=== PATIENT | male | born 1935 | race Caucasian/White ===

== ENCOUNTER 2018-03-16 12:04 | Emergency (ER) | payer MEDICARE, OTHER ==
[~2018-03-16] VITALS: Ht 180.3 cm; Wt 81.2 kg
[~2018-03-16 12:04] MED LIST: GLUCOSAMINE CH1 EAC7 PO; KLOR-CON 1010 MEQ PO; LEVOTHYROXINE100 MCG PO; MAXZIDE 37.5 MG-1 EA PO; NORCO 5-325 TA1 EACH PO; PIROXICAM20 MG PO; SIMVASTATIN20 MG PO; VALPROIC ACID250 MG PO
== END 2018-03-16 13:25 | disposition home or self-care (01) ==
LOC: ED 12:04
DX: S01.21XA Laceration without foreign body of nose, initial encounter (principal)
CPT/HCPCS: 12002; 90471; 90715; 99283-25

== ENCOUNTER 2018-05-02 15:50 | Emergency (ER) | payer MEDICARE, OTHER ==
[~2018-05-02] VITALS: Ht 180.3 cm; Wt 81.2 kg
== END 2018-05-02 19:31 | disposition home or self-care (01) ==
LOC: ED 15:50
DX: K62.5 Hemorrhage of anus and rectum (principal); I10 Essential (primary) hypertension; Z86.73 Personal history of transient ischemic attack (TIA), and cerebral infarction without residual deficits; Z87.891 Personal history of nicotine dependence; Z88.8 Allergy status to other drugs, medicaments and biological substances; Z79.899 Other long term (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
CPT/HCPCS: 74177; 80053; 85025; 85610; 99283-25; Q9967

== ENCOUNTER 2019-01-25 08:15 | Emergency (ER) | payer MEDICARE, OTHER ==
[~2019-01-25] VITALS: Ht 180.3 cm; Wt 81.2 kg
[2019-01-25] MEDS ORDERED: SILDENAFIL20 MG PO (08:36)
[2019-01-25] MEDS ORDERED: DICLOFENAC SOD100 G1 TP (08:36)
[2019-01-25] MEDS ORDERED: LOSARTAN POTAS100 MG PO (08:37)
--- NOTE | 2019-01-25 17:51 | EKG ---
[facility] [address] [facility] [place] [address] Signed Normal sinus rhythm Left axis deviation Minimal voltage criteria for LVH, may be normal variant Abnormal ECG No previous ECGs available Confirmed by ANIA MCCONNELL DO ([id number]) on 01/25/2019 5:51:09 PM Electronically Signed By: ANIA MCCONNELL DO 01/25/19 1751 PATIENT NAME: PAWEL HERRERA Electrocardiogram DATE OF : 33 PHYSICIAN: ANIA MCCONNELL DO REPORT #: [id number] REPORT IS CONFIDENTIAL AND NOT TO BE RELEASED WITHOUT AUTHORIZATION
== END 2019-01-25 15:28 | disposition home or self-care (01) ==
LOC: ED 08:15
DX: M25.532 Pain in left wrist (principal); R47.9 Unspecified speech disturbances; I10 Essential (primary) hypertension; Z86.73 Personal history of transient ischemic attack (TIA), and cerebral infarction without residual deficits; Z87.891 Personal history of nicotine dependence; Z88.8 Allergy status to other drugs, medicaments and biological substances; Z79.899 Other long term (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
CPT/HCPCS: 70450; 70551; 71045; 80053; 84484; 85025; 85610; 85730; 93005; 93010; 99285-25

== ENCOUNTER 2019-03-12 02:18 | Emergency (ER) | payer MEDICARE, OTHER ==
[~2019-03-12] VITALS: Ht 177.8 cm; Wt 82.5 kg
[~2019-03-12 02:18] MED LIST changes: +ADVIL PM CAPLE1 EACH PO; +DICLOFENAC SOD100 G1 TP; +FLOMAX0.4 MG PO; +LOSARTAN POTAS100 MG PO; +NYQUIL; +SILDENAFIL20 MG PO
[2019-03-12] MEDS ORDERED: PERCOCET 5-3251 EACH PO (03:13)
== END 2019-03-12 04:20 | disposition home or self-care (01) ==
LOC: ED 02:18
DX: G40.909 Epilepsy, unspecified, not intractable, without status epilepticus (principal); I10 Essential (primary) hypertension; Z86.73 Personal history of transient ischemic attack (TIA), and cerebral infarction without residual deficits; Z88.8 Allergy status to other drugs, medicaments and biological substances; Z79.899 Other long term (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
CPT/HCPCS: 70450; 80053; 80164; 81001; 85025; 99284-25

== ENCOUNTER 2019-04-13 20:59 | Emergency (ER) | payer MEDICARE, OTHER ==
[~2019-04-13] VITALS: Ht 177.8 cm; Wt 82.5 kg
[~2019-04-13 20:59] MED LIST changes: +PERCOCET 5-3251 EACH PO
--- OUTSIDE RECORDS SUMMARY | 2019-04-13 21:02 | XMS ---
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 Mara VISIT COUNT (12 MO.) 4 WARREN Arias TOTAL 4 NOTE: Visits indicate total known visits. 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 - Allergy status to oth drug/meds/biol subst status - Epilepsy, unsp, not intractable, without status epilepticus - Essential (primary) hypertension 01/25/2019 08:16 [facility] [place] TYPE: Emergency COMPLAINT: - WEAKNESS DIAGNOSES: - Personal history of nicotine dependence - Prsnl hx of TIA (TIA), and cereb infrc w/o resid deficits - Weakness - Unspecified speech disturbances - Allergy status to oth drug/meds/biol subst status - Other detention (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 - Pain in left wrist - Essential (primary) hypertension 05/02/2018 15:50 [facility]EN [facility] [place] TYPE: Emergency COMPLAINT: - RECTAL BLEEDING DIAGNOSES: - Essential (primary) hypertension - Personal history of nicotine dependence - Other detention (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 - Lower abdominal pain, unspecified - Hemorrhage of anus and rectum - Allergy status to oth drug/meds/biol subst status - Prsnl hx of TIA (TIA), and cereb infrc w/o resid deficits INPATIENT VISIT TRACKING (12 MO.) 04/06/2019 10:33 Vin AUGUSTE TYPE: Surgery DIAGNOSES: - Hydronephrosis w ureteral stricture, NEC [email or web address]
[2019-04-13] MEDS ORDERED: DIPHENHYDRAMINE50 M1 PO (21:25)
[2019-04-13] MEDS ORDERED: BACTRIM DS TAB1 EACH PO (21:26)
[2019-04-13] MEDS ORDERED: KEFLEX500 MG PO (22:10)
== END 2019-04-13 22:37 | disposition home or self-care (01) ==
LOC: ED 20:59
DX: N48.22 Cellulitis of corpus cavernosum and penis (principal); I10 Essential (primary) hypertension; Z86.73 Personal history of transient ischemic attack (TIA), and cerebral infarction without residual deficits; Z87.891 Personal history of nicotine dependence; Z88.8 Allergy status to other drugs, medicaments and biological substances; Z79.899 Other long term (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
CPT/HCPCS: 81001; 99283

== ENCOUNTER 2019-10-23 12:52 | Emergency (ER) | payer MEDICARE, OTHER ==
[~2019-10-23] VITALS: Ht 177.8 cm; Wt 82.5 kg
[~2019-10-23 12:52] MED LIST changes: +BACTRIM DS TAB1 EACH PO; +DIPHENHYDRAMINE50 M1 PO; +KEFLEX500 MG PO
[2019-10-23] MEDS ORDERED: TAMSULOSIN HCL0.4 MG PO (13:07)
== END 2019-10-23 14:10 | disposition home or self-care (01) ==
LOC: ED 12:52
DX: R31.9 Hematuria, unspecified (principal)

== ENCOUNTER 2019-10-28 10:28 | Emergency (ER) | payer MEDICARE, OTHER ==
[~2019-10-28] VITALS: Ht 177.8 cm; Wt 82.5 kg
[~2019-10-28 10:28] MED LIST changes: +TAMSULOSIN HCL0.4 MG PO
--- OUTSIDE RECORDS SUMMARY | 2019-10-28 10:30 | XMS ---
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 - 2 Visits in 30 Days CARE PROVIDERS BYRON RIVAS Nurse Practitioner: Family 04/14/2019-Current PHONE: [phone] Stalin has no Care Guidelines for this patient. Care History Medical/Surgical 04/14/2019 [facility] - PATIENT HAS AN APT WITH PCP ON 04/17/19 FOR FOLLOW UP TO ED VISIT. - Patient is currently established with [facility]. If patient is seen in the ED during business hours. Please contact CHWs at [facility]. Care Recommendation: If this patient has had 5 or more Emergency Department visits in the last 12 months.\T\nbsp; Patient will require education on the scope and purpose of the ED as an acute care provider not a Primary Care Provider and should not be utilized for chronic conditions.\T\nbsp; These are guidelines and the provider should exercise clinical judgment when providing care. E.D. VISIT COUNT (12 MO.) [address] Jayme Miranda [address] [facility] TOTAL 7 NOTE: Visits indicate total known visits. ED/UCC VISIT TRACKING (12 MO.) 10/28/2019 10:29 [facility] [place] TYPE: Emergency COMPLAINT: - HIGH BP, DIZZYNESS 10/28/2019 00:00 [facility] [place] TYPE: Emergency COMPLAINT: - HIGH BP, RECENT POST OP 10/24/2019 16:15 Jayme AlfaroRani [place] TYPE: Emergency COMPLAINT: - POSSIBLE KIDNEY BLEEDING - DIZZINESS AND GIDDINESS - HEMATURIA UNSPECIFIED DIAGNOSES: 0. Hematuria, unspecified 1. Hematuria, unspecified 4. 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 - Allergy status to other drugs, medicaments and biological sub 03/12/2019 02:19 [facility] [place] TYPE: Emergency COMPLAINT: - SEIZURE SYMPTOMS DIAGNOSES: - Personal history of transient ischemic attack (TIA), and cere - Other half-way (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 - Allergy status to other drugs, medicaments and biological sub - Epilepsy, unspecified, not intractable, without status epilep - Essential (primary) hypertension 01/25/2019 08:16 [facility] [place] TYPE: Emergency COMPLAINT: - WEAKNESS DIAGNOSES: - Personal history of nicotine dependence - Personal history of transient ischemic attack (TIA), and cere - Weakness - Unspecified speech disturbances - Allergy status to other drugs, medicaments and biological sub - Other half-way (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 - Pain in left wrist - Essential (primary) hypertension INPATIENT VISIT TRACKING (12 MO.) 04/06/2019 10:33 Vin [facility] [place] TYPE: Surgery DIAGNOSES: - Hydronephrosis with ureteral stricture, not elsewhere classif [email or web address]
== END 2019-10-28 13:24 | disposition home or self-care (01) ==
LOC: ED 10:28
DX: I10 Essential (primary) hypertension (principal); Z79.899 Other long term (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; Z88.8 Allergy status to other drugs, medicaments and biological substances
CPT/HCPCS: 36415; 80053; 85025; 99283

== ENCOUNTER 2019-10-28 16:37 | Emergency (ER) | payer MEDICARE, OTHER ==
[~2019-10-28] VITALS: Ht 177.8 cm; Wt 82.5 kg
--- OUTSIDE RECORDS SUMMARY | 2019-10-28 16:40 | XMS ---
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 Care History Medical/Surgical 04/14/2019 [facility] - PATIENT HAS AN APT WITH PCP ON 04/17/19 FOR FOLLOW UP TO ED VISIT. - Patient is currently established with [facility]. If patient is seen in the ED during business hours. Please contact CHWs at [facility]. Care Recommendation: If this patient has had [...] VISIT COUNT (12 MO.) 1 [facility] NOTE: Visits indicate total known visits. ED/UCC VISIT TRACKING (12 MO.) 10/28/2019 16:38 [facility]EN [facility] [place] TYPE: Emergency COMPLAINT: - VOMITING, DIARRHEA 10/28/2019 10:29 [facility]ARREN [facility] [place] TYPE: Emergency COMPLAINT: - HIGH BP, DIZZYNESS 10/28/2019 00:00 WARREN [place] [place] TYPE: Emergency COMPLAINT: - HIGH BP, RECENT POST OP 10/24/2019 16:15 Riyaollie Willemotoniel AlfaroRani [place] TYPE: Emergency COMPLAINT: - POSSIBLE KIDNEY BLEEDING - DIZZINESS AND GIDDINESS - HEMATURIA UNSPECIFIED DIAGNOSES: 0. Hematuria, unspecified 1. Hematuria, unspecified 4. 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 - Allergy status to other drugs, medicaments and biological sub 03/12/2019 02:19 WARR[facility] TYPE: Emergency COMPLAINT: - SEIZURE SYMPTOMS DIAGNOSES: - Personal history of transient ischemic attack (TIA), and cere - 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
== END 2019-10-28 21:38 ==
LOC: ED 16:37
DX: I10 Essential (primary) hypertension (principal); Z88.8 Allergy status to other drugs, medicaments and biological substances; Z79.899 Other long term (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
CPT/HCPCS: 85025; 99284; J7030

== ENCOUNTER 2019-12-07 22:17 | Observation (INO) | payer MEDICARE, OTHER ==
[~2019-12-07] VITALS: Ht 177.8 cm; Wt 80.7 kg
--- OUTSIDE RECORDS SUMMARY | 2019-12-07 22:20 | XMS ---
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 Care History Medical/Surgical 10/30/2019 [facility] Patient scheduled to see Dr. Baker on 11/07/2019 04/14/2019 [facility] - PATIENT HAS AN APT WITH PCP ON 04/17/19 FOR FOLLOW UP TO ED VISIT. - Patient is currently established with [facility]. If patient is seen in the ED during business hours. Please contact CHWs at [facility]. Care Recommendation: If this patient has had [...] E.D. VISIT COUNT (12 MO.) 1 Jayme Arita HRani 8 WARREN Arias TOTAL 9 NOTE: Visits indicate total known visits. 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 Hematuria, unspecified 1. Hematuria, unspecified 4. Malignant neoplasm of unspecified ureter 10/23/2019 12:52 [facility] [place] TYPE: Emergency COMPLAINT: - BLOOD IN URINE DIAGNOSES: - Hematuria, unspecified 04/13/2019 21:00 WARREN [facility] [place] TYPE: Emergency COMPLAINT: - CATHETER PROBLEM DIAGNOSES: - Personal history of nicotine dependence - Personal history of transient ischemic attack (TIA), and cere - Essential (primary) hypertension - Cellulitis of corpus cavernosum and penis - Other nursing home (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 - Allergy status to other drugs, medicaments and biological sub 03/12/2019 02:19 WARREN Puri [facility] [place] TYPE: Emergency COMPLAINT: - SEIZURE SYMPTOMS DIAGNOSES: - Personal history of transient ischemic attack (TIA), and cere - Other nursing home (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 - Allergy status to [...] drugs, medicaments and biological sub - Other nursing home (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 - Pain in left wrist - Essential (primary) hypertension INPATIENT VISIT TRACKING (12 MO.) 11/29/2019 05:05 [facility] [place] TYPE: Oncology DIAGNOSES: - Neoplasm of unspecified behavior of bladder - Malignant neoplasm of right renal pelvis - Malignant (primary) neoplasm, unspecified - Unsteadiness on feet 04/06/2019 10:33 [facility] [place] TYPE: Surgery DIAGNOSES: - Hydronephrosis with ureteral stricture, not elsewhere classif [email or web address]
[2019-12-07] MEDS ORDERED: POLYETHYLENE GL17 GM PO (22:38)
[2019-12-07] MEDS ORDERED: OXYCODONE HCL5 MG PO (22:38)
[2019-12-07] MEDS ORDERED: ACETAMINOPHEN-1 EAC1 PO (22:39)
--- NOTE | 2019-12-08 06:32 | NUR ---
PT WAS SWABBED FOR COVID 19 FULL PPE DAWNED AND SAMPLE SENT TO [facility]
--- NOTE | 2019-12-08 06:55 | NUR ---
PT ARRIVED TO FLOOR AT 0635 AND WAS SLID OVER TO BED 2PA WITH DRAWSHEET. RR IS EVEN AND NONLABORED. PT IS CONFUSED, OBTAINED HX FROM CHART PT'S WENT HOME BEFORE ARRIVAL TO FLOOR. TELE IS IN PLACE AND IV IS INFUSING NS @125. MICHAEL ON ABDOMEN ARE INTACT. BED ALARM IS ON AND PT IS NOW SLEEPING. CALL LIGHT IS CLOSE.
--- NOTE | 2019-12-08 08:00 | NUR ---
PT AND IN ROOM, PT VERY CONFUSED ABOUT HIS CARE AND HIS IV SITE IS INCREASING HIS AGATION. LEFT TO GO HOME. 929 PT MOVED FROM 125 TO ROOM 119 DUE TO INCREASED CONFUSION. NEW IV STARTED DUE TO ONE IS INN HIS AC.
--- NOTE | 2019-12-08 08:49 | NUR ---
ASSSITED PATIENT TO SIDE OF BED TO USE URINAL. IN ROOM/ LEFT. 1PA PATIENT TO CHAIR FOR BREAKFAST, PATIENT VERY CONFUSED BUT PLEASANT. CHAIR ALARM ON! CALL LIGHT IN REACH.
[2019-12-08] MEDS ORDERED: TYLENOL EXTRA500 MG PO (08:56)
[2019-12-08] MEDS ORDERED: BENADRYL25 MG PO (08:59)
[2019-12-08] MEDS ORDERED: NYSTATIN15 GM TOP (09:03)
[2019-12-08] MEDS ORDERED: GABAPENTIN100 MG PO (09:04)
[2019-12-08] MEDS ORDERED: LOSARTAN POTASS50 MG PO (09:05)
[2019-12-08] MEDS ORDERED: POTASSIUM CHLO10 MEQ PO (09:07)
[2019-12-08] MEDS ORDERED: MULTI VITAMIN1 EACH PO (09:12)
--- NOTE | 2019-12-08 09:13 | NUR ---
MED REC COMPLETE
--- NOTE | 2019-12-08 10:00 | NUR ---
Spoke with Torito. He has difficulty with his memory, he lives in [place], but is unable to remember his home. Thinks it is 1 story. He is unable to remember his 's name. Thinks that he may use a walker. Attempted to call his and I am unable to contact. Later she arrives at the hospital and is able to answer questions. Discussed plan for discharge and what pt will need. Initially she denies need for him to go to SNF, but then agrees she can't take care of him. I will send his chart to [facility], discussed they do not have to accept placement, but it is best to have his name on the list. states she wants to do TC here as he was accepted to our program before he left [facility] and they decline. (Pt. was not accepted to our program). Discussed with TC is not an option available today as were are near capacity. H&P, progress notes, med list,OT notes and eval faxed to [facility] in case placement is needed next week.
--- NOTE | 2019-12-08 11:01 | NUR ---
WHEN PT WAS MOVED CHAIR ALARM PLACED UNDER HIS BACK DUE TO ROOM CALL LIGHT SYSTEM DOES NOT WORK. BUT WITH THE CHAIR ALARM UNDER HIS UPPER BACK AND BUTT WE CAN HERE HIM ALARM WITH ANY MOVEMENT. BED IN THE LOWER POSITION.
--- NOTE | 2019-12-08 11:14 | NUR ---
TALKED WITH ROD AND TUBE STRAIGHTENER REGARDING PT CONFUSION AND FAMILY ISSUES.
--- NOTE | 2019-12-08 11:55 | NUR ---
PT FEEDING SELF LUNCH AND WAS LOOKING AT THE CLOCK ON THE WALL AND STATES "THAT LOOKS LIKE A SPIDER" EXPLAINED THAT IT WAS A CLOCK.
--- NOTE | 2019-12-08 11:59 | NUR ---
PT HAS RETURNED AT THIS TIME. PT WAS NOT ABLE TO CALL HER BY NAME.
--- NOTE | 2019-12-08 13:20 | NUR ---
PT BED ALARM GOING OFF FOUND PT STANDING AT THE SIDE OF THE BED ASLEEP ON THE COUCH. PT AMBULATED TO BATHROOM VOIDED AND BACK TO BED. PT PULL-UP DRY. IN BED BED ALARM AND CHAIR ALARM PLACED ON AT THIS TIME. PT WILL BE MOVED TO ROOM 110 SOON.
--- NOTE | 2019-12-08 13:34 | NUR ---
PT MOVED FROM 119 TO 110 AT THIS TIME.
--- NOTE | 2019-12-08 13:42 | NUR ---
PATIENT MOVED TO NEW ROOM. IN ROOM. VITALS AND I&OS CHARTED. BED ALARM ON. CALL LIGHT IN REACH, NO OTHER NEEDS AT THIS TIME
--- NOTE | 2019-12-08 14:12 | NUR ---
PT UP WORKING WITH PT AT THIS TIME. REMAINS IN THE ROOM AND APPEARS ASLEEP.
--- NOTE | 2019-12-08 16:00 | NUR ---
PATIENTS CALLED FOR ASSTANCE. SIDE OF BED TO USE URINAL AND THEN TO CHIAR. CHAIR [place] IS ON, CALL LIGHT IN PATIENTS LAP.
--- NOTE | 2019-12-08 16:57 | NUR ---
PT UP IN THE CHAIR, CONTIOUES TO BE INPULSIVE AND NEEDEING CLOSE MONITORING. CHAIR ALARM ON , IN THE ROOM. DINNER HAS BEEN ORDERED FOR BOTH.
--- NOTE | 2019-12-08 18:14 | NUR ---
PT SPO2 DECRESED WHEN TRYING TO SLEEP O2 2L'S NC AND SPO2 INCREASED TO 93%. PT MEDICATED WITH TYLENOL FOR PAIN, BUT PT IS UNABLE TO SAY HE HAS PAIN. REDIRECTING PT TO WHERE HE IS AND HOW LONG HE HAS BEEN HERE. IS LEAVING AT THIS TIME. BED ALARM ON AND ACROSS FROM NURSING STATION. PT HAS DENTURES SOAKING IN THE BATHROOM
--- NOTE | 2019-12-08 18:34 | NUR ---
PT APPEARS TO BE SLEEPING.
--- NOTE | 2019-12-08 20:05 | NUR ---
IV PUMP WAS BEEPING, NEW BAG OF LR IS NOW INFUSING. PT IS RESTING WITH EYES CLOSED, RR IS EVEN AND NONLABORED. CALL LIGHT IS CLOSE AND BED ALARM IS ON.
--- NOTE | 2019-12-08 20:45 | NUR ---
PT LYING IN BED DOZING IN AND OUT OF SLEEP. UP OFTEN TO VOID. 1 PA. DENIES PAIN. NO SIGNS OF DISTRESS, FLACC SCORE 0. MIDLINE DRESSING REMOVED MICHAEL ARE INTACT, WELL APPROXIMATED, NO DRAINAGE NOTED. OLD DRAIN SITE TO RLQ WITH MODERATE AMOUNT OF SEROSANGUINOUS DRAINAGE. REMOVED OLD DRESSING, CLEANSED SKIN WITH BATH WIPES, APPLIED BARRIER CREAM TO SKIN SURROUNDING SITE AND APPLIED NEW GAUZE AND ABD, SECURED WITH MEDIPORE TAPE. O2 TURNED OFF PT SATTING 98% ON RA. LUNGS CLEAR, DIMINISHED IN THE BASES. NOTED CREPITUS TO SKIN EXTENDING FROM RIGHT LOWER CHEST TO RLQ, MD HENSON MADE AWARE, NO NEW ORDERS AT THIS TIME. VSS. ORIENTED TO SELF ONLY. BED ALARM ON.
--- NOTE | 2019-12-08 21:30 | NUR ---
BED ALARM SOUNDED. PT WANTED TO USE THE RESTROOM. 1PAFWW TO RESTROOM, HE WAS UNSTEADY. HE IS NOW BACK IN BED. WARM BLANKET PROVIDED. PT SOUNDED A LITTLE SOB WHILE AMBULATING, TURNED O2 TO 2LNC. ONCE BACK IN BED HE WAS 90% RA. PT TRIED CALLING HIS WITH NO ANSWER. HE DENIES NEEDS AT THIS TIME. CALL LIGHT IS CLOSE AND BED ALARM IS ON.
--- NOTE | 2019-12-08 22:26 | NUR ---
CAUGHT PT GETTING OUT OF BED, NEEDED TO USE URINAL, PT IS BK IN MED NOW, PT WAS LOOKING FOR HIS PHONE TO CALL , PT SHOWN WHERE HIS PHONE IS, INFORMED PT WE CAN HELP FAM THE NUMBER WHEN NEEDED, CALL LIGHT IN REACH, BED ALARM IS ON, NO FURTHER REQUEST AT THIS TIME
--- NOTE | 2019-12-08 23:22 | PATH ---
[facility] [address] [place], [place] [address] Signed ORDERING PHYSICIAN: Vidal Espitia MD PATIENT NAME: PAWEL HERRERA GENDER: M : 1935 Prior History: DATE CASE NUM ADEQUACY DIAGNOSIS HPV RESULTS PHYSICIAN The 5 most recent reports are included. This history does not include results of pap smears performed at another laboratory. SPECIMEN(S): No Source Given MOLECULAR PATHOLOGY RESULTS: SARS-CoV-2 Not Detected ADDITIONAL NOTES.: The [place] Fusion SARS-CoV-2 Assay is a multiplex real-time PCR (RT-PCR) in vitro diagnostic test intended for the qualitative detection of RNA from SARS-CoV-2 from individuals who meet COVID-19 clinical and/or epidemiological criteria. In general, SARS-CoV-2 RNA can be detected during the acute phase of infection. Positive results indicate the presence of SARS-CoV-2 RNA. Clinical correlation with patient history and other diagnostic information is necessary to determine patient infection status. Positive results do not rule out bacterial infection or co-infection with other viruses. Negative results do not preclude SARS-CoV-2 infection and should not be used as the sole basis for patient management decisions. Negative results must be combined with other clinical observations, patient history, and epidemiological information. The [place] Fusion SARS-CoV-2 Assay is not yet approved or cleared by the [place] FDA. When there are no FDA-approved or cleared tests available, and other criteria are met, FDA can make tests available under an emergency access mechanism called an Emergency Use Authorization (EUA). The EUA for this test is supported by the [place] of Health and Human Service's (HHS's) declaration that circumstances exist to justify the emergency use of in vitro diagnostics for the detection and/or diagnosis of the virus that causes COVID-19. This EUA will remain in effect for the duration of the COVID-19 declaration justifying emergency of IVDs, unless it is terminated or PATIENT NAME: PAWEL HERRERA PATHOLOGY DATE OF : 33 REPORT #: [id number] PHYSICIAN: HOLLIS ARELLANO PCP: BYRON RIVAS REPORT IS CONFIDENTIAL AND NOT TO BE RELEASED WITHOUT AUTHORIZATION [facility] [address] [address] [place], [place] [address] Signed revoked by FDA, after which the test may no longer be used. The [place] Fusion SARS-CoV-2 Assay is for use only under EUA in US laboratories certified under the Clinical Laboratory Improvement Amendments of 1988 (CLIA) to perform high complexity tests. [facility] is certified under CLIA to perform high complexity clinical laboratory testing. PERFORMING LABORATORY.: Molecular testing was performed by [facility] [id number] [place] [address] (Generating Plant Superintendent: Manjit Lerma D.O.; CLIA#: [id number]) Diagnostician: System Interface Pathologist Electronically Signed 12/08/2019 Copies: ~ PATIENT NAME: PAWEL HERRERA PATHOLOGY DATE OF : 33 REPORT #: [id number] PHYSICIAN: HOLLIS ARELLANO PCP: BYRON RIVAS REPORT IS CONFIDENTIAL AND NOT TO BE RELEASED WITHOUT AUTHORIZATION
--- NOTE | 2019-12-08 23:25 | NUR ---
CAUGHT PT EXITING BED, GOT PT TO THE BATHROOM, PT NEEDED A CHANGE OF ATTENDS AND GOWN, AFTER SPILLING URINAL OF THE FLOOR, BK PT BK TO THE BED, AND PT RIPPED LRQ BANDAGE TRYING TO GET ATTENDS UP, CALL RN INTO RM TO CHANGE, GOT PT TUCKED INTO BED, ENCOURAGED PT THE SCOOT SELF UP IN BED, PT WANTS TO TELL ME THINGS BUT CANNOT GET THE RIGHT WORDS OUT, PT TELLS ME [facility]BT WANTING A SHAVE AND NEEDING TO CALL AND HOW HIS HELPS HIM, INFORMED PT THAT IT IS ONLY 1130 PM, AND THAT WE CAN HELP HIM SHAVE IN THE AM AND CALL THEN, PT SEEMS TO AGREE AT THIS TIME, NO FURTHER NEEDS,
--- NOTE | 2019-12-08 23:41 | NUR ---
PT ASSISTED TO RESTROOM BY SHAUNA RAYMOND. AMB BACKTO BED. PT RESTLESS IN BED. BED ALARM ON.
--- NOTE | 2019-12-09 00:13 | NUR ---
PT STARTED TO SIT UP IN BED, HE NEEDED TO USE THE URINAL. ASSISTED PT TO STAND AT BEDSIDE AND USE URINAL. HE IS NOW BACK IN BED WITH BED ALARM ON AND CALL LIGHT IS CLOSE.
--- NOTE | 2019-12-09 01:05 | NUR ---
VERBAL REPORT RECEIVED FROM CHRIS BLACK. QUESTIONS ANSWERED. PT RESTING IN BED WITH EYES CLOSED, RR EVEN AND UNLABORED. NO DISTRESS NOTED. CALL LIGHT IN REACH AND BED ALARM ON.
--- NOTE | 2019-12-09 03:20 | NUR ---
PT UP AND ATTMEPTING TO GET OUT OF BED, ASSISTED 1PA WITH FWW TO BATHROOM TO VOID. PT INCONTINENT AND VOIDING INTO ATTENDS AND UNTO FLOOR. WALTER CARE DONE, FRESH SOCKS GIVEN. PT THEN UP 1PA WITH FWW BACK TO BED. ASSESSMENT ALSO DONE AT THIS TIME. NEW GAUZE AND ABD PAD TO PREVIOUS DRAIN SITE TO RLQ, CREPITUS NOTED APPROX 1/3 TO 1/2 UP RIGHT LATERAL. PT DENIES PAIN AND SOB. O2 SAT IN THE LOW 90'S ON RA, HR 61. NO DISTRESS, BED ALARM ON FOR SAFETY. CALL LIGHT IN REACH.
--- NOTE | 2019-12-09 04:24 | NUR ---
PATIENT'S CALLED AND ASKED FOR UPDATE. QUESTIONS ANSWERED. NO FURTHER NEEDS/CONCERNS/QUESTIONS AT THIS TIME.
--- NOTE | 2019-12-09 05:16 | NUR ---
VS AND I&O'S COMPLETE. SCHEDULED THYROID MED GIVEN, NO ISSUES WITH SWALLOWING. PT UP TO VOID VIA URINAL AND BACK IN BED. BATCH MIXER SEGUNDO IN ROOM ASSISTING WITH FINAL NEEDS AND POSITIONING IN BED.
--- NOTE | 2019-12-09 07:20 | NUR ---
PT RESTING SUPINE IN BED EYES CLOSED AND RESPIRATIONS EVEN AND UNLABORED. CALL LIGHT AND H2O IN REACH. REPORT RECEIVED FROM KIRA KHALIL RN.
--- NOTE | 2019-12-09 07:35 | NUR ---
PATIENT SLEEPING. WHITE BOARD UPDATED. CALL LIGHT WITHIN REACH. NO OTHER NEEDS AT THIS TIME
--- NOTE | 2019-12-09 08:06 | NUR ---
PT SITTING UP IN BED BED ALARM IS GOING OFF PT STATES "I GOTTA PEE!" PT ASSISTED TO STANDING POSITION AND WAS ASSISTED WITH URINAL. PT VOIDS CLEAR YELLOW URINE AND WAS ASSISTED UP TO CHAIR AND CALL LIGHT AND H2O IN REACH. CHAIR ALARM ON. PT DENIES FURTHER NEEDS OR CONCERNS.
--- NOTE | 2019-12-09 08:24 | NUR ---
PATIENT ASSITED TO USE THE URINAL AND TRANSFER TO CHAIR. PATIENT'S HANDS AND FACE WASHED. LINENS CHANGED. PATIENT BREAKFAST ORDERED. WARM BLANKET PROVIDED. CHAIR ALARM ON. CALL LIGHT WITHIN REACH. NO OTHER NEEDS AT THIS TIME
--- NOTE | 2019-12-09 08:58 | NUR ---
Pt sitting up in chair eating omlet adn watching tv. Assessment completed and am meds administered. Call light and h2o in reach.
--- NOTE | 2019-12-09 09:48 | NUR ---
Pt up walked several laps in halls with physical therapy.Pt now back to bed resting in semifowlers position with call light in [facility] and bed alarm on.
--- NOTE | 2019-12-09 09:58 | NUR ---
PATIENT RESTING IN BED. RN IN ROOM. VITAL SIGNS AND I&O DONE. HIGH SYSTOLIC BLOOD PRESSURE. RN NOTIFIED. CALL LIGHT WITHIN REACH. BED ALARM ON. NO OTHER NEEDS AT THIS TIME
--- NOTE | 2019-12-09 11:56 | NUR ---
PATIENT RESTING IN BED. PATIENT'S LUNCH ORDERED. CALL LIGHT WITHIN REACH. BED ALARM ON. NO OTHER NEEDS AT THIS TIME
--- NOTE | 2019-12-09 13:14 | NUR ---
PATIENT ASSISTED TO USE THE URINAL. ONE PERSON ASSISTING. PATIENT BACKS TO BED. VITAL SIGNS AND I&O DONE. CALL LIGHT WITHIN REACH. NO OTHER NEEDS AT THIS TIME
--- NOTE | 2019-12-09 13:35 | NUR ---
PT RESTING IN SEMIFOWLERS POSITION IN BED ALERT AND ORIENTED. CALL LIGHT AND H2O IN REACH. PT ASSESSMENT COMPLETED. NO NEEDS OR CONCERNS VOICED.
--- NOTE | 2019-12-09 14:30 | NUR ---
RIGHT LOWER INCISION CONTINUES TO WEAP CLEAR SEROUS FLUID DR HENSON AWARE AND THIS WAS COVERED WITH OPSITE PER MD REQUEST. GOWN CHANGED. CALL LIGHT AND H2O IN REACH.
--- NOTE | 2019-12-09 16:53 | NUR ---
Pt reports aching 4/10 pain to lower back. Pt requested and received prn po tylenol. Call light and h2o in reach. No further needs or concerns voiced
--- NOTE | 2019-12-09 17:15 | NUR ---
Pt sitting up in bed eating steak, mashed potatoes and veggies. Pt denies needs or concerns. at bedside with pt. bed alarm on.
--- NOTE | 2019-12-09 17:48 | NUR ---
PATIENT SITTING UP IN BED. IN ROOM. VITAL SIGNS AND I&O DONE. CALL LIGHT WITHIN REACH. BED ALARM ON. NO OTHER NEEDS AT THIS TIME
--- NOTE | 2019-12-09 18:47 | NUR ---
BED ALARMING PT STATES "IV GOT TO GET TO THE BATHROOM" ASSISTED UP TO RESTROOM PT HAD UNMEASURED VOID IN TOILET. PT BACK TO BED BED ALARM ON IV FLUIDS INFUSING. NO FURTHER NEEDS OR CONCERS VOICED. PT REMAINS IN VIEW OF NURSING STATION.
--- NOTE | 2019-12-09 19:02 | NUR ---
SHIFT REPORT [facility] AT BEDSIDE. PT RESTING QUIETLY IN BED WITH EYES CLOSED. RR EVEN AND UNLABORED, NO DISTRESS NOTED. IV FLUIDS INFUSING, BED AARM ON. CALL LIGHT IN REACH.
--- NOTE | 2019-12-09 21:59 | NUR ---
PT CALLED FOR ASSISTANCE TO RESTROOM, THEN STARTED HANGING LEGS OVER SIDE OF BED. 1PA TO RESTROOM AND BACK TO BED. HE DENIES FURTHER NEEDS AT THIS TIME. CALL LIGHT IS CLOSE AND BED ALARM IS ON.
--- NOTE | 2019-12-09 22:14 | NUR ---
IV PUMP WAS BEEPING, NEW BAG OF LR IS NOW INFUSING. PT DENIES NEEDS. CALL LIGHT IS CLOSE AND BED ALARM IS ON.
--- NOTE | 2019-12-09 22:30 | NUR ---
ASSESSMENT COMPLETE, SCHEDULED MEDS GIVEN (SEE EMAR). PT DENIES PAIN AND NAUSEA. A/O ONLY TO SELF, BED ALARM ON. OPSITE TO RLQ INTACT, ABD COVER REMAINS IN PLACE. WILL MONITOR, DRAINAGE. NO ADDITIONAL NEEDS, CALL LIGHT IN REACH.
--- NOTE | 2019-12-09 22:30 | NUR ---
TOOK PT VITALS, I&Os IN, FRESH ICE WATER PROVIDED, RN TO BE IN RM SHORTLY, NO FURTHER REQUEST AT THIS TIME
--- NOTE | 2019-12-09 23:00 | NUR ---
PT ATTEMPTING TO GET OUT OF BED, 1PA TO VOID VIA URINAL. PT BACK TO BED, DENIES FURTHER NEEDS, CALL LIGHT IN REACH.
--- NOTE | 2019-12-09 23:39 | NUR ---
PT CALLED, NEEDED HELP TURNING TV OFF, ASST'D PT, NO FURTHER REQUEST AT THIS TIME
--- NOTE | 2019-12-10 00:25 | NUR ---
PT RESTING IN BED WITH EYES CLOSED. RR EVEN AND UNLABORED, NO DISTRESS NOTED. IV FLUIDS INFUSING PER MD ORDERS. CALL LIGHT IN REACH.
--- NOTE | 2019-12-10 01:35 | NUR ---
PT ATTEMPTING TO CRAWL OUT OF BED, PT ASSISTED VIA 1P WITH URINAL AND BACK TO BED. ALARM ON, NO FURTHER NEEDS, CALL LIGHT IN REACH.
--- NOTE | 2019-12-10 03:32 | NUR ---
PT RECENTLY UP TO VOID, ASSESSMENT COMPLETE. NO NEW CHANGES. PT DENIES PAIN OR NAUSEA. OPSITE DRESSING AND ABD PAD REPLACED. CREPITUS REMAINS TO RIGHT LATERAL. NO SOB OR DISTRESS NOTED. PT REMAINS A/O ONLY TO SELF. IV SITE X2 WNL, IV FLUIDS INFUSING. CALL LIGHT IN REACH AND BED ALARM ON.
--- NOTE | 2019-12-10 04:54 | NUR ---
PT CALLED TO GET UP AND VOID, PROVIDED PT WITH URINAL, PT IS NOW BK TO BED AT THIS TIME, NO FURTHER REQUESTS, CALL LIGHT IS IN PLACE, BED ALARM IS SET
--- NOTE | 2019-12-10 05:01 | NUR ---
VSS AND I&O'S COMPLETE. SCHEDULED THYROID MED GIVEN (SEE EMAR). PT DENIES ADDITIONAL NEEDS, CALL LIGHT IN REACH. BED ALARM ON FOR SAFETY.
--- NOTE | 2019-12-10 07:28 | NUR ---
PT RESTING SUPINE IN BED EYES CLOSED AND RESPIRATIONS EVEN AND UNLABORED. BED ALARM ON AND PT WITHIN VIEW OF NURSING STATION. REPORT RECEIVED FROM NOC SHIFT RN.
--- NOTE | 2019-12-10 07:40 | NUR ---
PATIENT SLEEPING. WHITE BOARD UPDATED. CALL LIGHT WITHIN REACH. NO OTHER NEEDS AT THIS TIME
--- NOTE | 2019-12-10 08:42 | NUR ---
PT RESTING SUPINE IN BED ALERT TO VOICE, AM MEDS ADMINISTERED. ASSESSMENT COMPLETED. CALL LIGHT AND H2O IN REACH. BED ALARM ON
--- NOTE | 2019-12-10 09:51 | NUR ---
PATIENT RESTING IN BED. VITAL SIGNS AND I&O DONE. CALL LIGHT WITHIN REACH. NO OTHER NEEDS AT THIS TIME
--- NOTE | 2019-12-10 10:55 | NUR ---
PER DR HENSON'S REQUEST ABDOMINAL STAPLE (X15) WERE REMOVED AT THIS TIME. MICHAEL CAME OUT WITHOUT DIFFICULTY, SKIN TO SITES WHERE MICHAEL WERE REMOVED REMAINS APPROXIMATED WITH NO S/SX'S OF INFECTION AND PT TOLERATED WELL. CALL LIGHT AND H2O IN REACH AND BED ALARM ON.
--- NOTE | 2019-12-10 11:01 | NUR ---
PATIENT RESTING IN BED. PATIENT USES THE BATHROOM. PATIENT TAKES A SHOWER. ORAL CARE DONE. SHAVE DONE. PATIENT BACKS TO CHAIR. ONE PERSON ASSISTING WITH WALKER. LINENS CHANGED. CALL LIGHT WITHIN REACH. CHAIR ALARM ON. NO OTHER NEEDS AT THIS TIME
--- NOTE | 2019-12-10 13:05 | NUR ---
PT RESTING IN SEMIFOWELRS POSITION IN BED ALERT AND ORIENTED TO SELF WATCHING TV. PT ASSESSMENT COMPLETED. CALL LIGHT AND H2O IN REACH. PT REMAINS IMPULSIVE. BED ALARM ON AND PT REMAINS IN VIEW OF NURSING STATION. WILL CTM.
--- NOTE | 2019-12-10 13:36 | NUR ---
PATIENT SITTING UP IN BED. VITAL SIGNS AND I&O DONE. CALL LIGHT WITHIN REACH. NO OTHER NEEDS AT THIS TIME
--- NOTE | 2019-12-10 15:35 | NUR ---
PT SITTING UP IN BED ALERT AND ORIENTED TO SELF, FRESH H2O IN REACH, DINNER ORDERED. CALL LIGHT IN REACH. BED ALARM ON. NO NEEDS OR CONCERNS VOICED.
--- NOTE | 2019-12-10 17:13 | NUR ---
PATIENT SITTING UP IN BED. VITAL SIGNS AND I&O DONE. SETS UP TABLE FOR DINNER. ICE WATER GIVEN. CALL LIGHT WITHIN REACH. NO OTHER NEEDS AT THIS TIME
--- NOTE | 2019-12-10 18:20 | NUR ---
CALL LIGHT ANSWERED. PATIENT COMPLAINS ABOUT HEADACHE. RN NOTIFIED. CALL LIGHT WITHIN REACH. NO OTHER NEEDS AT THIS TIME
--- NOTE | 2019-12-10 18:31 | NUR ---
PT ALERT AND ORIENTED TO PERSON. PT REPORTS MILD HEADACHE AND BACK PAIN. PRN TYLENOL ADMINISTERED PER PT REQUEST. CALL LIGHT AND H2O IN REACH.
--- NOTE | 2019-12-10 19:00 | NUR ---
SHIFT REPORT RECEIVED FROM DAYSNDFT CHRIS RIOS AT BEDSIDE. PT AWAKE AND RESTING IN BED. RR EVEN AND UNLABORED. NO DISTRESS NOTED. IV FLUIDS INFUSING, BED ALARM ON. CALL LIGHT IN REACH.
--- NOTE | 2019-12-10 19:55 | NUR ---
TOOK PT VITALS AND I&Os IN, RN WILL BE IN WITH PM MEDS AND ASSESSMENT SHORTY, CALL LIGHT IN HAND, BED ALARM REMAINS ON, NO FURTHER REQUEST AT THIS TIME
--- NOTE | 2019-12-10 20:26 | NUR ---
ASSESSMENT COMPLETE, SCHEDULED MEDS GIVEN (SEE EMAR). PT RECENTLY MEDICATED WITH PRN TYLENOL. RATES PAIN 10/15, SCHEDULED GABAPENTIN GIVEN. PT A/O TO PERSON, PLACE, AND DATE. BED ALRM REMAINS ON FOR SAFETY. IV FLUIDS INFUSING PER MD ORDERS, SITES X2 WNL. PT DENIES NAUSEA. INCISION WNL, OPEN TO AIR, MICHAEL REMOVED EARLIER ON DAYSHIFT PER REPORT. OLD DRAIN SITE TO RLQ REMAINS SEEPING, ABD PAD IN PLACE, SEROUS IN COLOR. GENERALIZED CREPITUS CONTINUES TO RIGHT LATERAL. NO FURTHER NEED, CALL LIGHT IN REACH.
--- NOTE | 2019-12-10 20:58 | NUR ---
pt used call light to ask for assistance into the restroom. pt had lg BM, nothing further needed at this time, bed alarm set, call light and BST in place.
--- NOTE | 2019-12-10 21:15 | NUR ---
pt used call light to ask for his dentures to be placed in denture cup. nothing further needed at this time.
--- NOTE | 2019-12-10 23:46 | NUR ---
PT CALLED TO HELP WITH VOID VIA URINAL. PT BACK TO BED, ABD PAD TO RLQ REPLACED. NO FURTHER NEEDS. IV FLUIDS INFUSING, SITE WNL. BED ALARM ON. CALL LIGHT IN REACH.
--- NOTE | 2019-12-11 01:52 | NUR ---
CALL LIGHT ANSWERED. SBA AT SIDE OF BED FOR VOID IN URINAL. pt BACK IN BED, ALARM IN PLACE. C/O PAIN IN RIGHT LOWER ABD, RIGHT SIDE, 5-10. PRN TYLENOL ADMINISTERED, ICE PACK IN PLACE. PRIMARY RN REMI NOTIFIED AND IN ROOM ASSESSING pt. CALL LIGHT IN REACH.
--- NOTE | 2019-12-11 01:53 | NUR ---
provided an ice pack per pt request
--- NOTE | 2019-12-11 02:01 | NUR ---
ROUNDED ON PT, RECENTLY MEDICATED WITH PRN TYLENOL FOR 5-6/10 IN RLQ. ABD PAD REMAINS IN PLACE. CALLS APPROPERIATELY AT THIS TIME. IV FLUIDS INFUSING, SITE WNL. ICE PACK TO ABD FOR COMFORT. NO FURTHER NEEDS, CALL LIGHT IN REACH.
--- NOTE | 2019-12-11 04:33 | NUR ---
VS AND I&O'S COMPLETE. NEW BAG IV FLUIDS HUNG AND INFUSING PER MD ORDERS. IV SITES X2 WNL. BED ALRM ON, ROOM TIDED. NO FURTHER NEEDS, CALL LIGHT IN REACH AND BED ALARM ON.
--- NOTE | 2019-12-11 05:43 | NUR ---
SCHEDULED THYROID MED GIVEN (SEE EMAR). NO ISSUES NOTED. CALL LIGHT IN REACH AND BED ALRM ON FOR SAFETY.
--- NOTE | 2019-12-11 06:46 | NUR ---
PT REFUSING TO GET OOB TO VOID, RECENTLY REPORTED NEED TO VOID. PT ALSO REFUSING VS, EDUCATION PROVIDED ON BOTH. PT CONTINUES TO REFUSE. FLOAT TENDER MADE AWARE.
--- NOTE | 2019-12-11 07:15 | NUR ---
BEDSIDE HANDOFF REPORT RECEIVED FROM REGISTERED NURSE CARDIOVASCULAR ICU RN. PT RESTING IN BED. IV FLUIDS INFUSING AT 100ML/HR. PT DENIES NEEDS AT THIS TIME.
--- NOTE | 2019-12-11 07:58 | NUR ---
PATIENT SLEEPING. WHITE BOARD UPDATED. CALL LIGHT WITHIN REACH. NO OTHER NEEDS AT THIS TIME
--- NOTE | 2019-12-11 08:40 | NUR ---
PT ASSISTED TO USE URINAL AND THEN SBA TO CHAIR FOR BREAKFAST. PT ON ROOM AIR, LUNG SOUNDS CLEAR. BOWEL TONES ACTIVE, DENIES NAUSEA, TOLERATING LOW SODIUM DIET. CMS INTACT, WITHOUT EDEMA. IV INFUSING LR AT 100 ML/HR. PT DENIES OTHER NEEDS AT THIS TIME.
--- NOTE | 2019-12-11 09:12 | NUR ---
THIS AM STAFF MEETING WITH MD FLAQUITA SAID SHE WANTS PT TO BE S/L THIS AM. IVF S/L AT THIS TIME.
--- NOTE | 2019-12-11 09:20 | NUR ---
Spoke with Torito. He is upset with as she states he cannot come home. States his children are upset by this. He does agree to go to a SNF for rehab. I sent the chart last Wednesday to [facility]. I have called and am awaiting return call.
--- NOTE | 2019-12-11 09:30 | NUR ---
Received call from Gilma, pt's daughter in law. She states her immediate family have been exposed to Covid and are on isolation as well as pt's other son. She states pt's , Barbara is stating she has covid, but has not been exposed to any of the family. Updated Barbara last week had suggest Torito go to a SNF for rehab so I have sent the chart to [facility]. I called Barbara and she states she and her brother who transport Torito home from his surgery are both not feeling well. She has not been tested for covid and states she does not have the money. Discussed she needs to have a test. is not wanting to get tested.
--- NOTE | 2019-12-11 09:30 | NUR ---
MORNING MEDICATIONS ADMINISTERED PER EMAR. CASE MANAGEMENT AT BEDSIDE, DISCUSSED DISCHARGE TO SNF FOR P.T. PT ASSISTED TO MAKE PHONE CALL. PT DENIES OTHER NEEDS AT THIS TIME.
--- NOTE | 2019-12-11 09:45 | NUR ---
PATIENT SITTING UP IN CHAIR. VITAL SIGNS AND I&O DONE. CALL LIGHT WITHIN REACH. CHAIR ALARM ON. NO OTHER NEEDS AT THIS TIME
--- NOTE | 2019-12-11 10:25 | NUR ---
PT REQUEST PAIN MEDICATION, FOR 5/10 GENERALIZED PAIN. TYLENOL 500MG PO PRN.
--- NOTE | 2019-12-11 10:26 | NUR ---
PT ON THE PHONE TALKING TP FAMILY ABOUT SWINGBED PROGRAM. HE SAID HE DISCUSSED IT WITH ANDRZEJ PEREZ.
--- NOTE | 2019-12-11 11:23 | NUR ---
FREE WATER FLUSH OF 50ML WATER PER ORDER, G TUBE WITH 5ML RESIDUAL. PT RATING PAIN 6/10, GIVEN 30MG TORADOL IV. PT REQUESTING BROTH, ICE CREAM AND TEA WITH HONEY, ORDER PLACED WITH DIETARY. PT REQUESTING SHOWER, WILL COMPLETE AFTER CEFEPIME INFUSION COMPLETED. PT DENIES OTHER NEEDS AT THIS TIME.
--- NOTE | 2019-12-11 12:00 | NUR ---
Called and left a message with WBT as I have not received a return phone call.
--- NOTE | 2019-12-11 13:55 | NUR ---
PATIENT SITTING UP IN CHAIR. VITAL SIGNS AND I&O DONE. CALL LIGHT WITHIN REACH. NO OTHER NEEDS AT THIS TIME
--- NOTE | 2019-12-11 13:58 | NUR ---
Received updated from ETHAN Villanueva, new intake person. She states she has spoken with [facility] e mail system administrator and Annelise RN and due to census and staffing, they are unable to take pts. for the next few days. Called and spoke to both Barbara and Gilma. UPdated I will work on finding a [facility]. Matthew states pt cannot go to [place]. Chart faxed to [facility] and rehab. Per Gilma, pt's daughter lives in [place] and Gilma also works there.
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
--- NOTE | 2019-12-11 14:30 | NUR ---
PT ASSISTED FROM BATHROOM TO BED, BED ALARM IN PLACE. PT DENIES OTHER NEEDS AT THIS TIME.
--- NOTE | 2019-12-11 17:03 | NUR ---
PATIENT SITTING UP IN CHAIR. SISTER IN LAW IN ROOM. VITAL SIGNS AND I&O DONE. CHAIR ALARM ON. CALL LIGHT WITHIN REACH. NO OTHER NEEDS AT THIS TIME
--- NOTE | 2019-12-11 17:45 | NUR ---
PT HAD UNEVENTFUL DAY. AWAITING DISCHARGE TO SNF, PENDING ACCEPTANCE OR BED AVAILABILITY. PT UP WITH SBA WITH FWW. PT ALERT AND ORIENTED, IMPULSIVE. PT ON ROOM AIR, LUNG SOUNDS CLEAR. VOIDING QS. TOLERATING DIET.
--- NOTE | 2019-12-11 19:31 | NUR ---
REPORT RECEIVED FROM CHRIS SPARROW. PATIENT RESTING IN BED, LIGHTS OFF. BED ALARM ON. A+O. CALL LIGHT IN REACH. PT STATES NO NEEDS AT THIS TIME.
--- NOTE | 2019-12-11 20:17 | NUR ---
SCHEDULED MEDICATIONS ADMINISTERED. ASSESSMENT COMPLETE, VS AND I/O'S COMPLETE. PRN PAIN MEDICATION GIVEN. PATIENT AMBULATED TO TO VOID, SBA. ORAL CARE COMPLETE. WATER REFRESHED, REPOSITIONED IN BED, LIGHTS OFF. CALL LIGHT WITHIN REACH. IV WNL. PT REPORTS NO OTHER NEEDS AT THIS TIME.
--- NOTE | 2019-12-11 23:21 | NUR ---
ANSWERED CALL LIGHT, PT USED URINAL TO VOID THEN AMBULATED TO BR, 1X STOOL. PATIENT STATES NO PAIN. STEADY GAIT. BACK TO BED, CALL LIGHT IN REACH. NO FURTHER NEEDS AT THIS TIME.
--- NOTE | 2019-12-12 00:51 | NUR ---
ROUNDED ON PATIENT, LAYING IN BED, EYES CLOSED WITH LIGHTS OFF. BREATHING EVEN AND UNLABORED. CALL LIGHT WITHIN REACH. NO APPARENT NEEDS AT THIS TIME.
--- NOTE | 2019-12-12 05:30 | NUR ---
[facility] DOWNTIME. PT USES CALL LIGHT APPROPRIATELY, HAS AMBULATED TO AND ALSO USED URINAL TO VOID. ASSESSMENT COMPLETE, VS AND I/O'S COMPLETE. PT REPORTS NO PAIN OR NAUSEA AT THIS TIME. BED IN LOW POSITION, BED ALARM ON. CALL LIGHT WITHIN REACH.
--- NOTE | 2019-12-12 05:39 | NUR ---
[facility] DOWNTIME THIS SHIFT. PATIENT HAS USED CALL LIGHT APPROPRIATELY, USING URINAL OR AMBULATING TO BR TO VOID. PRN TYLENOL ADMINISTERED x1 WITH RELIEF FOUND. ON ROOM AIR, TOLERATING WELL. CRACKLES IN LUNG BASES. HEART SOUNDS REGULAR. BOWEL TONES ACTIVE, A+O, VSS. INCISIONS WNL, NO DRAINAGE NOTED. WILL CONTINUE TO MONITOR.
--- NOTE | 2019-12-12 06:03 | NUR ---
ANSWERED CALL LIGHT, PT USED URINAL TO VOID. SCHEDULED MEDICATIONS ADMINISTERED. PT STATES NO OTHER NEEDS AT THIS TIME. CALL LIGHT IN REACH.
--- NOTE | 2019-12-12 07:25 | NUR ---
THIS RN RECIEVED REPORT FROM ANDREAS PEREZ. PT APPEARS TO BE RESTING IN BED AT THIS TIME WITH RESPIRATIONS NOTED AND CALL LIGHT WITHIN REACH.
--- NOTE | 2019-12-12 09:00 | NUR ---
Per IDT meeting with Dr. Rey, Torito has met his goals. PT states he has met their goals and he no longer qualifies for a SNF placement. Updated I will call his , but she has been resistant as she feels she has covid. Will notify he needs to discharged.
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
--- NOTE | 2019-12-12 09:30 | NUR ---
Called John and Gilma. UPdated pt was able to meet goals with PT last night and again this am. He will be able to dc to home. Barbara states she is feeling much better and thinks she had a reaction to her flu shot. She will pick Torito up when discharged. She asks if Dr. Rey will order PT and informed I will ask.
--- NOTE | 2019-12-12 09:40 | NUR ---
Spoke with Dr eRy and she states she cannot order PT as pt met his goals. She suggests she contact pts' PCP. Barbara knapp.
--- NOTE | 2019-12-12 10:10 | NUR ---
PATIENT RESTING IN BED. VITAL SIGNS AND I&O DONE. PATIENT ASKS FOR HEADACHE MEDICINE. RN NOTIFIED. CALL LIGHT WITHIN REACH. NO OTHER NEEDS AT THIS TIME
[2019-12-12] MEDS ORDERED: SULFAMETHOXAZO1 EAC1 PO (10:28)
--- NOTE | 2019-12-12 12:39 | NUR ---
PATIENT SITTING UP IN BED. THE FINAL VITAL SIGNS WERE OBTAINED PRIOR TO DISCHARGE FROM THE UNIT
== END 2019-12-12 13:30 | disposition home or self-care (01) ==
LOC: ED 22:17 → MS 22:18
PROVIDERS: ADMIT Student in an Organized Health Care Education/Training Program; ATTEND Student in an Organized Health Care Education/Training Program
DX: N17.9 Acute kidney failure, unspecified (principal); N39.0 Urinary tract infection, site not specified; E87.1 Hypo-osmolality and hyponatremia; F03.90 Unspecified dementia, unspecified severity, without behavioral disturbance, psychotic disturbance, mood disturbance, and anxiety; G89.4 Chronic pain syndrome; I10 Essential (primary) hypertension; E03.9 Hypothyroidism, unspecified; N40.0 Benign prostatic hyperplasia without lower urinary tract symptoms; G40.909 Epilepsy, unspecified, not intractable, without status epilepticus; Z20.828 Contact with and (suspected) exposure to other viral communicable diseases; Z85.528 Personal history of other malignant neoplasm of kidney; Z90.5 Acquired absence of kidney; Z88.8 Allergy status to other drugs, medicaments and biological substances; Z79.899 Other long term (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
CPT/HCPCS: 36415; 71045; 80048; 80053; 81001; 83735; 83880; 84100; 85025; 87077; 87088; 87186; 96361; 96365; 96366; 96372; 96376; 97110; 97112; 97116; 97162; 97165; 97530; 97535; 99285-25; C9803; G0378; J0696; J1650; J7030; J7121; U0003

== ENCOUNTER 2020-01-24 19:42 | Emergency (ER) | payer MEDICARE, OTHER ==
[~2020-01-24] VITALS: Ht 177.8 cm; Wt 79.0 kg
[~2020-01-24 19:42] MED LIST changes: +ACETAMINOPHEN-1 EAC1 PO; +BENADRYL25 MG PO; +GABAPENTIN100 MG PO; +LOSARTAN POTASS50 MG PO; +MULTI VITAMIN1 EACH PO; +NYSTATIN15 GM TOP; +OXYCODONE HCL5 MG PO; +POLYETHYLENE GL17 GM PO; +POTASSIUM CHLO10 MEQ PO; +SULFAMETHOXAZO1 EAC1 PO; +TYLENOL EXTRA500 MG PO
--- OUTSIDE RECORDS SUMMARY | 2020-01-24 19:46 | XMS ---
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 Care History Medical/Surgical 12/11/2019 [facility] Patient seen in ED for post op concerns and was diagnosed with acute kidney injury to which he was admitted to [facility].\T\nbsp; Patient has 2:40 appointment with PCP Manuel Rivas.\T\nbsp; Informed Manuel that patient still in hospital. 10/30/2019 [facility] Patient scheduled to see Dr. Baker on 11/07/2019 04/14/2019 [facility] - PATIENT HAS AN APT WITH PCP ON 04/17/19 FOR FOLLOW UP TO ED VISIT. - Patient is currently established with [facility]. If patient is seen in the ED during business hours. Please contact CHWs at [facility]. Care Recommendation: If this patient has had [...] E.D. VISIT COUNT (12 MO.) 1 Jayme Arias TOTAL 10 NOTE: Visits indicate total known visits. 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 [facility] [place] TYPE: Emergency COMPLAINT: - HIGH BP, DIZZYNESS DIAGNOSES: - Allergy status to other drugs, medicaments and biological substances - Other 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 - Essential (primary) hypertension 10/28/2019 00:[address] [facility] [place] TYPE: Emergency COMPLAINT: - HIGH BP, RECENT POST OP 10/24/2019 16:15 [facility] TYPE: Emergency COMPLAINT: - POSSIBLE KIDNEY BLEEDING - DIZZINESS AND GIDDINESS - HEMATURIA UNSPECIFIED DIAGNOSES: 0. Hematuria, unspecified 1. Hematuria, unspecified 4. 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 - Allergy status to other drugs, medicaments and biological substances 03/12/2019 02:19 [facility] [place] TYPE: Emergency COMPLAINT: - SEIZURE SYMPTOMS DIAGNOSES: - Personal history of transient ischemic attack (TIA), and cerebral infarction without residual deficits - 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 (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 - Allergy status to other drugs, medicaments and biological substances - Epilepsy, unspecified, not intractable, without status epilepticus - Essential (primary) hypertension 01/25/2019 08:16 [facility] [place] TYPE: Emergency COMPLAINT: - WEAKNESS DIAGNOSES: - Personal history of nicotine dependence - Personal history of transient ischemic attack (TIA), and cerebral infarction without residual deficits - Weakness - Unspecified speech disturbances - Allergy status to other drugs, medicaments and biological substances - Other [place] [facility] (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 - Pain in left wrist - Essential (primary) hypertension INPATIENT VISIT TRACKING (12 MO.) 12/07/2019 22:18 [facility] [place] TYPE: Observation COMPLAINT: - DEHYDRATION5 DIAGNOSES: - Unspecified dementia without behavioral disturbance - Personal history of other malignant neoplasm of kidney - Acute kidney failure, unspecified - Acquired absence of kidney - Hypothyroidism, unspecified - Essential (primary) hypertension - Contact with and (suspected) exposure to other viral communicable diseases - Benign prostatic hyperplasia without lower urinary tract symptoms - Hypo-osmolality and hyponatremia - Epilepsy, unspecified, not intractable, without status epilepticus - Urinary tract infection, site not specified - Cough - Chronic pain syndrome - 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
[2020-01-24] MEDS ORDERED: NIFEDIPINE ER30 MG PO (20:10)
--- NOTE | 2020-01-24 22:39 | EKG ---
[facility] [address] [facility] [place] [address] Signed Normal sinus rhythm Septal infarct , age undetermined Abnormal ECG When compared with ECG of 06-MAR-2019 10:43, Septal infarct is now present Confirmed by CHARLY HENSON MD ([id number]) on 01/24/2020 10:39:30 PM Electronically Signed By: CHARLY HENSON MD 01/24/20 2239 PATIENT NAME: PAWEL HERRERA Electrocardiogram DATE OF : 33 PHYSICIAN: CHARLY HENSON MD REPORT #: [id number] REPORT IS CONFIDENTIAL AND NOT TO BE RELEASED WITHOUT AUTHORIZATION
== END 2020-01-24 21:18 | disposition home or self-care (01) ==
LOC: ED 19:42
DX: I10 Essential (primary) hypertension (principal); Z86.73 Personal history of transient ischemic attack (TIA), and cerebral infarction without residual deficits; Z85.46 Personal history of malignant neoplasm of prostate; Z85.528 Personal history of other malignant neoplasm of kidney; Z88.1 Allergy status to other antibiotic agents; Z88.8 Allergy status to other drugs, medicaments and biological substances; Z79.899 Other long term (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
CPT/HCPCS: 93005; 93010; 99283-25

== ENCOUNTER 2020-01-29 19:58 | Emergency (ER) | payer MEDICARE, OTHER ==
[~2020-01-29] VITALS: Ht 177.8 cm; Wt 78.9 kg
[~2020-01-29 19:58] MED LIST changes: +NIFEDIPINE ER30 MG PO
--- OUTSIDE RECORDS SUMMARY | 2020-01-29 20:02 | XMS ---
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 Care History Medical/Surgical 12/11/2019 [facility] Patient seen in ED for post op concerns and was diagnosed with acute kidney injury to which he was admitted to [facility].\T\nbsp; Patient has 2:40 appointment with PCP Manuel Rivas.\T\nbsp; Informed Manuel that patient still in hospital. 10/30/2019 [facility] Patient scheduled to see Dr. Baker on 11/07/2019 04/14/2019 [facility] - PATIENT HAS AN APT WITH PCP ON 04/17/19 FOR FOLLOW UP TO ED VISIT. - Patient is currently established with [facility]. If patient is seen in the ED during business hours. Please contact CHWs at [facility]. Care Recommendation: If this patient has [...] VISIT COUNT (12 MO.) 1 [facility] NOTE: Visits indicate total known visits. ED/C VISIT TRACKING (12 MO.) 01/29/2020 19:59 [facility] [place] [facility] [place] TYPE: Emergency COMPLAINT: - BLOOD PRESSURE PROBLEMS 01/24/2020 19:[address] 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 - Allergy status to other drugs, medicaments and biological substances - Essential (primary) hypertension - Allergy status to other antibiotic agents - Personal history of transient ischemic attack (TIA), and cerebral infarction without residual deficits - Personal history of other malignant neoplasm of kidney - Personal history of malignant neoplasm of prostate 12/07/2019 22:17 [facility] [place] TYPE: Emergency COMPLAINT: - POST OP PROBLEM 10/28/2019 16:38 W[facility]EN [facility] [place] TYPE: Emergency COMPLAINT: - VOMITING, DIARRHEA DIAGNOSES: - Other tank terminal gauger (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 - Essential (primary) hypertension - Allergy status to other drugs, medicaments and biological substances - Essential (primary) hypertension 10/28/2019 10:29 [place] [place] TYPE: Emergency COMPLAINT: - HIGH BP, DIZZYNESS DIAGNOSES: - Allergy status to other drugs, medicaments and biological substances - Other care home (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 - Essential (primary) hypertension 10/28/2019 00:00 [facility] [place] TYPE: Emergency [...] of corpus cavernosum and penis - Other tank terminal gauger (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 - Allergy status to other drugs, medicaments and biological substances 03/12/2019 02:19 [facility] [place] TYPE: Emergency COMPLAINT: - SEIZURE SYMPTOMS DIAGNOSES: - Personal history of transient ischemic attack (TIA), and cerebral infarction without residual deficits - Other care home (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 - Allergy status to other drugs, medicaments and biological substances - Epilepsy, unspecified, not intractable, without status epilepticus - Essential (primary) hypertension INPATIENT VISIT TRACKING (12 MO.) 12/07/2019 22:[address] [facility] [place] TYPE: Observation COMPLAINT: - DEHYDRATION5 DIAGNOSES: [...] Cough - Chronic pain syndrome - Other care home (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 - Allergy status to other drugs, medicaments and biological substances 11/29/2019 05:05 [facility] [place] TYPE: Oncology DIAGNOSES: - Neoplasm of unspecified behavior of bladder - Malignant neoplasm of right renal pelvis - Malignant (primary) neoplasm, unspecified - Unsteadiness on feet 04/06/2019 10:33 [facility] TYPE: Surgery DIAGNOSES: - Hydronephrosis with ureteral stricture, not elsewhere classified [email or web address]
== END 2020-01-29 21:08 | disposition home or self-care (01) ==
LOC: ED 19:58
DX: I10 Essential (primary) hypertension (principal); Z86.73 Personal history of transient ischemic attack (TIA), and cerebral infarction without residual deficits; Z87.891 Personal history of nicotine dependence; Z85.46 Personal history of malignant neoplasm of prostate; Z85.528 Personal history of other malignant neoplasm of kidney; Z88.8 Allergy status to other drugs, medicaments and biological substances; Z88.1 Allergy status to other antibiotic agents; Z79.899 Other long term (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
CPT/HCPCS: 99283

== ENCOUNTER 2020-07-20 18:14 | Emergency (ER) | payer MEDICARE, OTHER ==
[~2020-07-20] VITALS: Ht 177.8 cm; Wt 78.9 kg
--- OUTSIDE RECORDS SUMMARY | 2020-07-20 18:16 | XMS ---
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 Care History Medical/Surgical 12/11/2019 [facility] Patient seen in ED for post op concerns and was diagnosed with acute kidney injury to which he was admitted to [facility].\T\nbsp; Patient has 2:40 appointment with PCP Manuel Rivas.\T\nbsp; Informed Manuel that patient still in hospital. 10/30/2019 [facility] Patient scheduled to see Dr. Baker on 11/07/2019 04/14/2019 [facility] - PATIENT HAS AN APT WITH PCP ON 04/17/19 FOR FOLLOW UP TO ED VISIT. - Patient is currently established with [facility]. If patient is seen in the ED during business hours. Please contact CHWs at [facility]. Care Recommendation: If this patient has [...] COUNT (12 MO.) 1 Jayme Arias TOTAL 9 NOTE: Visits indicate total known visits. ED/UCC VISIT TRACKING (12 MO.) 07/20/2020 18:14 [facility] [place] TYPE: Emergency COMPLAINT: - FALL LACERATION ON HEAD 01/29/2020 19:59 [facility] [place] TYPE: Emergency COMPLAINT: - BLOOD PRESSURE PROBLEMS DIAGNOSES: - Allergy status to other drugs, medicaments and biological substances - Personal history of other malignant neoplasm of kidney - Allergy status to other antibiotic agents - Allergy status to other antibiotic agents - Essential (primary) hypertension - Personal history of malignant neoplasm of prostate - Personal history of transient ischemic attack (TIA), and cerebral infarction without residual deficits - Personal history of nicotine dependence - Other snf (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 - Allergy status to other drugs, medicaments and biological substances 01/24/2020 19:43 [facility] [place] TYPE: Emergency COMPLAINT: - HIGH BLOOD PRESSURE DIAGNOSES: - 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 - Allergy status to other drugs, medicaments and biological substances - Allergy status to other antibiotic agents - Essential (primary) hypertension - Allergy status to other antibiotic agents - Personal history of transient ischemic attack (TIA), and cerebral infarction without residual deficits - Personal history of other malignant neoplasm of kidney - Personal history of malignant neoplasm of prostate - Allergy status to other drugs, medicaments and biological substances 12/07/2019 22:17 [place] [place] TYPE: Emergency COMPLAINT: - POST OP PROBLEM 10/28/2019 16:38 [facility] [place] TYPE: Emergency COMPLAINT: - VOMITING, DIARRHEA DIAGNOSES: - Other snf (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 - Essential (primary) hypertension - Allergy status to other drugs, medicaments and biological substances - Essential (primary) hypertension 10/28/2019 10:29 [place] TYPE: Emergency COMPLAINT: - HIGH BP, DIZZYNESS DIAGNOSES: - Allergy status to other drugs, medicaments and biological substances - Other snf (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 - Essential (primary) hypertension 10/28/2019 00:00 [place] [place] TYPE: Emergency COMPLAINT: - HIGH BP, RECENT POST OP 10/24/2019 16:15 Jayme [facility] TYPE: Emergency COMPLAINT: - POSSIBLE KIDNEY BLEEDING - DIZZINESS AND GIDDINESS - HEMATURIA UNSPECIFIED DIAGNOSES: 0. Hematuria, unspecified 1. Hematuria, unspecified 4. Malignant neoplasm of unspecified ureter 10/23/2019 12:52 WARREN [place] TYPE: Emergency COMPLAINT: - BLOOD IN URINE DIAGNOSES: - Hematuria, unspecified INPATIENT VISIT TRACKING (12 MO.) 12/07/2019 22:18 WARREN [place] TYPE: Observation COMPLAINT: - DEHYDRATION5 DIAGNOSES: - Unspecified dementia without behavioral disturbance - Personal history of other malignant neoplasm of kidney - Acute kidney failure, unspecified - Acquired absence of kidney - Hypothyroidism, unspecified - Essential (primary) hypertension - Allergy status to other drugs, medicaments and biological substances - Contact with and (suspected) exposure to other viral communicable diseases - Benign prostatic hyperplasia without lower urinary tract symptoms - Hypo-osmolality and hyponatremia - Epilepsy, unspecified, not intractable, without status epilepticus - Urinary tract infection, site not specified - Cough - Chronic pain syndrome - Other snf (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 - Allergy status to other drugs, medicaments and biological substances 11/29/2019 05:05 Vin Mu[facility]oz [place] TYPE: Oncology DIAGNOSES: - Neoplasm of unspecified behavior of bladder - Malignant neoplasm of right renal pelvis - Malignant (primary) neoplasm, unspecified - Unsteadiness on feet [email or web address]
[2020-07-20] MEDS ORDERED: INDAPAMIDE1.25 MG PO (18:47)
[2020-07-20] MEDS ORDERED: SPIRONOLACTONE25 MG PO (18:47)
[2020-07-20] MEDS ORDERED: SPIRONOLACTONE50 MG PO (18:47)
[2020-07-20] MEDS ORDERED: HYDRALAZINE HCL50 MG PO (18:47)
[2020-07-20] MEDS ORDERED: DOCUSATE SODIU100 MG PO (18:47)
[2020-10-22] MEDS ORDERED: CEFDINIR300 MG PO (13:14)
[2020-10-22] MEDS ORDERED: OXYCODONE HCL5 MG PO (13:15)
== END 2020-07-20 20:51 | disposition home or self-care (01) ==
LOC: ED 18:14
PROC: 0HQ1XZZ Repair Face Skin, External Approach (ICD-10-PCS; principal; 2020-07-20)
DX: S01.81XA Laceration without foreign body of other part of head, initial encounter (principal); W01.10XA Fall on same level from slipping, tripping and stumbling with subsequent striking against unspecified object, initial encounter; I10 Essential (primary) hypertension; Z85.46 Personal history of malignant neoplasm of prostate; Z85.528 Personal history of other malignant neoplasm of kidney; Z87.891 Personal history of nicotine dependence; Z88.8 Allergy status to other drugs, medicaments and biological substances; Z88.1 Allergy status to other antibiotic agents; Z79.899 Other long term (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; Z79.891 Long term (current) use of opiate analgesic; Z23 Encounter for immunization
CPT/HCPCS: 12011; 70450; 99283-25

== ENCOUNTER 2020-10-07 06:00 | Day surgery (SDC) | payer MEDICARE, OTHER ==
[~2020-10-07] VITALS: Ht 177.8 cm; Wt 71.0 kg
[~2020-10-07 06:00] MED LIST changes: +DOCUSATE SODIU100 MG PO; +HYDRALAZINE HCL50 MG PO; +INDAPAMIDE1.25 MG PO; +SPIRONOLACTONE25 MG PO; +SPIRONOLACTONE50 MG PO
--- NOTE | 2020-10-07 09:13 | NUR ---
10/07/20 0913 Era Fallon 2488 PT ARRIVED TO PACU ON 10L VIA MASK, PT RESP EVEN AND UNLABORED. VSS. PT REACTIVE TO TACTILE STIMULI. 0859 O2 REMOVED. 0900 PT MORE AWAKE AND RN HELPS PT ROLL TO LEFT SIDE PER MD. EDUCATION GIVEN ON MITOMYCIN IN BLADDER. PT TALKING TO RN.
--- NOTE | 2020-10-07 09:53 | NUR ---
RECEIVED REPORT FROM SANDOVAL PEREZ. PATIENT WAS ALERT. PATIENT DENIES PAIN AND NAUSEA. PATIENT WAS LAYING ON HIS LEFT SIDE AND WAS TURNED TO HIS STOMACH AT 0940. CALL LIGHT WITHIN REACH.
--- NOTE | 2020-10-07 10:19 | NUR ---
[id number] DRAINED 500 ML FROM YANES. D/C YANES WITH CATH INTACT. DISCARDED YANES, GOWN, AND GLOVES IN YELLOW CHEMO PRECAUTION BIN. PROVIDED PATIENT WITH A DEPENDS. PATIENT STATES HE STILL HAS URGE TO URINATE. PATIENT HAS A SALINE LOCK. PATIENT DENIES PAIN. PATIENT IS SITTING UP IN BED DRINKING WATER AND EATING APPLESAUSE.
--- NOTE | 2020-10-07 10:51 | NUR ---
PATIENT SITTING UP IN BED. PATIENT IS TEARY EYED AND STUTTERING A LITTLE BIT WHEN TALKING. PATIENT IS ALERT. PATINET IS DRINKING WATER. PATINET DENIES PAIN AND NAUSEA. PATIENT HAS NO CONCENRS AT THIS TIME. CALL LIGHT WITHIN REACH.
--- NOTE | 2020-10-07 11:38 | NUR ---
PT ABLE TO VOID 100 MLS PINK URINE IN URINAL. PT STATES DEPENDS ARE WET "DOESN'T FEEL RIGHT TO PEE LAYING DOWN." THIS RN REMOVES SOILED DEPENDS AND PLACES NEW ONES. SECOND RN IN ROOM TO ASSIST REPOSITIONING PT HIGHER IN BED, PT GIVEN WARM BLANKETS WITH VERÓNICA HUGGER IN PLACE. CALL LIGHT WITHIN REACH.
--- NOTE | 2020-10-07 12:15 | NUR ---
PATIENT UP TO BATHROOM, STEADY ON FEET IN THE HALLS. PATIENT VOIDING WELL. NO COMPLAINTS OF PAIN. CALLED TO LET HER KNOW PATIENT READY TO GO HOME. LEFT MESSAGE ON VOICE MAIL. ASSISTED PATIENT WITH GETTING DRESSED. PATIENT APPEARS TO BE AT BASELINE, AAOX3. NO DRAINAGE NOTED FROM URETHRA.
--- NOTE | 2020-10-07 12:19 | NUR ---
PROVIDED PATIENT WITH DISCHARGE INSTRUCTIONS. PATIENT VERBALIZED UNDERSTANDING AND HAD NO FUTHER QUESTIONS. YOANA IS WAIING IN HIS ROOM FOR TO COME PICK HIM UP.
--- NOTE | 2020-10-10 16:19 | OR ---
[facility] [address] [place], [place] [address] Signed DATE OF OPERATION: 10/07/2020 SURGEON: Karla Reynoso MD PREOPERATIVE DIAGNOSES: 1. History of urothelial carcinoma of the right ureter, status post right nephro-ureterectomy. 2. Bladder cancer. 3. Prostate cancer. 4. Urine cytology positive for malignant cells. POSTOPERATIVE DIAGNOSES: 1. History of urothelial carcinoma of the right ureter, status post right nephro-ureterectomy. 2. Bladder cancer. 3. Prostate cancer. 4. Urine cytology positive for malignant cells. 5. No evidence of urothelial cell carcinoma within the left kidney or ureter. 6. A 1 cm bladder lesion, present near dome of the bladder. NAMES OF PROCEDURES: 1. Diagnostic cystoscopy with left ureteral washings and left retrograde pyelogram. 2. Transurethral resection of bladder tumor - small. 3. Intravesical instillation of mitomycin chemotherapy. ANESTHESIA: General. ESTIMATED BLOOD LOSS: Minimal. COMPLICATIONS: None. SPECIMENS: Three small pieces of tissue corresponding to the bladder lesion near the dome of the bladder. The bladder lesion was resected completely and sent to pathology in three separate specimens. DRAINS: Electronically Signed By: KARLA REYNOSO MD 10/10/20 1619 PATIENT NAME: PAWEL CANALES OPERATIVE REPORT DATE OF : 33 REPORT #: [id number] PHYSICIAN: KARLA REYNOSO MD PCP: CASIE,DI NAIL TECHNICIAN REPORT IS CONFIDENTIAL AND NOT TO BE RELEASED WITHOUT AUTHORIZATION [facility] [address] [place], [place] [address] Signed A 20-Egyptian two-way Whitaker catheter inserted into the patient's bladder. This is capped to keep the intravesical mitomycin within the bladder for a total of 80 minutes. INDICATIONS FOR PROCEDURE: Mr. Canales is a very pleasant 85-year-old gentleman who is well known to me. 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 He also has bladder tumors for which he has undergone transurethral resection in the past. Of note, he also has prostate cancer that is currently being managed by Dr. Peacock. He recently underwent a negative PET scan. He recently underwent diagnostic cystoscopy as part of his surveillance for his bladder cancer. Although, the cystoscopy was grossly negative, his cytology that was obtained on the day of the cystoscopy did reveal malignant cells. Based on this finding, I recommended to the patient's that he undergo cystoscopy under anesthesia with left retrograde pyelogram and left ureteral washing along with transurethral resection of any potential bladder tumors. He presents today to undergo the aforementioned procedure. OPERATIVE FINDINGS: On cystoscopy, there is no obvious evidence of overt bladder tumor. However on closer inspection, there was an area of erythema with a "carpet like" appearance consistent with what appeared to be tumor recurrence, likely carcinoma in situ. This area was resected in toto and place a specimen cup. The remaining area of resection as well as all other areas of erythema were transurethrally cauterized. There was only one obvious area of tumor recurrence overall. Left retrograde pyelogram revealed no evidence of any filling defects or calyceal dilation within the left renal pelvis or ureter. Left ureteral washings were also performed prior to the retrograde pyelogram. Once the solitary bladder lesion was successfully resected and cauterized, the bladder was irrigated. A 20-Egyptian two-way Whitaker catheter was inserted into the patient's bladder and this was filled with 40 mg in 20 mL of mitomycin chemotherapy. The bladder was filled with the mitomycin and then the catheter was then capped and secured to his abdomen. DESCRIPTION OF PROCEDURE: After informed consent was obtained, the patient was taken back to the operating room. He was transferred from the [facility] to the operating room table, where general anesthesia was induced. He was placed in the dorsal lithotomy position and his genitalia were prepped and draped in a standard sterile fashion. The patient's fossa navicularis was dilated from 20-Egyptian to 30-Egyptian without difficulty. I then inserted standard rigid Electronically Signed By: KARLA REYNOSO MD 10/10/20 1619 PATIENT NAME: PAWEL CANALES OPERATIVE REPORT DATE OF : 33 REPORT #: [id number] PHYSICIAN: KARLA REYNOSO MD PCP: DI JASON REPORT IS CONFIDENTIAL AND NOT TO BE RELEASED WITHOUT AUTHORIZATION [address] [address] Signed cystoscope through the patient's urethra and into his bladder under direct visualization. Panendoscopic views of bladder then obtained. Please see the above findings. Attention was turned to the left ureteral orifice. A whistle-tip catheter was advanced into the distal left ureter and ureteral washings were obtained. The whistle-tip catheter was then removed and replaced with a cone-tipped catheter. A left retrograde pyelogram was then performed. Please see above findings. The patient's bladder was then completely drained and then 60 mL of lube was injected into the patient's urethra. This was followed by the visual obturator with a 26-Egyptian sheath and then with the resectoscope. The 1.5 cm area of concern was located near the dome of the bladder. This area was resected using a 24-Egyptian loop with a bipolar resectoscope without difficulty. The area was then thoroughly cauterized. I then looked throughout the rest of the bladder and cauterized any areas that appeared to be associated with previous resection. I did not see any obvious evidence of recurrence other than the one area near the dome of the bladder and this was completely resected as stated above. The patient's bladder was then thoroughly irrigated and the resectoscope was removed. A 20-Egyptian two-way Whitaker catheter was inserted into the patient's bladder and the bladder was allowed to completely drain. I then instilled 40 mg in 20 mL of mitomycin into the patient's bladder. The catheter was capped and then secured to his abdomen. The mitomycin will remain in the patient's bladder for a total of 80 minutes and he will be flipped every 20 minutes for proper treatment. The procedure was then terminated. The patient tolerated the procedure well without any complication. He will now be transferred to the postanesthesia care unit in stable condition. Disposition: I discussed the details of today's procedure with the patient's and answered all of her questions. I notified her that overall things look very good today except there was one 1.5 cm area of tumor recurrence that was completely resected and cauterized. He will now continue with his intravesical mitomycin treatment in the PACU. He was sent home today with oxycodone 5 mg one tab p.o. q.6h 8 hours p.r.n. pain dispense #15 along with cefdinir 300 mg one tablet p.o. b.i.d. for a total of 7 days. He will be scheduled to return to clinic in around 2-3 months at which time he will undergo UA check and we will discuss his pathology results. MD ALBA Keene/RIYA /[id number] Electronically Signed By: KARLA REYNOSO MD 10/10/20 1619 PATIENT NAME: PAWEL CANALES OPERATIVE REPORT DATE OF : 33 REPORT #: [id number] PHYSICIAN: KARLA REYNOSO MD PCP: DI JASON REPORT IS CONFIDENTIAL AND NOT TO BE RELEASED WITHOUT AUTHORIZATION [facility] [address] [place] [address] [place] [address] Signed Copies: ~ Electronically Signed By: KARLA REYNOSO MD 10/10/20 1619 PATIENT NAME: PAWEL CANALES OPERATIVE REPORT DATE OF : 33 REPORT #: [id number] PHYSICIAN: KARLA REYNOSO MD PCP: DI JASON REPORT IS CONFIDENTIAL AND NOT TO BE RELEASED WITHOUT AUTHORIZATION
--- NOTE | 2020-10-11 15:20 | PATH ---
[facility] [address] [place], [place] [address] Signed SPECIMEN(S): A BLADDER LESION, DOME SPECIMEN SOURCE: A. BLADDER LESION, DOME CLINICAL HISTORY: Malignant neoplasm of right ureter. Malignant neoplasm of overlapping sites of bladder. FINAL PATHOLOGIC DIAGNOSIS: Bladder lesion, dome, biopsy: - Non-invasive low-grade papillary urothelial carcinoma. - Muscularis propria (detrusor muscle) is -----present and is not involved by the carcinoma. - Lymphovascular invasion: Not identified. COMMENT: As part of [facility]' Quality Improvement Program, this case was reviewed by another member of our pathology staff. A diagnostic alert was initiated by Dr. Maynard on 10/11/20 (Dr. Negrete to be called by [facility]'s Client Services Department). NAL:cml:C1NR MICROSCOPIC EXAMINATION: Histologic sections of all submitted blocks are examined by light microscopy. Sections demonstrate thickened urothelium with early papillary formation, lined by cells with low-grade cytologic atypia. Immunohistochemical stains (with appropriately staining controls) were performed. CK20 highlights the umbrella cells of the urothelium only and p53 is not overexpressed, staining patterns arguing against high-grade carcinoma. These findings, together with the gross examination, support the pathologic diagnosis. GROSS DESCRIPTION: The specimen, labeled "JN, bladder lesion, dome," is received in formalin and consists of three pink-mcfarland, soft tissue fragments that range in size from 0.4-0.6 cm in greatest dimension. Specimen is entirely submitted in cassette (A1). JS (under the direct supervision of a pathologist) The Gross Description was prepared using a voice recognition system. The report was reviewed for accuracy; however, sound-alike word errors, addition and/or PATIENT NAME: PAWEL HERRERA PATHOLOGY DATE OF : 33 REPORT #: [id number] PHYSICIAN: HOLLIS PATHOLOGY PCP: DI JASON REPORT IS CONFIDENTIAL AND NOT TO BE RELEASED WITHOUT AUTHORIZATION [facility] [address] [place], [place] [address] Signed deletions may occur. If there is any question about this report, please contact Client Services. ADDITIONAL NOTES: Immunohistochemical and/or in situ hybridization studies were performed on this case with the appropriate positive controls that react as expected. This test was developed and its performance characteristics determined by [facility]. It has not been cleared or approved by the U.S. Food and Drug Administration. The FDA has determined that such clearance or approval is not necessary. This test is used for clinical purposes. It should not be regarded as investigational or for research. [facility] is certified under the Clinical Laboratory Improvement Amendments of 1988 (CLIA) as qualified to perform high complexity clinical laboratory testing. This assay has not been validated for specimens that have been decalcified. PERFORMING LABORATORY: The technical component was performed by [facility], [address] [place] [address] (Founder And Chief Executive Officer: Janis Restrepo MD; CLIA# [id number]). [facility], [address] [address] (CLIA# [id number]). Diagnostician: Debbie Maynard MD Pathologist Electronically Signed 10/11/2020 Copies: ~ PATIENT NAME: PAWEL HERRERA DONNY PATHOLOGY DATE OF : 33 REPORT #: [id number] PHYSICIAN: HOLLIS PATHOLOGY PCP: DI JASON REPORT IS CONFIDENTIAL AND NOT TO BE RELEASED WITHOUT AUTHORIZATION
[2020-10-22] MEDS ORDERED: CEFDINIR300 MG PO (13:14)
[2020-10-22] MEDS ORDERED: OXYCODONE HCL5 MG PO (13:15)
== END 2020-10-07 13:35 | disposition home or self-care (01) ==
LOC: DS 06:00
PROVIDERS: ATTEND Urology
PROC: 0TBB8ZX Excision of Bladder, Via Natural or Artificial Opening Endoscopic, Diagnostic (ICD-10-PCS; principal; 2020-10-07 06:45)
PROC: 3E0M705 Introduction of Other Antineoplastic into Peritoneal Cavity, Via Natural or Artificial Opening (ICD-10-PCS; 2020-10-07 06:45)
DX: C67.8 Malignant neoplasm of overlapping sites of bladder (principal); C61 Malignant neoplasm of prostate; C66.1 Malignant neoplasm of right ureter; E03.9 Hypothyroidism, unspecified; E78.5 Hyperlipidemia, unspecified; I12.9 Hypertensive chronic kidney disease with stage 1 through stage 4 chronic kidney disease, or unspecified chronic kidney disease; N18.4 Chronic kidney disease, stage 4 (severe); Z87.891 Personal history of nicotine dependence
CPT/HCPCS: 00912; 74420; 88305; 88341; 88342; C1769; J0690; J1100; J1885; J2405; J2704; J2765; J3010; J7121; J9280; Q9967

== ENCOUNTER 2020-10-10 18:34 | Emergency (ER) | payer MEDICARE, OTHER ==
[~2020-10-10] VITALS: Ht 177.8 cm; Wt 70.8 kg
--- OUTSIDE RECORDS SUMMARY | 2020-10-10 18:36 | XMS ---
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 Care History Medical/Surgical 12/11/2019 [facility] Patient seen in ED for post op concerns and was diagnosed with acute kidney injury to which he was admitted to [facility].\T\nbsp; Patient has 2:40 appointment with PCP Manuel Rivas.\T\nbsp; Informed Manuel that patient still in hospital. 10/30/2019 [facility] Patient scheduled to see Dr. Baker on 11/07/2019 04/14/2019 [facility] - PATIENT HAS AN APT WITH PCP ON 04/17/19 FOR FOLLOW UP TO ED VISIT. - Patient is currently established with [facility]. If patient is seen in the ED during business hours. Please contact CHWs at [facility]. Care Recommendation: If this patient has [...] COUNT (12 MO.) 1 Jayme Miranda 9 WARREN Arias TOTAL 10 NOTE: Visits indicate total known visits. 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 - Laceration without foreign body of other part of head, initial encounter - Fall on same level from slipping, tripping and stumbling with subsequent striking against unspecified object, initial encounter - Essential (primary) hypertension 01/29/2020 19:59 [place] [place] TYPE: Emergency [...] Personal history of nicotine dependence - 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 (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 - Allergy status to other drugs, medicaments and biological substances 01/24/2020 19:43 [facility] [place] TYPE: Emergency COMPLAINT: - HIGH BLOOD PRESSURE DIAGNOSES: - 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 (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 - Allergy status to [...] COMPLAINT: - VOMITING, DIARRHEA DIAGNOSES: - Other m[facility]p (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 - Essential (primary) hypertension - Allergy status to other drugs, medicaments and biological substances - Essential (primary) hypertension 10/28/2019 10:29 [facility] [place] TYPE: Emergency COMPLAINT: - HIGH BP, DIZZYNESS DIAGNOSES: - Allergy status to other drugs, medicaments and biological substances - 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
[2020-10-22] MEDS ORDERED: CEFDINIR300 MG PO (13:14)
[2020-10-22] MEDS ORDERED: OXYCODONE HCL5 MG PO (13:15)
== END 2020-10-11 00:27 | disposition home or self-care (01) ==
LOC: ED 18:34
DX: K62.5 Hemorrhage of anus and rectum (principal); I10 Essential (primary) hypertension; Z87.891 Personal history of nicotine dependence; Z88.1 Allergy status to other antibiotic agents; Z88.8 Allergy status to other drugs, medicaments and biological substances; Z79.899 Other long term (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
CPT/HCPCS: 80053; 85025; 85027; 85610; 85730; 86850; 86900; 86901; 99283

== ENCOUNTER 2020-10-23 06:25 | Day surgery (SDC) | payer MEDICARE, OTHER ==
[~2020-10-23] VITALS: Ht 177.8 cm; Wt 76.8 kg
[~2020-10-23 06:25] MED LIST changes: +CEFDINIR300 MG PO
--- NOTE | 2020-10-23 08:34 | NUR ---
10/23/20 0834 Era Fallon 0881 PT ARRIVED TO PACU ON 2L VIA NC, PT ASLEEP AND RESP EVEN AND UNLABORED.
--- NOTE | 2020-10-24 05:41 | OR ---
[facility] [address] [place], [place] [address] Signed DATE OF OPERATION: 10/23/2020 SURGEON: Leo Stevens MD PREOPERATIVE DIAGNOSES: 1. Constipation, on oxycodone. 2. Increased uptake in mid-right colon on recent PET scan. 3. Colonoscopies in 2005, 2007, 2009, 2014 with hyperplastic polyps, internal hemorrhoids, and tubular adenomas. POSTOPERATIVE DIAGNOSES: 1. Cecal polyps x2 (mass). 2. Proximal right colon polyps x3. 3. Nearly circumferential mass mid right colon. 4. Proximal transverse colon with biopsy and tattoo. 5. Polyp at 80 cm. 6. Polyp at 22 cm. 7. Polyp at 15 cm. 8. Moderate internal hemorrhoids. PROCEDURE: Colonoscopy with hot biopsy intact to the proximal transverse colon polyp. ESTIMATED BLOOD LOSS: None. 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 She has a tremendous amount of clinical experience. Pawel had been through quite a few surgeries this last few years. He had the right kidney and his right ureter removed for cancer. He underwent TURP of his prostate. He has been on oxycodone intermittently and therefore having constipation. He has been using docusate, MiraLAX with good results. He also uses prunes. He had a followup PET scan with his medical oncologist. There was uptake in the ascending colon. No obvious mass on the CT scan portion. We know in 2005, he had hyperplastic polyps and internal hemorrhoids. In 2007, he had a tubular adenoma removed along with hyperplastic polyps and internal hemorrhoids. In 2009, he had hyperplastic polyps and internal hemorrhoids again. Colonoscopy in 2014, then showed hyperplastic polyps and some internal hemorrhoids. At that time, we felt he would probably not need any more colonoscopies. He generally will do well with Versed and fentanyl, but he is now of advanced age. He has a Electronically Signed By: LEO STEVENS MD 10/24/20 0541 PATIENT NAME: PAWEL HERRERA OPERATIVE REPORT DATE OF : 33 REPORT #: [id number] PHYSICIAN: LEO STEVENS MD PCP: DI JASON REPORT IS CONFIDENTIAL AND NOT TO BE RELEASED WITHOUT AUTHORIZATION [facility] [address] [place] [address] Signed [id number] functional status. He is also showing signs of dementia. I had a long discussion with Pawel and his in the office. They wanted to proceed with colonoscopy. They felt that if there was a tumor, they would consider a right colectomy. I gave them a pamphlet on colonoscopy. They are aware of that test. There is risk including, but not limited to gas bloating, crampy abdominal pain, bleeding, perforation requiring surgery, and missed diagnosis. Also because of his advanced age and poor functional status, it was decided we would need monitored anesthesia care with infusion of propofol. They had expressed understanding and wished to proceed. PROCEDURE NOTE: Pawel was taken into our endoscopy suite and placed in the left lateral decubitus position. He was maintained on propofol per our nurse finance business partner. He did need airway control during the procedure. A digital rectal exam was performed and this was unremarkable. The adult colonoscope was introduced and advanced under direct visualization of the camera. It took some extra propofol and abdominal compression to move the scope down the right colon into the cecum itself. His prep was good. We could easily see the appendiceal orifice and the ileocecal valve. The above-mentioned polyps were biopsied and photo documented. He clearly has a nearly circumferential mass in the mid right colon. Obviously, it is quite concerning for cancer. He also has a large polyp and/or mass in the cecum, which may be a cancer as well. As we came through the proximal transverse colon, we found a sessile polyp that would be included in a right colectomy. We went ahead and placed a tattoo, so it could be located at a later date. We also took a biopsy. We took out some additional polyps at 80 cm, 22 cm, and 15 cm. Once again, he has moderate internal hemorrhoids. After this, the sedation was discontinued and Pawel was taken into the recovery room in stable condition. Leo Stevens MD ALB/MODL /[id number] cc: MD Di Wolfe FNP Robert C Quackenbush, MD Electronically Signed By: LEO STEVENS MD 10/24/20 0541 PATIENT NAME: PAWEL HERRERA OPERATIVE REPORT DATE OF : 33 REPORT #: [id number] PHYSICIAN: LEO STEVENS MD PCP: DI JASON REPORT IS CONFIDENTIAL AND NOT TO BE RELEASED WITHOUT AUTHORIZATION [place] [address] Signed Chart Filed Incomplete Copies: LEO STEVENS MD, LACEY FNP QUACKENBUSH, ROBERT C MD CHART FILED INCOMPLETE ~ Electronically Signed By: LEO STEVENS MD 10/24/20 0541 PATIENT NAME: PAWEL HERRERA OPERATIVE REPORT DATE OF : 33 REPORT #: [id number] PHYSICIAN: LEO STEVENS MD PCP: DI JASON REPORT IS CONFIDENTIAL AND NOT TO BE RELEASED WITHOUT AUTHORIZATION
--- NOTE | 2020-10-31 15:07 | PATH ---
[facility] [address] [place], [place] [address] Signed THIS IS AN ADDENDUM REPORT SPECIMEN(S): A CECUM POLYP SPECIMEN(S): B CECAL MASS SPECIMEN(S): C PROXIMAL RIGHT COLON BIOPSY SPECIMEN(S): D MID RIGHT COLON BIOPSY SPECIMEN(S): E PROXIMAL TRANSVERSE BIOPSY SPECIMEN(S): F POLYP AT 80 CM SPECIMEN(S): G POLYP AT 22 CM SPECIMEN(S): H POLYP AT 15 CM SPECIMEN SOURCE: A. CECUM POLYP B. CECAL MASS C. PROXIMAL RIGHT COLON BIOPSY D. MID RIGHT COLON BIOPSY E. PROXIMAL TRANSVERSE BIOPSY F. POLYP AT 80 CM G. POLYP AT 22 CM H. POLYP AT 15 CM CLINICAL HISTORY: Rectal bleeding; history of colon polyps. Postop Diagnosis: Multiple colon polyps, internal hemorrhoids. MICROSCOPIC DESCRIPTION: Histologic sections of all submitted blocks are examined by light microscopy. These findings, together with the gross examination, support the pathologic diagnosis. FINAL PATHOLOGIC DIAGNOSIS: A. Colon, cecum, polyp, polypectomy: - Fragments of tubular adenoma. - Negative for high-grade dysplasia or malignancy. B. Colon, cecum, mass, biopsy: - Fragments of sessile serrated lesion(s). - Negative for dysplasia or malignancy. - See comment. C. Colon, proximal right, biopsy: - Sessile serrated lesion. - Negative for dysplasia or malignancy. D. Colon, mid right, biopsy: PATIENT NAME: PAWEL HERRERA DONNY PATHOLOGY DATE OF : 33 REPORT #: [id number] PHYSICIAN: HOLLIS PATHOLOGY PCP: DI JASON REPORT IS CONFIDENTIAL AND NOT TO BE RELEASED WITHOUT AUTHORIZATION [facility] [address] [place], [place] [address] Signed - Moderately differentiated adenocarcinoma. - Hyperplastic polyp. - See comment. E. Colon, proximal transverse, biopsy: - Sessile serrated lesion. - Negative for dysplasia or malignancy. F. Colon, polyp at 80 cm, polypectomy: - Hyperplastic polyp. - Negative for dysplasia or malignancy. G. Colon, polyp at 22 cm, polypectomy: - Colonic mucosa with mucosal edema. - Negative for dysplasia or malignancy. H. Colon, polyp at 15 cm, polypectomy: - Hyperplastic polyp. - Negative for dysplasia or malignancy. COMMENT: As part of [facility]' Quality Improvement Program, parts B and D of this case were reviewed by another member of our pathology staff. Regarding specimen B: The colonoscopic impression of a large polyp and/or mass in the cecum is noted. Multiple additional levels were examined and no carcinoma or dysplasia is identified in the biopsied tissue. Regarding specimen D: The colonocsopic impression of a nearly circumferential mass in the mid right colon is noted. Sections show a moderately differentiated carcinoma with a small fused acinar growth pattern. Immunohistochemical stains (with appropriately staining controls) demonstrates the tumor is positive for CDX2, but negative for CK7, CK20, and PSA. Overall, the features are most consistent with colonic adenocarcinoma. Mismatch repair (MMR) testing by IHC has been ordered and will be reported in an addendum. A diagnostic alert was initiated by Dr. Maynard on 10/25/20 (Dr. Chen to be called by [facility]'s Client Services department). NAL:cml:C1NR GROSS DESCRIPTION: Eight specimens are received in eight containers, labeled "JN." A. The specimen, labeled "JN, cecum polyp," is received in formalin and consists of four mcfarland soft tissue fragment(s) that measure 0.1-0.2 cm in greatest dimension. The specimen is entirely submitted PATIENT NAME: PAWEL HERRERA PATHOLOGY DATE OF : 33 REPORT #: [id number] PHYSICIAN: HOLLIS ARELLANO PCP: DI JASON REPORT IS CONFIDENTIAL AND NOT TO BE RELEASED WITHOUT AUTHORIZATION [facility] [address] [place], [place] [address] Signed in cassette (A1). B. The specimen, labeled "JN, cecum mass biopsy," is received in formalin and consists of two mcfarland soft tissue fragment(s) that measure 0.1-0.2 cm in greatest dimension. The specimen is entirely submitted in cassette (B1). C. The specimen, labeled "JM, proximal right colon biopsy," is received in formalin and consists of one mcfarland soft tissue fragment that measures 0.2 cm in greatest dimension. The specimen is entirely submitted in cassette (C1). D. The specimen, labeled "JM, mid right colon biopsy," is received in formalin and consists of two mcfarland soft tissue fragment(s) that measure 0.1-0.2 cm in greatest dimension. The specimen is entirely submitted in cassette (D1). E. The specimen, labeled "JM, proximal transverse colon biopsy," is received in formalin and consists of one mcfarland soft tissue fragment that measures 0.2 cm in greatest dimension. The specimen is entirely submitted in cassette (E1). F. The specimen, labeled "JM, colon polyp at 80 cm," is received in formalin and consists of one mcfarland soft tissue fragment that measures 0.2 cm in greatest dimension. The specimen is entirely submitted in cassette (F1). G. The specimen, labeled "JM, colon polyp at 22 cm," is received in formalin and consists of one mcfarland soft tissue fragment that measures 0.2 cm in greatest dimension. The specimen is entirely submitted in cassette (G1). H. The specimen, labeled "JM, colon polyp at 15 cm," is received in formalin and consists of one mcfarland soft tissue fragment that measures 0.2 cm in greatest dimension. The specimen is entirely submitted in cassette (H1). JS (under the direct supervision of a pathologist) The Gross Description was prepared using a voice recognition system. The report was reviewed for accuracy; however, sound-alike word errors, addition and/or deletions may occur. If there is any question about this report, please contact Client Services. PERFORMING LABORATORY: The technical component was performed by [facility], [address] [place] [address] (Nursing Consultant: Janis Restrepo MD; CLIA# [id number]). Professional interpretation was performed by [facility], [facility], [address] [place] [address], PATIENT NAME: PAWEL HERRERA PATHOLOGY DATE OF : 33 REPORT #: [id number] PHYSICIAN: HOLLIS ARELLANO PCP: DI JASON REPORT IS CONFIDENTIAL AND NOT TO BE RELEASED WITHOUT AUTHORIZATION [facility] [address] [place], [place] [address] [facility] [address] (CLIA# [id number]). COMMENT: Tumor cells show loss of nuclear expression for both MLH1 and PMS2, suggestive of a mutation or promoter methylation of the MLH1 gene. Testing for methylation of the MLH1 promoter and/or mutation of BRAF is indicated. The presence of a BRAF V600E mutation and/or MLH1 methylation would suggest sporadic colorectal carcinoma. Absence of both MLH1 methylation and BRAF V600E mutation would suggest Razo syndrome (hereditary non-polyposis colorectal carcinoma syndrome). Clinical correlation with appropriate genetic counseling is recommended to assess the need for further testing in this patient. NAL:cml ADDITIONAL NOTES: Immunohistochemical and/or in situ hybridization studies were performed on this case with the appropriate positive controls that react as expected. This test was developed and its performance characteristics determined by [facility]. It has not been cleared or approved by the U.S. Food and Drug Administration. The FDA has determined that such clearance or approval is not necessary. This test is used for clinical purposes. It should not be regarded as investigational or for research. [facility] is certified under the Clinical Laboratory Improvement Amendments of 1988 (CLIA) as qualified to perform high complexity clinical laboratory testing. REASON FOR ADDENDUM: To add results of additional testing. ADDENDUM PATHOLOGIC DIAGNOSIS: D. Colon mid right, moderately differentiated adenocarcinoma, microsatellite instability testing by IHC: - MLH1: Loss of nuclear expression. - MSH2: Intact nuclear expression. - MSH6: Intact nuclear expression. - PMS2: Loss of nuclear expression. INTERPRETATION: Suggestive of MLH1 mutation. ADDENDUM MICROSCOPIC EXAMINATION: A panel of four antibodies is selected which will detect 95% of microsatellite unstable carcinomas. Testing is performed at the request of Debbie Maynard M.D. PATIENT NAME: PAWEL HERRERA PATHOLOGY DATE OF : 33 REPORT #: [id number] PHYSICIAN: HOLLIS ARELLANO PCP: DI JASON REPORT IS CONFIDENTIAL AND NOT TO BE RELEASED WITHOUT AUTHORIZATION [facility] [address] [place] [address] Signed Block: D1. Recut HE slide is prepared from the block. The presence of neoplastic glands and non-neoplastic internal control glands or stroma is confirmed. Internal control cells for MLH1, MSH2, PMS2 and MSH6 are positive. Neoplastic gland cells show the following: - MLH1: Negative. - MSH2: Positive. - MSH6: Positive. - PMS2: Negative. NAL:cml Professional interpretation was performed by [facility], [address] [place] [address] (CLIA# [id number]). [facility] [place] [facility] [place] Diagnostician: Debbie Maynard MD Pathologist Electronically Signed 10/31/2020 Copies: ~ PATIENT NAME: PAWEL HERRERA PATHOLOGY DATE OF : 33 REPORT #: [id number] PHYSICIAN: HOLLIS ARELLANO PCP: DI JASON REPORT IS CONFIDENTIAL AND NOT TO BE RELEASED WITHOUT AUTHORIZATION
== END 2020-10-23 09:29 | disposition home or self-care (01) ==
LOC: DS 06:25 → OPS 06:25 → DS 11-08 06:45 → OPS 11-08 06:45
PROVIDERS: ATTEND Colon & Rectal Surgery
PROC: 0DBL8ZX Excision of Transverse Colon, Via Natural or Artificial Opening Endoscopic, Diagnostic (ICD-10-PCS; 2020-10-23)
PROC: 3E0H8KZ Introduction of Other Diagnostic Substance into Lower GI, Via Natural or Artificial Opening Endoscopic (ICD-10-PCS; 2020-10-23)
PROC: 0DBF8ZX Excision of Right Large Intestine, Via Natural or Artificial Opening Endoscopic, Diagnostic (ICD-10-PCS; 2020-10-23)
PROC: 0DBH8ZX Excision of Cecum, Via Natural or Artificial Opening Endoscopic, Diagnostic (ICD-10-PCS; principal; 2020-10-23 06:45)
DX: D12.0 Benign neoplasm of cecum (principal); D12.3 Benign neoplasm of transverse colon; K64.0 First degree hemorrhoids; I13.0 Hypertensive heart and chronic kidney disease with heart failure and stage 1 through stage 4 chronic kidney disease, or unspecified chronic kidney disease; N18.4 Chronic kidney disease, stage 4 (severe); I50.9 Heart failure, unspecified; E03.9 Hypothyroidism, unspecified; M19.90 Unspecified osteoarthritis, unspecified site; E78.5 Hyperlipidemia, unspecified; G40.909 Epilepsy, unspecified, not intractable, without status epilepticus; I69.319 Unspecified symptoms and signs involving cognitive functions following cerebral infarction; K21.9 Gastro-esophageal reflux disease without esophagitis; Z85.54 Personal history of malignant neoplasm of ureter; Z85.46 Personal history of malignant neoplasm of prostate; Z87.891 Personal history of nicotine dependence; Z88.1 Allergy status to other antibiotic agents; Z88.8 Allergy status to other drugs, medicaments and biological substances; Z87.19 Personal history of other diseases of the digestive system; Z85.51 Personal history of malignant neoplasm of bladder; Z85.53 Personal history of malignant neoplasm of renal pelvis; Z85.828 Personal history of other malignant neoplasm of skin; Z87.81 Personal history of (healed) traumatic fracture; Z90.5 Acquired absence of kidney; Z90.6 Acquired absence of other parts of urinary tract
CPT/HCPCS: 88305; 88341; J7121

== ENCOUNTER 2021-03-15 13:14 | Inpatient (IN) | payer MEDICARE ==
[~2021-03-15] VITALS: Ht 170.2 cm; Wt 69.8 kg
--- OUTSIDE RECORDS SUMMARY | 2021-03-15 13:16 | XMS ---
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 Care History Medical/Surgical 12/11/2019 [facility] Patient seen in ED for post op concerns and was diagnosed with acute kidney injury to which he was admitted to [facility].\T\nbsp; Patient has 2:40 appointment with PCP Manuel Rivas.\T\nbsp; Informed Manuel that patient still in hospital. 10/30/2019 [facility] Patient scheduled to see Dr. Baker on 11/07/2019 04/14/2019 [facility] - PATIENT HAS AN APT WITH PCP ON 04/17/19 FOR FOLLOW UP TO ED VISIT. - Patient is currently established with [facility]. If patient is seen in the ED during business hours. Please contact [facility] at [facility]. Care Recommendation: If this patient has had [...] providing care. E.D. VISIT COUNT (12 MO.) [address] [facility] TOTAL 3 NOTE: Visits indicate total known visits. ED/C VISIT TRACKING (12 MO.) 03/15/2021 13:15 [facility] TYPE: Emergency COMPLAINT: - POSS STROKE 10/10/2020 18:35 [facility] TYPE: Emergency COMPLAINT: - RECTAL BLEEDING DIAGNOSES: - Other shelter (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 - Allergy status to other antibiotic agents - Essential (primary) hypertension - Personal history of nicotine dependence - Hemorrhage of anus and rectum - Allergy status to other drugs, medicaments and biological substances 07/20/2020 18:14 [facility] TYPE: Emergency COMPLAINT: - FALL LACERATION ON HEAD DIAGNOSES: - Encounter for immunization - Personal history of other malignant neoplasm of kidney - Allergy status to other drugs, medicaments and biological substances - Personal history of malignant neoplasm of prostate - Allergy status to other antibiotic agents - Personal history of nicotine dependence - 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
[2021-03-15] MEDS ORDERED: NIFEDIPINE ER60 M1 PO (13:49)
[2021-03-15] MEDS ORDERED: LATANOPROST2.5 ML OU (13:50)
[2021-03-15] MEDS ORDERED: HEARTBURN PREVE20 MG PO (13:52)
[2021-03-15] MEDS ORDERED: MIRALAX17 GM PO (13:54)
--- NOTE | 2021-03-15 18:19 | NUR ---
PT ADMITTED FROM ER, ARRIVED TO UNIT ON ROOM AIR, PLACED ON TELE #1, AT BEDSIDE, PT ALERT AND ORIENTATED X4, LR @ 100, DENIES ANY PAIN AT THE MOMENT, VSS, PT CONCERENED ABOUT HOME MEDICATION VALPORIC ACID, DR MCCONNELL NOTIFIED OK TO RESTART HOME MEDS. DINNER PROVIDED, NO OTHER NEEDS AT THE MOMENT
--- NOTE | 2021-03-15 21:00 | NUR ---
REPORT RECEIVED FROM DAYSMSFT RN AND PT. CARE RESUMED. PT. IS ALERT AND ORIENTED TO ALL. HE IS SLOW TO RESPOND AT TIMES. NO NEURO DEFICITS NOTED DURING NEURO ASSESSMENT. SCAB PRESENT ON R. OUTER FOOT AND BRUISES SCATTERED ON ARMS. LUNGS DIM. IN BASES AND HE IS ON RA. PT. SWALLOWS WITHOUT COUGHING OR DIFFICULTY. HE DENIES PAIN AT THIS TIME. AT BEDSIDE. TELE PADS REPLACED. DISCUSSED MEDS, SAFETY AND POC. LEFT RESTING WITH ALARM ON AND CALL LIGHT IN REACH.
--- NOTE | 2021-03-15 21:27 | NUR ---
Medications reconciled using pharmacy records and interview with
--- NOTE | 2021-03-15 22:52 | NUR ---
IN ROOM TO ASSIST PT TO STAND AND USE URNIAL. EMPITED 200MLS OF URINE. PT IS NOW BACK IN BED AND DENIES FURTHER NEEDS. CALL LIGHT IS CLOSE AND BED ALARM IS ON.
--- NOTE | 2021-03-16 00:42 | NUR ---
assisted pt up to void with urinal at bedside, pt tolerates standing well, back to bed, alarm in set
--- NOTE | 2021-03-16 00:45 | NUR ---
PT. USED CALL LIGHT APPROPRIATELY FOR ASSISTANCE WITH VOIDING. ASSISTED TO EOB AND PHYSICIAN NEONATOLOGY ASSISTED HIM WITH VOIDING.
--- NOTE | 2021-03-16 02:25 | NUR ---
RECEIVED REPORT FROM CHRIS PATEL. ROUNDED ON pt. RESTING IN BED WITH EYES CLOSED, RESPIRATIONS REGULAR AND UNLABORED, RATE = 12. CALL LIGHT WITHIN REACH.
--- NOTE | 2021-03-16 04:27 | NUR ---
CALL LIGHT ON. SQUASH CENTRE MANAGER TO ROOM TO ASSIST pt WITH URINAL. ASSESSMENT DONE, STERILE PRODUCTS PROCESSOR EQUAL, NO DEFICT NOTED. DENIED PAIN. NO REQUESTS. CALL LIGHT WITHIN REACH.
--- NOTE | 2021-03-16 07:30 | NUR ---
REPORT RECEIVED FROM CHRIS OBREGON. PT RESTING IN BED ON BACK WITH HEAD OF BED ELEVATED TO 30 DEGREES. PT DENIES PAIN AND NAUSEA. TELEMETRY MONITORING SHOWS SINUS BRADYCADIA WIHT HEART RATE OF 56. PT DENIES ADDITIONAL REQUESTS OR COMPLAINTS. CALL LIGHT WITHIN REACH. BED RAILS UP.
--- NOTE | 2021-03-16 07:57 | NUR ---
MORNING ASSESSMENT AND MEDICATION DUE. THIS RN TO ROOM. PT RESTING IN BED, ALERT AND OREINTED. PT DENIES PAIN AND NAUSEA. IV ASSESSED, WNL, NO S/S OF PHLEBITIS NOTED. PT ORIENTED TO ALL. STRENGTH EQUAL BILATERALLY AND PT REPORTS HE FEELS STRENGTH IS "NORMAL" FOR HIM. NIH SCORE OF 0. PT ABLE TO EXPRESS NEEDS, NO SLURRED SPEACH NOTED. PT OCCATIONALLY HAS TROUBLE FINDING WORDS, FOR EXAMPLE PT TALKS ABOUT HAVING HIS KIDNEY TAKEN OUT BUT CANNOT REMEMBER THE WORD FOR KIDNEY. PT OTHERWISE INTERACTING APPROPRITALY. PT ABLE TO GET SELF OUT OF BED. STANDS WITH ONE PERSON ASSIST AND TAKES 2-3 STEPS TO CHAIR. GRABS FURNATURE TO STEADY HIMSELF. PT USES URINAL WHILE STANDING WITH MINIMAL ASSIST. VOIDS 125ML CLEAR YELLOW URINE. UPPER LOBES OF LUNGS CLEAR TO ASCULTATION. CRACKELS NOTED IN LOWER LOBES. PT DENEIS COUGH. SINUS BRADYCARDIA CONTINUES ON TELEMETRY MONTIORING WITH HEART RATES 50-60'S. MEDICATIONS GIVEN. PT ANTICIPATING BREAKFAST. CALL LIGHT WITHIN REACH. ROOM NEAR NURSES STATION. NO ADDITIONAL REQUESTS OR COMPLAINTS.
--- NOTE | 2021-03-16 08:48 | NUR ---
PT AWAKE IN CHAIR, THEN SBA TO BATHROOM. PT DOES NOT FOLLOW VERBAL CUES WELL. CHAIR ALARM PLACED AND ON. CALL LIGHT IN REACH. PT AWAKE AND CHATTING ON THE PHONE. NO FURTHER NEEDS AT THIS TIME
--- NOTE | 2021-03-16 09:32 | NUR ---
THIS RN TO ROOM TO CHECK ON PT. PT UP TO CHAIR, WORKING WITH PHYSICAL THERAPY. PT DENIES PAIN AND NAUSEA. NO ADDITIONAL REQUESTS OR COMPLAINTS. CALL LIGHT WITHIN REACH.
--- NOTE | 2021-03-16 10:12 | NUR ---
PTS DAUGHTER IN LAW, ANDRZEJ, CALLED FOR UPDATE ON PT STATUS. PT REPORTS HE WOULD LIKE ANDRZEJ TO BE UPDATED. ANDRZEJ UPDATED ON PTS STATUS AND REPORTS PT HAS HAD TROUBLE WITH WORD FINDING AND WITH OCCATIONAL WEAKNESS SINCE HIS PREVIOUS STROKE. CALL TRANSFERED TO PTS ROOM SO PT CAN TALK WITH ANDRZEJ. PT ABLE TO ANSWER PHONE WITHOUT ASSISTANCE. NO ADDITIONAL REQUESTS OR CONCERNS. CALL LIGHT WITHIN REACH.
--- NOTE | 2021-03-16 11:12 | NUR ---
THIS RN TO ROOM TO CHECK ON PT. PT DENIES PAIN AND NAUSEA. PT ASSISTED WITH FINDING TV STATES HE WANTS. PT DENIES ADDITIONAL REQUESTS OR COMPLAINTS. CALL LIGHT WITHIN REACH. PT REMAINS UP TO CHAIR.
--- NOTE | 2021-03-16 12:01 | NUR ---
THIS RN TO ROOM TO CHECK ON PT. PT UP TO CHAIR FOR LUNCH. PT DENIES PAIN AND NAUSEA. LUNCH DELIVERED TO PT. PT DENIES ADDITIONAL REQUESTS OR COMPLAINTS. REMAINS ALERT AND ORIENTED WITH OCCATIONAL WORD FINDING AND STUTTERING NOTED. NO ADDITIONAL REQUESTS OR COMPLAINTS CALL LIGHT WITHIN REACH.
--- NOTE | 2021-03-16 12:52 | NUR ---
THIS RN TO ROOM TO CHECK ON PT. PT REPORTS HE IS READY FOR SHOWER. PT DENIES PAIN AND NAUSEA. INDUSTRIAL SAFETY AND HEALTH TECHNICIAN TO BEDSIDE TO ASSIST PT WITH SHOWER. IV SALINE LOCKED, ALCOHOL CAP APPLIED. NO ADDITIONAL REQUESTS OR COMPLAINTS. CALL LIGHT ORACIO RICE.
--- NOTE | 2021-03-16 13:57 | NUR ---
AFTERNOON ASSESSMENT DUE. PT REMAINS UP TO CHAIR. PT FINISHED WITH SHOWER. PT REPORTS HIS SHOWER FELT "REALLY GOOD." PT DENIES PAIN AND NAUSEA. IV NOTED TO BE LEAKING, IV DC'D PER PROTOCOL, GAUZE AND COBAN APPLIED. NEW IV STARETED TO LEFT UPPER ARM, BRISK BLOOD RETURN NOTED. IV FLUIDS RESTARTED. PT ALERT AND ORIENTED TO ALL. STRENGTH EQUAL BILATERALLY. NO ATAXIA NOTED. NIH SCORE OF 0. PT RESPONDS APPROPIRATLY TO QUESTIONS AND CONVERSATION. WORDS CLEAR AND UNDERSTANDABLE, PT CONTINUES TO HAVE TROUBLE WITH WORD FINDING BUT IS ABLE TO COMMUNICATED IDEAS AND NEEDS. LUNG SOUNDS CLEAR TO ASCULATAION THROUGHOUT. SINUS BRADYCARDIA NOTED ON MONITOR WITH HEART RATE 50-60'S. MD TO BEDSIDE TO REVIEW PLAN OF CARE WITH PT. PT AND PTS VERBALIZE UNDERSTANDING. ICE CREAM PROVIDED FOR SNACK. PT REMAINS UP TO CHAIR. WARM BLANKETS PROVIDED. NO ADDITIONAL REQUESTS OR COMPLAINTS. CALL LIGHT WITHIN REACH. AT BEDSIDE.
--- NOTE | 2021-03-16 15:09 | NUR ---
THIS RN TO ROOM TO CHECK ON PT. PT UP TO CHAIR. REQUESTS ADDITIONAL SNACK, CHEESE AND CRACKERS ORDERED. PT WATCHING TV WITH , DENIES ADDITIONAL REQUESTS OR COMPLAINTS. CALL LIGHT WITHIN REACH.
--- NOTE | 2021-03-16 16:16 | NUR ---
THIS RN TO ROOM TO CHECK ON PT. PT WATCHING TV AND ANTICIPATING DINNER. PT REPORTS HE ATE HIS SNACE. PT DENIES PAIN AND NAUSEA. NO ADDITIONAL REQUESTS OR COMPLAINTS. CALL LIGHT WITHIN REACH. PTS AT BEDSIDE.
--- NOTE | 2021-03-16 16:31 | EKG ---
[facility] [address] [place] [address] Signed Normal sinus rhythm Septal infarct , age undetermined Abnormal ECG When compared with ECG of 30-SEP-2020 13:29, Septal infarct is now present Confirmed by ANIA MCCONNELL DO ([id number]) on 03/16/2021 4:31:17 PM Electronically Signed By: ANIA MCCONNELL DO 03/16/21 1631 PATIENT NAME: JAVIERPAWEL DONNY Electrocardiogram DATE OF : 33 PHYSICIAN: ANIA MCCONNELL DO REPORT #: [id number] REPORT IS CONFIDENTIAL AND NOT TO BE RELEASED WITHOUT AUTHORIZATION
--- NOTE | 2021-03-16 16:38 | NUR ---
PT HERE FOR CVA AND RIGHT SIDED WEAKNESS. PT UP WITH 1 PERSON ASSIST TO CHAIR, RESTROOM, SHOWER, AND WITH PHYSICAL THERAPY THIS SHIFT. PT TOELRATING REGULAR DIET WITH EXCELLENT APPITITE, MULTIPLE SNACKS PROVIDED. PT REMAINS ON TELEMETRY MONITORING WITH NORMAL SINUS RHYTHEM NOTED AND HEART RATE OF 70'S. PT ALERT AND OREINTED THIS SHIFT. NIH SCORES OF 0, NO RIGHT SIDED WEAKNESS NOTED. OCCATIONAL TROUBLE WITH WORD FINDING AND A STUTTER NOTED, FAMILY STATES THIS IS PER PTS BASELINE. PT DENIES PAIN AND NAUSEA THIS SHIFT. PT VOIDING QUANTITY SUFFICIENT. PT USES CALL LIGHT AND MAKES NEEDS KNOWN.
--- NOTE | 2021-03-16 17:10 | NUR ---
THIS RN TO ROOM TO CHECK ON PT. DINNER DELIVERED. PT ASSISTED WITH MEAL TRAY PREPARATIONS. ADDITONAL JUICE ORDERED PER PT REQUEST. PT DENIES PAIN AND NAUSEA. NO ADDITIONAL REQUESTS OR COMPLAINTS. CALL LIGHT WITHIN REACH.
--- NOTE | 2021-03-16 18:00 | NUR ---
PTS BLOOD PRESSURE NOTE TO BE ELEVATED BOTH WITH AUTOMATIC AND MANNUAL READINGS. PRN BLOOD PRESSURE MEDICATION GIVEN. 1 PERSON ASSIST BACK TO BED. PT DENIES PAIN AND NAUSEA. PTS REMAINS AT BEDSIDE. NO ADDITIONAL REQUESTS OR COMPLAINTS. CALL LIGHT WITHIN REACH. BED RAILS UP.
--- NOTE | 2021-03-16 18:50 | NUR ---
PUMP ALARMING, IV FLUID BAG EMPTY. NEW BAG HUNG. INPUT RECORDED. PT DENIES REQUESTS OR COMPLAINTS. CALL LIGHT WITHIN REACH. BED RAILS UP.
--- NOTE | 2021-03-16 20:06 | NUR ---
THIS RN RECEIVED REPORT FROM CHRIS JOINER. PATIENT UP TO THE BATHROOM TO VOID AND BACK TO BED 1PA WITH THIS RN. PATIENT TOLERATED AMBULATION WELL. BED ALARM IS BACK ON AND CALL LIGHT IS IN REACH. PATIENT HAS NO OTHER CARE NEEDS AT THIS TIME.
--- NOTE | 2021-03-16 20:28 | NUR ---
VS COMPLETE. PRIMARY RN JANUSZ IN ROOM. ICE WATER REFILLED. AT BEDSIDE, QUESTIONS ANSWERED REGARDING MEDICATIONS, PERMISSIVE HTN.
--- NOTE | 2021-03-16 20:47 | NUR ---
PATIENT UP TO THE BATHROOM AND BACK TO BED 1PA WITH THIS RN. PATIENT TOLERATED VOIDING STANDING UP. BED ALARM IS ON AND PATIENT'S AT BEDSIDE VISITING. MRI FORM FILLED OUT BY THIS RN, PATIENT, AND PATIENT'S . PATIENT AND VISITING WITH EACHOTHER AND PATIENT WILL CALL IF HE NEEDS ANYTHING ELSE. CALL LIGHT IS IN REACH.
--- NOTE | 2021-03-16 21:23 | NUR ---
PATIENT UP TO THE RESTROOM AND BACK TO BED AGAIN. 1PA BY THIS RN. PATIENT DENIED ANY OTHER NEEDS. BED ALARM IS ON AND CALL LIGHT IS IN REACH.
--- NOTE | 2021-03-16 22:05 | NUR ---
PATIENT CALLED TO GO TO THE BATHROOM AND GOT UP BEFORE CHRIS MONSON ARRIVED IN THE ROOM. PATIENT INFORMED HE NEEDS TO WAIT TO STAND UNTIL STAFF ARRIVES AND PATIENT VERBALIZED UNDERSTANDING. PATIENT BACK IN BED NOW AND BED ALARM IS ON. CALL LIGHT IN REACH.
--- NOTE | 2021-03-16 22:47 | NUR ---
PATIENT CALLED AGAIN TO USE THE RESTROOM AND DID NOT STAND UP THIS TIME UNTIL STAFF ARRIVED TO HELP. 1PA TO THE RESTROOM AND BACK TO BED. THIS RN PUT BED ALARM BACK ON AND CALL LIGHT IS IN REACH. PATIENT DENIES ANY FURTHER NEEDS AT THIS TIME.
--- NOTE | 2021-03-17 00:32 | NUR ---
PATIENT UP TO THE BATHROOM 1PA WITH THIS RN AND BACK TO BED. PATIENT SITTING ON THE BEDSIDE FOR NOW READING HIS BIBLE. PATIENT SAYS HE WILL CALL WHEN READY FOR BED. CALL LIGHT IS IN REACH.
--- NOTE | 2021-03-17 01:12 | NUR ---
PATIENT LAYING DOWN IN BED ONCE AGAIN AND LIGHTS TURNED DOWN AT PATIENT'S REQUEST. CALL LIGHT IN REACH AND BED ALARM IS ON.
--- NOTE | 2021-03-17 03:25 | NUR ---
BED ALARM SOUNDING. pt OUT OF BED TO RESTROOM. SBA. GAIT WEAK, SLOW, pt CAUTIOUS WITH AMBULATION. IVF INFUSING WNL. BACK IN BED. BED ALARM ON. CALL LIGHT IN REACH. pt INSTRUCTED TO USE CALL LIGHT BEFORE GETTING OUT OF BED.
--- NOTE | 2021-03-17 03:26 | NUR ---
BED ALARMING. PATIENT GOT UP TO USE THE TOILET. 1 PA. PATIENT IS BACK IN BED. NO FURTHER CARE NEEDS AT THIS TIME. BED ALARM ON FOR SAFETY.
--- NOTE | 2021-03-17 04:30 | NUR ---
PATIENT FINALLY RESTING QUIETLY, EYES CLOSED, RESPIRATIONS ARE REGULAR AND EVEN, AND CALL LIGHT IS IN REACH.
--- NOTE | 2021-03-17 05:33 | NUR ---
PATIENT JUST UP TO THE BATHROOM X2 WITH THIS RN 1PA. PATIENT WENT ONCE WHEN I WENT IN TO PERFORM AM ASSESSMENT AND AGAIN BEFORE I LEFT. PATIENT IS VOIDING ABOUT 200-400MLS AT A TIME, BUT NO ALWAYS MEASURED PATIENT DOES NOT WANT TO SIT TO VOID OR USE THE COMMODE AND HAS A STRONG ENOUGH STREAM URINE SPLATTERS EVERYWHERE WHEN HE VOIDS. PATIENT AM BLOOD PRESSURE I COULD NOT GET BELOW THE 190'S FOR SBP ON MULTIPLE ATTEMPTS SO PRN HYDRALAZINE GIVEN. PATIENT DENIES PAIN AND FEELS HE IS DOING BETTER AND GETTING STRONGER. PATIENT'S CALL LIGHT IS IN REACH AND HIS BE ALARM IS ON. NO OTHER CARE NEEDS NOTED AT THIS TIME.
--- NOTE | 2021-03-17 07:05 | NUR ---
REPORT RECEIVED FROM CHRIS BOUDREAUX. PT RESTING ON RIGHT SIDE WITH EYES CLOSED, HEAD OF BED ELEVATED TO 20 DEGREES. RESPIRATIONS EVEN AND UNLABORED. BED RAILS UP. CALL LIGHT WITHIN REACH. PT ALLOWED TO REST.
--- NOTE | 2021-03-17 07:40 | NUR ---
PT AMBULATED TO BATHROOM AND BACK TO THE CHAIR. CALL LIGHT WITHIN REACH. CHAIR ALARM ON. CHRIS JOINER IN THE ROOM. CALL LIGHT WITHIN REACH. NO FURTHER NEEDS AT THIS TIME.
--- NOTE | 2021-03-17 07:48 | NUR ---
MORNING ASSESSMENT AND MEDICATION DUE. PT CALL LIGHT ON. 1 PERSON ASSSIT UP TO RESTROOM. PT VOIDS WITHOUT ISSUE. STAND BY ASSIST UP TO CHAIR. PT DENIES PAIN AND NAUSEA THIS MORNING AND REPORTS HE IS HUNGRY FOR BREAKFAST. IV ASSESSED, WNL, BRISK BLOOD RETURN NOTED. NO S/S OF PHLEBITIS NOTED. PT ALERT AND ORIETNED TO ALL. EQUAL STRENGTH BILATERALLY. NO ATAXIA NOTED. PT CONTINUES TO HAVE TROUBLE WITH WORD FINDING BUT IS ABLE TO COMMUNICATE IDEAS. FOR EXAMPLE, PT STATES "THAT THING HERE SO MY FOOD DOESN'T GO EVERYWHERE." WHEN ASKING FOR A TOWEL TO BE PLACED ON CHEST PRIOR TO BREAKFAST. SENSATION INTACT. REPORT STATED THAT PT HAS BEEN HAVING CRACKELS IN LOWER LOBES OF LUNGS. NONE NOTED AT THIS TIME. PT DENIES ANY DIFFICULTY BREATHING OR SHORTNESS OF BREATH. NO COUGH NOTED. BRADYCARDIA CONTINUES ON TELEMETRY MONTIROING WITH HEART RATE 50-60'S. PT REPORTS FEELING READY FOR BREAKFAST. PT VERBALIZES UNDERSTANDING OF PLAN OF CARE AND IMAGING TODAY. NO ADDITIONAL REQUESTS OR COMPLAINTS. CALL LIGHT WITHIN REACH.
--- NOTE | 2021-03-17 09:01 | NUR ---
THIS RN TO ROOM TO CHECK ON PT. PT UP TO CHAIR FINISHING BREAKFAST AND WATCHING TV. PT DENEIS PAIN AND NAUSEA. NO ADDITONAL REQUESTS OR COMPLAINTS. CALL LIGHT WITHIN REACH.
--- NOTE | 2021-03-17 09:16 | NUR ---
PT FINISHED WITH BREAKFAST. STAND BY ASSIST BACK TO BED FOR ECHOCARDIOGRAM. PT POSITIONED ON LEFT SIDE, SUPPORTED WITH PILLOWS. PT REPORTS FEELING COMFORTABLE. ECHOTECHNITIAN TO BEDSIDE. NO ADDITONAL REQUESTS OR COMPLAINTS. CALL LIGHT WIHTIN REACH. BED RAILS UP.
--- NOTE | 2021-03-17 09:48 | NUR ---
PATIENT SITTING UP IN BED WORKING WITH OT. VITALS AND I&O'S CHARTED. RN IN ROOM TO GET PATIENT READY TO GO TO CT SCAN. CALL LIGHT IN REACH. NO FURTHER NEEDS AT THIS TIME.
--- NOTE | 2021-03-17 09:51 | NUR ---
PT FINISHED WITH ECHO CARDIOGRAM. MEDICATION DUE. MD CONSULTED REGARDING HYDRALZINE DOSE, CURRENT VITAL SIGNS AND MEDICAITONS GIVEN THIS MORNING. MD STATES TO GIVE NICARDAPINE BUT HOLD HYDRALAZINE. NICARDAPINE GIVEN. PT DENIES PAIN AND NAUSEA. IV SALINE LOCKED, ALOCHOL CAP APPLIED. TELEMETRY MONITORING AND JEWERLY REMOVED FOR PT TO GO TO MRI. PT TRANSFERES SELF TO WHEELCHAIR. PT TO MRI. NO ADDITIONAL REQUESTS OR COMPLAINTS.
--- NOTE | 2021-03-17 11:10 | NUR ---
THIS RN TO ROOM TO CHECK ON PT. PT UP IN ROOM WALKING AROUND. PT STEADY ON FEET. PT UP TO AMBULATE X1 LAP IN MELENDEZ WITH THIS RN. PT EXCITED TO "WALK AROUND" AND REPORTS "IT FEELS GOOD TO MORE AROUND." PT STEADY ON FEET WITH AMBULATION, NO WALKER REQUIRED. PT BACK TO ROOM AND UP TO PSYCHIATRIC. WARM BLANKET PROVIDED. NO ADDITIONAL REQUESTS OR COMPLAINTS. CALL CRISTY RICE.
--- NOTE | 2021-03-17 12:12 | NUR ---
THIS RN TO ROOM TO CHECK ON PT. PT UP TO CHAIR FOR LUNCH. PT REPORTS A GOOD APPITITE. PT ASSISTED WITH MEAL TRAY PREPARATIONS. PT DENIES PAIN AND NAUSEA. NO ADDITIONAL REQUESTS OR COMPLAINTS. CALL LIGHT WITHIN REACH.
--- NOTE | 2021-03-17 13:10 | NUR ---
THIS RN TO ROOM TO CHECK ON PT. PT UP TO CHAIR. PT REPORTS HE WOULD LIKE TO GO HOME SOON. PT UPDATED ON PLAN OF CARE. PT REPORTS DRY SKIN TO HANDS, LOTION PROVIDED. NO ADDITIONAL REQUESTS OR COMPLAINTS. PT REMAINS UP TO CHAIR. CALL LIGHT WITHIN REACH.
[2021-03-17] MEDS ORDERED: LIPITOR40 MG PO (13:33)
[2021-03-17] MEDS ORDERED: ASPIRIN81 MG PO (13:34)
--- NOTE | 2021-03-17 13:48 | NUR ---
PT READY FOR DISCHARGE. PT DRESSED WITH ONE PERSON ASSIST. PT REPORTS CONFIENCE WITH AMBULATION STATING HE FEELS "LIKE I CAN DO IT ALL ON MY OWN AGAIN." PT STEADY ON FEET WITH STAND BY ASSIST. VITAL SIGNS STABLE. IV DC'D PER PROTOCOL. GAUZE AND COBAN APPLIED. DISCHARGE INSTRUCTIONS REVIEWED WITH PT AND PTS . PT AND VERBALIZE UNDERSTANDING OF INSTRUCTIONS, MEDICAITON, AND FOLLOW UP. PHARMACIST TO BEDSIDE TO REVIEW MEDICATIONS WITH PT AND FAMILY. PT AND FAMILY VERBALIZE UNDERSTANDING OF MEDICATIONS AND STATE THEIR QUESTIONS HAVE BEEN ANSWERED. PT TRANSFERS SELF TO WHEELCHAIR AND IS WHEELED FROM MED/SURG TO MEET HIS . NO ADDITIONAL REQUESTS OR CONCERNS.
--- NOTE | 2021-03-17 14:00 | NUR ---
PT HAS QUESTIONS ABOUT STOPPING HIS LATANPROST EYE DROPS. MD SANTIAGO. WILL CALL PT WITH INSTRUCTIONS REGARDING THESE EYEDROPS.
--- NOTE | 2021-03-17 14:34 | NUR ---
PT AND CORAZON CALLED AND UPDATED TAVARES FRENCH INSTRUCTIONS TO CONTINUE LATANAPROST EYE DROPS USED BEFORE. PT AND VERBALIZE UNDERSTANDING AND STATE THEIR QUESTIONS HAVE BEEN ANSWERED.
== END 2021-03-17 14:00 | disposition home or self-care (01) | DRG 57 ==
LOC: ED 13:14 → MS 17:24
PROVIDERS: ADMIT Student in an Organized Health Care Education/Training Program; ATTEND Student in an Organized Health Care Education/Training Program
DX: I69.351 Hemiplegia and hemiparesis following cerebral infarction affecting right dominant side (principal); Z20.822 Contact with and (suspected) exposure to COVID-19; G40.909 Epilepsy, unspecified, not intractable, without status epilepticus; I10 Essential (primary) hypertension; E03.9 Hypothyroidism, unspecified; K21.9 Gastro-esophageal reflux disease without esophagitis; Z85.46 Personal history of malignant neoplasm of prostate; Z85.528 Personal history of other malignant neoplasm of kidney; Z87.891 Personal history of nicotine dependence; Z98.890 Other specified postprocedural states; Z90.79 Acquired absence of other genital organ(s); Z90.5 Acquired absence of kidney; Z79.899 Other long term (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; Z88.1 Allergy status to other antibiotic agents; Z88.8 Allergy status to other drugs, medicaments and biological substances
CPT/HCPCS: 70450; 70496; 70498; 70551; 71045; 80048; 80061; 81001; 83036; 83735; 84484; 85025; 85610; 85730; 93005; 93010; 93306; 97110; 97161; 97165; 99285-25; C9803; J1650; J7030; J7121; U0003

== ENCOUNTER 2021-04-05 15:09 | Emergency (ER) | payer MEDICARE ==
[~2021-04-05] VITALS: Ht 170.2 cm; Wt 66.3 kg
[~2021-04-05 15:09] MED LIST changes: +ASPIRIN81 MG PO; +HEARTBURN PREVE20 MG PO; +LATANOPROST2.5 ML OU; +LIPITOR40 MG PO; +MIRALAX17 GM PO; +NIFEDIPINE ER60 M1 PO
--- OUTSIDE RECORDS SUMMARY | 2021-04-05 15:12 | XMS ---
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 Care History Medical/Surgical 03/17/2021 [facility] - Patient is currently established with [facility]. If patient is seen in the ED during business hours. Please contact CHWs at [facility]. Care Recommendation: If this patient has had 5 or more Emergency Department visits in the last 12 months.\T\nbsp; Patient will require education on the scope and purpose of the ED as an acute care provider not a Primary Care Provider and should not be utilized for chronic conditions.\T\nbsp; These are guidelines and the provider should exercise clinical judgment when providing care. 03/17/2021 [facility] Seen by Luis on 03/07/2021 for colon cancer findings. Follow up visit with Dr. Peacock on 04/02/2021 12/11/2019 [facility] Patient seen in ED for post op concerns and was diagnosed with acute kidney injury to which he was admitted to [facility].\T\nbsp; Patient has 2:40 appointment with PCP Manuel Rivas.\T\nbsp; Informed Manuel that patient still in hospital. [facility]: Visits indicate total known visits. ED/C VISIT TRACKING (12 MO.) 04/05/2021 15:[address] [facility] [place] TYPE: Emergency COMPLAINT: - CHEST PAIN 03/15/2021 13:[address] [facility] [place] TYPE: Emergency COMPLAINT: - POSS STROKE 10/10/2020 18:[address] [facility] [place] TYPE: Emergency COMPLAINT: - RECTAL BLEEDING DIAGNOSES: - Other fdc (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 - Allergy status to other antibiotic agents - Essential (primary) hypertension - Personal history of nicotine dependence - Hemorrhage of anus and rectum - Allergy status to other drugs, medicaments and biological substances 07/20/2020 18:[address] 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 - Other fdc (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 - Laceration without foreign body of other part of head, initial encounter - Fall on same level from slipping, tripping and stumbling with subsequent striking against unspecified object, initial encounter - Essential (primary) hypertension INPATIENT VISIT TRACKING (12 MO.) 03/15/2021 17:24 [facility] TYPE: Medical Surgical COMPLAINT: - CVA DIAGNOSES: - Essential (primary) hypertension - Hypothyroidism, unspecified - Allergy status to other antibiotic agents - Epilepsy, unspecified, not intractable, without status epilepticus - Other fdc (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 - Other specified postprocedural states - Gastro-esophageal reflux disease without esophagitis - Personal history of nicotine dependence - Personal history of malignant neoplasm of prostate - Acquired absence of kidney - Personal history of other malignant neoplasm of kidney - Hemiplegia and hemiparesis following cerebral infarction affecting right dominant side - Acquired absence of other genital organ(s) - Allergy status to other drugs, medicaments and biological substances [facility] DIAGNOSES: - Malignant neoplasm of ascending colon - Acquired absence of other specified parts of digestive tract [email or web address]
--- NOTE | 2021-04-05 20:26 | EKG ---
[facility] [address] [place], [place] [address] Signed Normal sinus rhythm Normal ECG No previous ECGs available Confirmed by CHARLY HENSON MD ([id number]) on 04/05/2021 8:25:52 PM Electronically Signed By: CHARLY HENSON MD 04/05/212025 PATIENT NAME: PAWEL HERRERA Electrocardiogram DATE OF : 33 PHYSICIAN: CHARLY HENSON MD REPORT #: [id number] REPORT IS CONFIDENTIAL AND NOT TO BE RELEASED WITHOUT AUTHORIZATION
== END 2021-04-05 16:55 | disposition home or self-care (01) ==
LOC: ED 15:09
DX: R07.89 Other chest pain (principal); R10.13 Epigastric pain; I10 Essential (primary) hypertension; Z86.73 Personal history of transient ischemic attack (TIA), and cerebral infarction without residual deficits; Z85.46 Personal history of malignant neoplasm of prostate; Z85.528 Personal history of other malignant neoplasm of kidney; Z87.891 Personal history of nicotine dependence; Z88.8 Allergy status to other drugs, medicaments and biological substances; Z79.82 Long term (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; Z79.899 Other long term (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; Z79.890 Hormone replacement therapy
CPT/HCPCS: 71045; 80053; 83690; 84484; 85025; 93005; 93010; 99285-25

== ENCOUNTER 2021-04-07 15:25 | Emergency (ER) | payer MEDICARE ==
[~2021-04-07] VITALS: Ht 170.2 cm; Wt 66.3 kg
--- OUTSIDE RECORDS SUMMARY | 2021-04-07 15:28 | XMS ---
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 Care History Medical/Surgical 04/07/2021 [facility] Patient has appointment with Dr. Palma on 04/08/2021. 03/17/2021 [facility] - Patient is currently established with [facility]. If patient is seen in the ED during business hours. Please contact CHWs at [facility]. Care Recommendation: If this patient has had 5 or more Emergency Department visits in the last 12 months.\T\nbsp; Patient will require education on the scope and purpose of the ED as an acute care provider not a Primary Care Provider and should not be utilized for chronic conditions.\T\nbsp; These are guidelines and the provider should exercise clinical judgment when providing care. 03/17/2021 [facility] Seen by Luis on 03/07/2021 for colon cancer findings. Follow up visit with Dr. Peacock on 04/02/2021 [facility] VISIT COUNT (12 MO.) [address] [facility] TOTAL 5 NOTE: Visits indicate total known visits. ED/UCC VISIT TRACKING (12 MO.) 04/07/2021 15:[address] 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 [place] TYPE: Gastroenterology DIAGNOSES: - Malignant neoplasm of ascending colon - Acquired absence of other specified parts of digestive tract [email or web address]
[2021-04-07] MEDS ORDERED: PROTONIX40 MG PO (15:55)
[2021-04-07] MEDS ORDERED: SPIRONOLACTONE50 MG PO (16:15)
== END 2021-04-07 16:18 | disposition home or self-care (01) ==
LOC: ED 15:25
DX: R09.89 Other specified symptoms and signs involving the circulatory and respiratory systems (principal); T17.228A Food in pharynx causing other injury, initial encounter; I10 Essential (primary) hypertension; Z86.73 Personal history of transient ischemic attack (TIA), and cerebral infarction without residual deficits; Z85.46 Personal history of malignant neoplasm of prostate; Z85.528 Personal history of other malignant neoplasm of kidney; Z87.891 Personal history of nicotine dependence; Z88.8 Allergy status to other drugs, medicaments and biological substances; Z79.82 Long term (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; Z79.890 Hormone replacement therapy; Z79.899 Other long term (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
CPT/HCPCS: 99283

== ENCOUNTER 2021-04-26 19:07 | Emergency (ER) | payer MEDICARE, OTHER ==
[~2021-04-26] VITALS: Ht 170.2 cm; Wt 66.3 kg
[~2021-04-26 19:07] MED LIST changes: +PROTONIX40 MG PO
--- OUTSIDE RECORDS SUMMARY | 2021-04-26 19:10 | XMS ---
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 Care History Medical/Surgical 04/07/2021 [facility] Patient has appointment with Dr. Palma on 04/08/2021. Note has been sent to Dr. Winkler office to get patient scheduled for Endoscopy. 03/17/2021 [facility] - Patient is currently established with [facility]. If patient is seen in the ED during business hours. Please contact CHWs at [facility]. Care Recommendation: If this patient has had 5 or more Emergency Department visits in the last 12 months.\T\nbsp; Patient will require education on the scope and purpose of the ED as an acute care provider not a Primary Care Provider and should not be utilized for chronic conditions.\T\nbsp; These are guidelines and the provider should exercise clinical judgment when providing care. 03/17/2021 [facility] Seen by Luis on 03/07/2021 for colon cancer findings. Follow up visit with Dr. Peacock on 04/02/2021 E.[facility] VISIT COUNT (12 MO.) [address] [facility] TOTAL 6 NOTE: Visits indicate total known visits. ED/UCC VISIT TRACKING (12 MO.) 04/26/2021 19:08 [facility] [place] TYPE: Emergency COMPLAINT: - COUGH, SHORTNESS OF BREATH 04/07/2021 15:25 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 - Personal history of malignant neoplasm of prostate - detention (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 - Food in pharynx causing other injury, initial encounter - Allergy status to other drugs, medicaments and biological substances - Personal history of transient ischemic attack (TIA), and cerebral infarction without residual deficits - Personal history of nicotine dependence - Essential (primary) hypertension - Hormone replacement therapy - Personal history of other malignant neoplasm of kidney 04/05/2021 15:10 [facility] [place] TYPE: Emergency COMPLAINT: - CHEST PAIN DIAGNOSES: - Hormone replacement therapy - Epigastric pain - 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 - Essential (primary) hypertension - Personal history of malignant neoplasm of prostate - Personal history of other malignant neoplasm of kidney - Other chest pain - Allergy status to other drugs, medicaments and biological substances - 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 - Personal history of nicotine dependence - Personal history of transient ischemic attack (TIA), and cerebral infarction without residual deficits 03/15/2021 13:15 [facility] [place] TYPE: Emergency COMPLAINT: - POSS STROKE 10/10/2020 18:35 [facility] [place] TYPE: Emergency COMPLAINT: - RECTAL BLEEDING DIAGNOSES: - 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
--- NOTE | 2021-04-29 13:42 | EKG ---
[facility] [address] [place] [address] Signed Normal sinus rhythm Possible Left atrial enlargement Left axis deviation Minimal voltage criteria for LVH, may be normal variant ( R in aVL ) Abnormal ECG When compared with ECG of 05-APR-2021 15:09, No significant change was found Confirmed by FAUSTINO MARQUIS MD ([id number]) on 04/29/2021 1:42:34 PM Electronically Signed By: FAUSTINO MARQUIS MD 04/29/21 1342 PATIENT NAME: PAWEL HERRERA Electrocardiogram DATE OF : 33 PHYSICIAN: FAUSTINO MARQUIS MD REPORT #: [id number] REPORT IS CONFIDENTIAL AND NOT TO BE RELEASED WITHOUT AUTHORIZATION
== END 2021-04-26 21:00 | disposition home or self-care (01) ==
LOC: ED 19:07
DX: J20.9 Acute bronchitis, unspecified (principal); I10 Essential (primary) hypertension; Z86.73 Personal history of transient ischemic attack (TIA), and cerebral infarction without residual deficits; Z85.46 Personal history of malignant neoplasm of prostate; Z85.528 Personal history of other malignant neoplasm of kidney; Z87.891 Personal history of nicotine dependence; Z88.8 Allergy status to other drugs, medicaments and biological substances; Z79.899 Other long term (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; Z79.82 Long term (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; Z20.822 Contact with and (suspected) exposure to COVID-19
CPT/HCPCS: 71045; 93005; 93010; 94640; 94664; 99285-25; C9803; U0003

== ENCOUNTER 2021-06-09 09:40 | Day surgery (SDC) | payer MEDICARE, OTHER ==
[~2021-06-09] VITALS: Ht 170.2 cm; Wt 69.5 kg
--- NOTE | 2021-06-09 11:59 | NUR ---
06/09/21 1159 Melanie Frances 1153- PT TO PACU IN SUPINE POSITION. EYES CLOSED. PT DOES NOT RESPOND TO VERBAL OR TACTILE STIMULI. BREATHING EASY AND UNLABORED WITH ORAL AIRWAY AND JAW THRUST. SPO2 >95% ON 10 L O2 SIMPLE MASK. 1159- PT CONTINUES TO SLEEP IN SUPINE POSITION WITH ORAL AIRWAY IN PLACE. JAW THRUST REQUIRED TO PROMOTE ADEQUATE VENTILATIONS. SPO2 >95% ON 10 L O2 VIA SIMPLE MASK.
--- NOTE | 2021-06-09 13:52 | NUR ---
LE 1238 PT RETURNED FROM SURGERY SLEEPY WITH NO C/O'S. 1244 REPOSITIONED PT TO PRONE POSITION. 1304 YANES UNCLAMPED AND EMPTIED. DC'D YANES WITH TIP INTACT. REPOSITIONED PT TO BACK AND SITTING AT 45 DEGREES. 1315 SIPPING ON JUICE. ATTEMPTED TO CALL WITH NO ANSWER. 1355 AT BEDSIDE. REFILLED JUICE. NO C/O'S.
--- NOTE | 2021-06-09 14:44 | NUR ---
PT STANDING AT SIDE OF BED ATTEMPING TO VOID. UNABLE TO VOID. BACK IN BED WITH WARM BLANKETS. NO C/O'S.
--- NOTE | 2021-06-09 15:46 | NUR ---
1515 ANSWERED CALL LIGHT PT REPORTS NEEDING TO VOID ASSISTED PT TO STAND AT BEDSIDE TO VOID IN URINAL, HE WAS ABLE TO VOID 100ML OF DARK YELLOW URINE. HELPED PT BACK INTO BED. PT STATES READINESS TO GO HOME, IV DC'D TIP IN TACT, DISCHARGE INSTRUCTIONS GIVEN TO PT AND BOTH VOICED UNDERSTANDING.
--- NOTE | 2021-06-11 18:05 | OR ---
[facility] [address] [place], [place] [address] Signed DATE OF OPERATION: 06/09/2021 SURGEON: Karla Reynoso MD PREOPERATIVE DIAGNOSES: 1. 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 2. History of urothelial carcinoma of the right ureter, status post right nephroureterectomy. 3. Recent urine cytology positive for high-grade urothelial cell carcinoma. POSTOPERATIVE DIAGNOSES: 1. 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 2. History of urothelial carcinoma of the right ureter, status post right nephroureterectomy. 3. Recent urine cytology positive for high-grade urothelial cell carcinoma. 4. Area of active recurrence, measuring approximately 2 cm on the posterior wall of the bladder, just superior to the location of the previous right ureteral orifice. PROCEDURES: 1. Diagnostic cystoscopy with left retrograde pyelogram. 2. Transurethral resection of bladder tumor - small. 3. Intravesical instillation of mitomycin chemotherapy. ANESTHESIA: General. ESTIMATED BLOOD LOSS: Minimal. COMPLICATIONS: None. SPECIMENS: Resected area of suspicion present in the posterior wall of the bladder. Two small specimens were obtained from this area and sent to Pathology for evaluation. DRAINS: An 18-Vincentian two-way Whitaker catheter, capped and secured to the patient's abdomen. INDICATIONS FOR PROCEDURE: Electronically Signed By: KARLA REYNOSO MD 06/11/21 1805 PATIENT NAME: PAWEL CANALES OPERATIVE REPORT DATE OF : 33 REPORT #: [id number] PHYSICIAN: KARLA REYNOSO MD PCP: DI JASON REPORT IS CONFIDENTIAL AND NOT TO BE RELEASED WITHOUT AUTHORIZATION [facility] [address] [place], [place] [address] Signed Mr. Canales is a very pleasant 86-year-old gentleman with history of colon cancer, prostate cancer, bladder cancer, and right ureteral carcinoma, status post right nephroureterectomy, who presents today to undergo TURBT-Small with Mitomycin instillation after he underwent recent cystoscopy, which revealed a couple of distinct areas of erythema on the dome of the bladder. Urine cytology at that time came back positive for malignant cells. The patient otherwise has denied any issues with voiding and has not experienced any recent fevers, chills, or unintended weight loss. OPERATIVE FINDINGS: 1. On cystoscopy, the previously noted patches of erythema on the dome of the bladder had resolved spontaneously. However, there was a 1-2 cm patch of a velvety plaque noted on the posterior wall of the bladder just superior to where the right ureteral orifice would have been. This area was resected using a bipolar loop and the specimen sent to Pathology for evaluation. 2. Left retrograde pyelogram was performed, which revealed no evidence of any filling defect or other abnormality within the entire left ureter or within the left renal pelvis. 3. Total of 40 mg and 20 mL of mitomycin was instilled into the patient's bladder via a new lead placed 18-Vincentian Whitaker catheter. DESCRIPTION OF PROCEDURE: After informed consent was obtained, the patient was taken back to the operating room. He was transferred from the [facility] to the operating room table, where general anesthesia was induced. He was placed in the dorsal lithotomy position and his genitalia were prepped and draped in a standard sterile fashion. Using a 30-degree lens on a 22.5-Vincentian introducer, rigid cystoscope was inserted through the urethra and into his bladder under direct visualization. Panendoscopic views of the bladder were then obtained, please see above findings. Attention was turned to the left ureteral orifice. A cone-tipped catheter was advanced to the level of the left ureteral orifice and a left retrograde pyelogram was then performed, please see above findings. I then removed the cone-tipped catheter along with the diagnostic cystoscope. The patient's urethral meatus was then dilated from 20-Vincentian to 28-Vincentian without difficulty. I then instilled 60 mL of sterile lubrication into the patient's urethra to prevent future stricture. Using a visual obturator, I passed a 26-Vincentian sheath into the patient's bladder. With the sheath in place, I removed the visual obturator and replaced it with resectoscope with a 24-Vincentian loop. I resected the area of suspicion present on the posterior wall of the bladder, measuring around 1-2 cm in size. I then cauterized the remaining area using bipolar cautery. The tissue that was resected was then irrigated from the bladder and sent to pathology for evaluation. I then thoroughly inspected the remainder of the bladder and any suspicious area of erythema was cauterized. There were many areas of erythema other than one small area on the dome of the bladder. The previous two areas of erythema noted on recent cystoscopy were no longer present. I Electronically Signed By: KARLA REYNOSO MD 06/11/21 3213 PATIENT NAME: PAWEL CANALES OPERATIVE REPORT DATE OF : 33 REPORT #: [id number] PHYSICIAN: KARLA REYNOSO MD PCP: DI JASON REPORT IS CONFIDENTIAL AND NOT TO BE RELEASED WITHOUT AUTHORIZATION [address] [address] Signed closely inspected the left ureteral orifice, which appeared to be free of any involvement of any superficial disease. Once I was satisfied that the biopsy site had been cauterized appropriately, I removed the resectoscope and then irrigated the patient's bladder with sterile saline. The 26-Vincentian sheath was then removed and an 18-Vincentian Whitaker catheter was inserted into the patient's bladder and 20 mL was instilled into the Whitaker balloon. The patient's bladder was then mainly irrigated using the existing Whitaker catheter. The catheter was then allowed to drain completely and then I instilled 40 mg in 20 mL of intravesical mitomycin into the patient's bladder. The catheter was then capped and then secured to the patient's abdomen. A belladonna and opioid suppository were then administered per rectum. The procedure was then terminated. The patient tolerated the procedure well without any complication. He will now be transferred to the Postanesthesia Care Unit in stable condition. DISPOSITION: I discussed the details of today's procedure with the patient's and answered all of her questions. He will be flipped every 20 minutes for the next hour and 20 minutes to be sure the mitomycin is completely evenly spread throughout his bladder. Mitomycin will then be drained from his bladder using a catheter. The catheter will be then discontinued. He will be allowed to go home once he is able to void on his own. He was sent home today with Keflex 500 mg p.o. t.i.d. for a total of 5 days along with oxycodone 5 mg one tablet q.8 hours p.r.n. pain, dispense #10. He has been placed back on the schedule in early December to undergo another routine surveillance cystoscopy. MD ALBA Keene/RIYA /[id number] Copies: ~ Electronically Signed By: KARLA REYNOSO MD 06/11/21 1805 PATIENT NAME: PAWEL CANALES OPERATIVE REPORT DATE OF : 33 REPORT #: [id number] PHYSICIAN: KARLA REYNOSO MD PCP: DI JASON REPORT IS CONFIDENTIAL AND NOT TO BE RELEASED WITHOUT AUTHORIZATION
[2021-10-02] MEDS ORDERED: KEPPRA500 MG PO (10:39)
[2021-10-02] MEDS ORDERED: ONDANSETRON HCL4 MG PO (10:40)
[2021-10-02] MEDS ORDERED: SILDENAFIL20 MG PO (10:41)
[2021-10-02] MEDS ORDERED: ALDACTONE50 MG PO (10:41)
[2021-10-24] MEDS ORDERED: SPIRONOLACTONE50 MG PO (07:10)
[2021-10-24] MEDS ORDERED: PROTONIX40 MG PO (07:11)
== END 2021-06-09 15:35 | disposition home or self-care (01) ==
LOC: DS 09:40
PROVIDERS: ATTEND Urology
PROC: 0TBB8ZZ Excision of Bladder, Via Natural or Artificial Opening Endoscopic (ICD-10-PCS; principal; 2021-06-09 10:20)
DX: C67.4 Malignant neoplasm of posterior wall of bladder (principal); N18.4 Chronic kidney disease, stage 4 (severe)
CPT/HCPCS: 00912; 74420; 88305; C1769; J0690; J1100; J1885; J2405; J2704; J2765; J3010; J7121; J9280; Q9967

== ENCOUNTER 2021-06-14 22:31 | Observation (INO) | payer MEDICARE, OTHER ==
[~2021-06-14] VITALS: Ht 170.2 cm; Wt 67.8 kg
--- OUTSIDE RECORDS SUMMARY | 2021-06-14 22:34 | XMS ---
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 Care History Medical/Surgical 04/07/2021 [facility] Patient has appointment with Dr. Palma on 04/08/2021. Note has been sent to Dr. Winkler office to get patient scheduled for Endoscopy. 03/17/2021 [facility] - Patient is currently established with [facility]. If patient is seen in the ED during business hours. Please contact CHWs at [facility]. Care Recommendation: If this patient has had 5 or more Emergency Department visits in the last 12 months.\T\nbsp; Patient will require education on the scope and purpose of the ED as an acute care provider not a Primary Care Provider and should not be utilized for chronic conditions.\T\nbsp; These are guidelines and the provider should exercise clinical judgment when providing care. 03/17/2021 [facility] Seen by Luis on 03/07/2021 for colon cancer findings. Follow up visit with Dr. Peacock on 04/02/2021 E.DRani VISIT COUNT (12 MO.) 7 [facility] TOTAL 7 NOTE: Visits indicate total known visits. ED/UCC VISIT TRACKING (12 MO.) 06/14/2021 22:32 [facility] [place] TYPE: Emergency COMPLAINT: - BODY TRIMMERS 04/26/2021 19:08 [facility] [place] TYPE: Emergency COMPLAINT: - COUGH, SHORTNESS OF BREATH DIAGNOSES: - Personal history of nicotine dependence - Allergy status to other drugs, medicaments and biological substances - Contact with and (suspected) exposure to COVID-19 - Cough, unspecified - Personal history of malignant neoplasm of prostate - Essential (primary) hypertension - COUGH, UNSPECIFIED - prison (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 - Acute bronchitis, unspecified - Personal history of transient ischemic attack (TIA), and cerebral infarction without residual deficits - Personal history of other malignant neoplasm of kidney - Other senior living (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 04/07/2021 15:25 [facility] [place] TYPE: Emergency COMPLAINT: - SWALLOWING PROBLEM DIAGNOSES: - Other specified symptoms and signs involving the circulatory and respiratory systems - Gastric contents in pharynx causing asphyxiation, initial encounter - Other terminal manager (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 - Personal history of malignant neoplasm of prostate - prison (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 - Food in [...] replacement therapy - Epigastric pain - Other terminal manager (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 - Essential (primary) hypertension - Personal history of malignant neoplasm of prostate - Personal history of other malignant neoplasm of kidney - Other chest pain - Allergy status to other drugs, medicaments and biological substances - manager terminal (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 - Personal history of nicotine dependence - Personal history of transient ischemic attack (TIA), and cerebral infarction without residual deficits 03/15/2021 13:15 [facility] [place] TYPE: Emergency COMPLAINT: - POSS STROKE 10/10/2020 18:35 [facility] [place] TYPE: Emergency COMPLAINT: - RECTAL BLEEDING DIAGNOSES: - Other senior living (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 - Allergy status to [...] - Personal history of nicotine dependence - manager terminal (current) use of opiate analgesic - Other terminal manager (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 - Laceration without foreign [...] not intractable, without status epilepticus - Other senior living (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 - Other specified postprocedural [...] drugs, medicaments and biological substances 11/25/2020 07:11 [facility] [place] TYPE: Gastroenterology DIAGNOSES: - Malignant neoplasm of ascending colon - Acquired absence of other specified parts of digestive tract [email or web address]
[2021-06-14] MEDS ORDERED: LATANOPROST2.5 ML OU ×2 (23:07)
[2021-06-14] MEDS ORDERED: INDAPAMIDE1.25 MG PO ×2 (23:08)
--- NOTE | 2021-06-15 08:00 | NUR ---
ASSESSMENT DONE, SITTING UP IIN BED EATING BREAKFAST. IN ROOM, SHE IS TELLING ME ABOUT HER HEALTH HISTORY. PATIENT DENIES PAIN. STATES HE FEELS MUCH BETTER TODAY. TALKED WITH PATIENT AND PATIENT ABOUT POC FOR DAY, INDICATES UNDERSTANDING.
[2021-06-15] MEDS ORDERED: ASPIRIN81 MG PO ×2 (08:19)
--- NOTE | 2021-06-15 09:00 | NUR ---
TOOK BREAKFAST WELL. IVF INFUSING AT 100 ML/HR. NO CHANGES.
--- NOTE | 2021-06-15 10:30 | NUR ---
MEDICATIONS GIVEN. STOOD WITH ASSIST AT BEDSIDE TO VOID. REMAINS IN ROOM.
--- NOTE | 2021-06-15 11:00 | NUR ---
REPORT TO MED-SURG. MONITOR ROOSEVELT'Cheri.
--- NOTE | 2021-06-15 11:20 | NUR ---
Received patient from CCU, accompanied. Patient is here with potentail aspiration, had chills/fever on admit to CCU, afebrile at this time. IV antibitoics given prior to arrival to the floor. Patient reports no pain, and can be a little confused/forgetful.
--- NOTE | 2021-06-15 11:25 | NUR ---
TO MED SURG VIA CHAIR. IVF INFUSING AT 50 ML/HR. REMAINS WITH PATIENT.
--- NOTE | 2021-06-15 12:16 | NUR ---
Physical therapy ambulated the patient in the hallway with his . He advised for today to continue to use the walker and SBA, then move to just SBA tawana. He normally uses no devices at home.
--- NOTE | 2021-06-15 14:22 | NUR ---
VS stable, I/Os completed, afternoon assessment completed. No pain, no distress noted. continues to be at the bedside
--- NOTE | 2021-06-15 14:23 | EKG ---
[facility] [address] [facility] [place] [address] Signed Normal sinus rhythm Left axis deviation Abnormal ECG When compared with ECG of 26-APR-2021 19:16, No significant change was found Confirmed by FAUSTINO MARQUIS MD ([id number]) on 06/15/2021 2:23:42 PM Electronically Signed By: FAUSTINO MARQUIS MD 06/15/21 1423 PATIENT NAME: PAWEL HERRERA Electrocardiogram DATE OF : 33 PHYSICIAN: FAUSTINO MARQUIS MD REPORT #: [id number] REPORT IS CONFIDENTIAL AND NOT TO BE RELEASED WITHOUT AUTHORIZATION
[2021-06-15] MEDS ORDERED: TYLENOL325 MG PO ×2 (14:31)
--- NOTE | 2021-06-15 16:35 | NUR ---
Patient and spouse napping. Had to wake the patient to take his evening medications.
--- NOTE | 2021-06-15 18:36 | NUR ---
Patient having dinner, sitting up in the bed. No pain no distress noted
--- NOTE | 2021-06-15 19:15 | NUR ---
BEDSIDE REPORT RECEIVED FROM OFFGOING RNCHAGO. PT RESTING IN BED WITH AT BEDSIDE. DINNER TRAY TAKEN FROM PT'S PER HER REQUEST. NEEDS DENIED AT THIS TIME. CALL LIGHT IN REACH.
--- NOTE | 2021-06-15 20:35 | NUR ---
MADE BED FOR THE STAYING OVER NIGHT.
--- NOTE | 2021-06-15 21:56 | NUR ---
PT ASSESSMENT COMPELTE. PT DENIES PAIN, NAUSEA, OR SOB. PT WITH CRACKLES AUSCLTATED TO RLL, ALL OTHER LOBES CLEAR. CRACKLES DO NOT CLEAR WITH DRY COUGH. PT ALERT, ORIENTED TO PERSON, PLACE, AND TIME. PT WITH ATTENDS IN PLACE, DRY AT THIS TIME. PT DENIES NEED TO VOID. IV FLUSHED X2 WITH 10 ML NS. PATENT, WNL. SCHEDULED MEDICATIONS INITIATED ORDERED. BED ALARM ACTIVE PT DENIES FRUTHER NEEDS AT THIS TIME. CALL LIGHT IN REACH. PT STATES THAT HIS WILL BE COMING BACK TO STAY THE NIGHT. COUCH IS MADE INTO BED FOR HER ARRIVAL PER HER REQUEST EARLIER.
--- NOTE | 2021-06-15 23:30 | NUR ---
PT RESTING IN BED WITH EYES CLOSED. PT DOES NOT WAKE WHEN DOOR OPENED. APPEARS TO BE SLEEPING. SLEEPING ON COUCH IN ROOM. CALL LIGHT IN REACH. BED ALARM ACTIVE.
--- NOTE | 2021-06-16 01:23 | NUR ---
PT RESTING IN BED ON R SIDE. DOES NOT WAKE WHEN FLAG CAR DRIVER ENTERS THE ROOM. CALL LIGHT IN REACH. BED ALARM ACTIVE. PT'S SLEEPING AT BEDSIDE ON COUCH.
--- NOTE | 2021-06-16 02:52 | NUR ---
PATIENT CALLED. 1 PA. PATIENT STOOD UP BY THE BEDSIDE TO USE THE URINAL. PATIENT IS BACK IN BED. CHRIS HUGHES WAS WITH PATIENT.
--- NOTE | 2021-06-16 02:57 | NUR ---
PT UTILIZES CALL LIGHT, REQUESTS TO USE THE BATHROOM. PT ASSISTED TO STAND AT BEDSIDE WITH 1PA AND FWW. USES URINAL APPROPRIATELY. PT ASSESSMENT COMPLETE. PT DENIES PAIN, NAUSEA, OR SOB. LUNG SOUNDS WITH CRACKLES TO BILATERAL LOWER LOBES. CRACKLES DO NO CLEAR WITH COUGH. IV X [address] PT DENIES FURTHER NEEDS. CALL LIGHT IN REACH. PT'S SLEEPING ON COUCH.
--- NOTE | 2021-06-16 04:15 | NUR ---
PT UTLIZES CALL LIGHT, REQUESTS TO USE THE URINAL, ASSISTED. PT UNABLE TO VOID AT THIS TIME AND RETURNED TO BED. PT DENIES FURTHER NEEDS. CALL LIGHT IN REACH. ASLEEP ON COUCH.
--- NOTE | 2021-06-16 07:10 | NUR ---
BEDSIDE HANDOFF REPORT RECEIVED FROM PUBLIC ADDRESS SERVICER RN. PT RESTING IN BED, AT BEDSIDE. PT DENIES NEEDS AT THIS TIME.
--- NOTE | 2021-06-16 08:00 | NUR ---
PT RESTING IN BED. PT UNABLE TO STATE DATE BUT KNOWS DAY OF THE WEEK, OTHERWISE ORIENTED. PT DENIES PAIN. VSS. PT ASSISTED TO BATHROOM, VOIDED AND HAD BM, ASSISTED TO CHAIR, 1PA WITH FWW. PT ON ROOM AIR, LUNG SOUNDS CLEAR IN UPPER, CRACKLES IN LOWER LOBES. BOWEL TONES ACTIVE, DENIES NAUSEA, AWAITING BREAKFAST. CMS INTACT, WITHOUT EDEMA. MORNING MEDICATIONS GIVEN PER EMAR. AT BEDSIDE. PT DENIES OTHER NEEDS AT THIS TIME.
--- NOTE | 2021-06-16 11:20 | NUR ---
I have been able to visit with Torito and his Barbara this morning. Karen answers questions for Torito regarding his care needs. Barbara and Torito both state that they have been happy with his care here in the hospital. They state care has been good in the ER and in CCU. Barbara is concerned about Torito's history of bladder cancer and the treatment. Barbara is concerned that Torito may have aspirated when doing the oral treatment plan required for the sores in his mouth secondary to his medicine given for his cancer. I did suggest that Barbara have this discussion with Dr. Peacock at Torito's follow-up appt. later this month. Both deny questions or concerns regarding hospital care at this time.
[2021-06-16] MEDS ORDERED: AMOX TR-K CLV1 EACH PO ×2 (12:05)
[2021-10-02] MEDS ORDERED: KEPPRA500 MG PO (10:39)
[2021-10-02] MEDS ORDERED: ONDANSETRON HCL4 MG PO (10:40)
[2021-10-02] MEDS ORDERED: ALDACTONE50 MG PO (10:41)
[2021-10-02] MEDS ORDERED: SILDENAFIL20 MG PO (10:41)
[2021-10-24] MEDS ORDERED: SPIRONOLACTONE50 MG PO (07:10)
[2021-10-24] MEDS ORDERED: PROTONIX40 MG PO (07:11)
== END 2021-06-16 12:58 | disposition home or self-care (01) ==
LOC: ED 22:31 → CCU 22:33 → MS 06-15 11:15
PROVIDERS: ADMIT Internal Medicine; ATTEND Internal Medicine
DX: J69.0 Pneumonitis due to inhalation of food and vomit (principal); J84.9 Interstitial pulmonary disease, unspecified; I12.9 Hypertensive chronic kidney disease with stage 1 through stage 4 chronic kidney disease, or unspecified chronic kidney disease; N18.32 Chronic kidney disease, stage 3b; C67.9 Malignant neoplasm of bladder, unspecified; E78.5 Hyperlipidemia, unspecified; K21.9 Gastro-esophageal reflux disease without esophagitis; E03.9 Hypothyroidism, unspecified; I65.23 Occlusion and stenosis of bilateral carotid arteries; G40.909 Epilepsy, unspecified, not intractable, without status epilepticus; H40.9 Unspecified glaucoma; Z87.891 Personal history of nicotine dependence; Z86.73 Personal history of transient ischemic attack (TIA), and cerebral infarction without residual deficits; Z90.5 Acquired absence of kidney; Z79.82 Long term (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; Z20.822 Contact with and (suspected) exposure to COVID-19
CPT/HCPCS: 36415; 71045; 80048; 80053; 81001; 83605; 85025; 87040; 92610; 93005; 93010; 94640; 94668; 94760; 96372; 96374; 96375; 96376; 97110; 97162; 99285-25; A9270; C9803; G0378; J0295; J1650; J2543; J7040; J7121; U0003

== ENCOUNTER 2021-06-30 18:12 | Emergency (ER) | payer MEDICARE, OTHER ==
[~2021-06-30] VITALS: Ht 170.2 cm; Wt 70.8 kg
[~2021-06-30 18:12] MED LIST changes: +AMOX TR-K CLV1 EACH PO; +TYLENOL325 MG PO
--- OUTSIDE RECORDS SUMMARY | 2021-06-30 18:14 | XMS ---
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 Care History Medical/Surgical 04/07/2021 [facility] Patient has appointment with Dr. Palma on 04/08/2021. Note has been sent to Dr. Winkler office to get patient scheduled for Endoscopy. 03/17/2021 [facility] - Patient is currently established with [facility]. If patient is seen in the ED during business hours. Please contact CHWs at [facility]. Care Recommendation: If this patient [...] exercise clinical judgment when providing care. 03/17/2021 [facility] Seen by Luis on 03/07/2021 for colon cancer findings. Follow up visit with Dr. Peacock on 04/02/2021 E.DRani VISIT COUNT (12 MO.) [address] [facility] TOTAL 8 NOTE: Visits indicate total known visits. ED/UCC VISIT TRACKING (12 MO.) 06/30/2021 18:13 [facility] [place] TYPE: Emergency COMPLAINT: - CHEST PAIN 06/14/2021 22:32 [facility] [place] TYPE: Emergency COMPLAINT: - BODY TRIMMERS 04/26/2021 19:08 [facility] [place] TYPE: Emergency COMPLAINT: - COUGH, SHORTNESS OF BREATH DIAGNOSES: - Personal history of nicotine dependence - Allergy status to other drugs, medicaments and biological substances - Contact with and (suspected) exposure to COVID- - Cough, unspecified - Personal history of malignant neoplasm of prostate - Essential (primary) hypertension - COUGH, UNSPECIFIED - utilization coordinator (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 - Acute bronchitis, unspecified - Personal history of transient ischemic attack (TIA), and cerebral infarction without residual deficits - Personal history of other malignant neoplasm of kidney - Other human resource statistician (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 04/07/2021 15:25 [facility] [place] TYPE: Emergency COMPLAINT: - SWALLOWING PROBLEM DIAGNOSES: - Other specified symptoms and signs involving the circulatory and respiratory systems - Gastric contents in pharynx causing asphyxiation, initial encounter - Other penitentiary (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 - Personal history of malignant neoplasm of prostate - FPC (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 - Food in [...] replacement therapy - Epigastric pain - Other human resource statistician (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 - Essential (primary) hypertension - Personal history of malignant neoplasm of prostate - Personal history of other malignant neoplasm of kidney - Other chest pain - Allergy status to other drugs, medicaments and biological substances - FPC (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 - Personal history of nicotine dependence - Personal history of transient ischemic attack (TIA), and cerebral infarction without residual deficits 03/15/2021 13:[address] [facility] [place] TYPE: Emergency COMPLAINT: - POSS STROKE 10/10/2020 18:35 [facility] [place] TYPE: Emergency COMPLAINT: - RECTAL BLEEDING DIAGNOSES: - Other penitentiary (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 - Allergy status to [...] - Personal history of nicotine dependence - utilization coordinator (current) use of opiate analgesic - Other human resource statistician (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 - Laceration without foreign body of other part of head, initial encounter - Fall on same level from slipping, tripping and stumbling with subsequent striking against unspecified object, initial encounter - Essential (primary) hypertension INPATIENT VISIT TRACKING (12 MO.) 06/14/2021 22:33 [facility] [place] TYPE: Observation COMPLAINT: - SEPSIS, PNEUMONIA DIAGNOSES: - Occlusion and stenosis of bilateral carotid arteries - Chronic kidney disease, stage 3b - Interstitial pulmonary disease, unspecified - Acquired absence of kidney - Unspecified glaucoma - Hypothyroidism, unspecified - Personal history of transient ischemic attack (TIA), and cerebral infarction without residual deficits - Epilepsy, unspecified, not intractable, without status epilepticus - Malignant neoplasm of bladder, unspecified - utilization coordinator (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 - Hyperlipidemia, unspecified - Personal history of nicotine dependence - Gastro-esophageal reflux disease without esophagitis - Pneumonitis due to inhalation of food and vomit - Hypertensive chronic kidney disease with stage 1 through stage 4 chronic kidney disease, or unspecified chronic kidney disease - Contact with and (suspected) exposure to COVID-19 03/15/2021 17:24 [facility] TYPE: Medical Surgical COMPLAINT: - CVA DIAGNOSES: - Essential (primary) hypertension - Hypothyroidism, unspecified - Allergy status to other antibiotic agents - Epilepsy, unspecified, not intractable, without status epilepticus - Other penitentiary (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 - Other specified postprocedural states - Gastro-esophageal reflux disease without esophagitis - Personal history of nicotine dependence - Personal history of malignant neoplasm of prostate - Acquired absence of kidney - Personal history of other malignant neoplasm of kidney - Contact with and (suspected) exposure to COVID-19 - Hemiplegia and hemiparesis following cerebral infarction affecting right dominant side - Acquired absence of other genital organ(s) - Allergy status to other drugs, medicaments and biological substances 11/25/2020 07:11 [facility] TYPE: Gastroenterology DIAGNOSES: - Malignant neoplasm of ascending colon - Acquired absence of other specified parts of digestive tract [email or web address]
--- NOTE | 2021-07-02 19:07 | EKG ---
[facility] [address] [place] [address] Signed Normal sinus rhythm Left axis deviation Minimal voltage criteria for LVH, may be normal variant ( R in aVL ) Septal infarct , age undetermined Abnormal ECG When compared with ECG of 14-JUN-2021 22:58, No significant change was found Confirmed by FAUSTNIO MARQUIS MD ([id number]) on 07/02/2021 7:07:47 PM Electronically Signed By: FAUSTINO MARQUIS MD 07/02/21 1907 PATIENT NAME: PAWEL HERRERA Electrocardiogram DATE OF : 33 PHYSICIAN: FAUSTINO MARQUIS MD REPORT #: [id number] REPORT IS CONFIDENTIAL AND NOT TO BE RELEASED WITHOUT AUTHORIZATION
== END 2021-06-30 21:00 | disposition home or self-care (01) ==
LOC: ED 18:12
DX: R07.89 Other chest pain (principal); Z86.73 Personal history of transient ischemic attack (TIA), and cerebral infarction without residual deficits; I10 Essential (primary) hypertension; Z85.46 Personal history of malignant neoplasm of prostate; Z85.528 Personal history of other malignant neoplasm of kidney; Z85.038 Personal history of other malignant neoplasm of large intestine; Z87.891 Personal history of nicotine dependence; Z88.8 Allergy status to other drugs, medicaments and biological substances; Z79.899 Other long term (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; Z79.82 Long term (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
CPT/HCPCS: 36415; 71045; 80053; 83735; 84484; 85025; 85610; 85730; 93005; 93010; 99285-25

== ENCOUNTER 2021-08-19 04:27 | Emergency (ER) | payer MEDICARE, OTHER ==
[~2021-08-19] VITALS: Ht 170.2 cm; Wt 68.0 kg
--- OUTSIDE RECORDS SUMMARY | 2021-08-19 04:30 | XMS ---
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 Care History Medical/Surgical 04/07/2021 [facility] Patient has appointment with Dr. Palma on 04/08/2021. Note has been sent to Dr. Winkler office to get patient scheduled for Endoscopy. 03/17/2021 [facility] - Patient is currently established with [facility]. If patient is seen in the ED during business hours. Please contact CHWs at [facility]. Care Recommendation: If this patient has had 5 or more Emergency Department visits in the last 12 months.\T\nbsp; Patient will require education on the scope and purpose of the ED as an acute care provider not a Primary Care Provider and should not be utilized for chronic conditions.\T\nbsp; These are guidelines and the provider should exercise clinical judgment when providing care. 03/17/2021 [facility] Seen by Luis on 03/07/2021 for colon cancer findings. Follow up visit with Dr. Peacock on 04/02/2021 E.Herbert VISIT COUNT (12 MO.) 8 [facility] TOTAL 8 NOTE: Visits indicate total known visits. ED/UCC VISIT TRACKING (12 MO.) 08/19/2021 04:28 [facility] TYPE: Emergency COMPLAINT: - BACK PAIN 06/30/2021 18:13 [facility] TYPE: Emergency COMPLAINT: - CHEST PAIN DIAGNOSES: - M[facility] (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 - Personal history of transient ischemic attack (TIA), and cerebral infarction without residual deficits - Allergy status to other drugs, medicaments and biological substances - Personal history of nicotine dependence - Personal history of other malignant neoplasm of large intestine - Personal history of other malignant neoplasm of kidney - Personal history of malignant neoplasm of prostate - Other chest pain - Essential (primary) hypertension - Other adjunct faculty for medical terminology (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 06/14/2021 22:32 [facility] TYPE: Emergency [...] Essential (primary) hypertension - COUGH, UNSPECIFIED - MCC (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 - Acute bronchitis, unspecified - Personal history of transient ischemic attack (TIA), and cerebral infarction without residual deficits - Personal history of other malignant neoplasm of kidney - Other prison (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 04/07/2021 15:25 [facility] TYPE: Emergency COMPLAINT: - SWALLOWING PROBLEM DIAGNOSES: - Other specified symptoms and signs involving the circulatory and respiratory systems - Gastric contents in pharynx causing asphyxiation, initial encounter - Other adjunct faculty for medical terminology (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 - Personal history of malignant neoplasm of prostate - marine oil terminal superintendent (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 - Food in [...] replacement therapy - Epigastric pain - Other prison (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 - Essential (primary) hypertension - Personal history of malignant neoplasm of prostate - Personal history of other malignant neoplasm of kidney - Other chest pain - Allergy status to other drugs, medicaments and biological substances - marine oil terminal superintendent (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 - Personal history of nicotine dependence - Personal history of transient ischemic attack (TIA), and cerebral infarction without residual deficits 03/15/2021 13:15 [facility] TYPE: Emergency COMPLAINT: - POSS STROKE 10/10/2020 18:35 [facility] TYPE: Emergency COMPLAINT: - RECTAL BLEEDING DIAGNOSES: - Other adjunct faculty for medical terminology (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 - Allergy status to other antibiotic agents - Essential (primary) hypertension - Personal history of nicotine dependence - Hemorrhage of anus and rectum - Allergy status to other drugs, medicaments and biological substances INPATIENT VISIT TRACKING (12 MO.) 06/14/2021 22:33 [facility] TYPE: Observation COMPLAINT: - SEPSIS, PNEUMONIA [...] - Malignant neoplasm of bladder, unspecified - MCC (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 - Hyperlipidemia, unspecified [...] not intractable, without status epilepticus - Other prison (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 - Other specified postprocedural [...] drugs, medicaments and biological substances 11/25/2020 07:11 [facility] TYPE: Gastroenterology DIAGNOSES: - Malignant neoplasm of ascending colon - Acquired absence of other specified parts of digestive tract [id number]
[2021-08-19] MEDS ORDERED: LIDODERM1 EACH TOP (05:52)
== END 2021-08-19 06:03 | disposition home or self-care (01) ==
LOC: ED 04:27
DX: M54.6 Pain in thoracic spine (principal); M54.50 Low back pain, unspecified; I10 Essential (primary) hypertension; Z87.891 Personal history of nicotine dependence; Z88.8 Allergy status to other drugs, medicaments and biological substances; Z88.1 Allergy status to other antibiotic agents; Z79.899 Other long term (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; Z79.82 Long term (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
CPT/HCPCS: 72070; 72100; 99283-25; A9270

== ENCOUNTER 2021-08-25 10:11 | Inpatient (IN) | payer MEDICARE, OTHER ==
[~2021-08-25] VITALS: Ht 170.2 cm; Wt 69.0 kg
[~2021-08-25 10:11] MED LIST changes: +LIDODERM1 EACH TOP
--- OUTSIDE RECORDS SUMMARY | 2021-08-25 10:14 | XMS ---
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 Care History Medical/Surgical 04/07/2021 [facility] Patient has appointment with Dr. Palma on 04/08/2021. Note has been sent to Dr. Winkler office to get patient scheduled for Endoscopy. 03/17/2021 [facility] - Patient is currently established with [facility]. If patient is seen in the ED during business hours. Please contact CHWs at [facility]. Care Recommendation: If this patient has had 5 or more Emergency Department visits in the last 12 months.\T\nbsp; Patient will require education on the scope and purpose of the ED as an acute care provider not a Primary Care Provider and should not be utilized for chronic conditions.\T\nbsp; These are guidelines and the provider should exercise clinical judgment when providing care. 03/17/2021 [facility] Seen by Luis on 03/07/2021 for colon cancer findings. Follow up visit with Dr. Peacock on 04/02/2021 E.DRani VISIT COUNT (12 MO.) [address] [facility] TOTAL 9 NOTE: Visits indicate total known visits. 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 owner operator truck driver (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 - Low back pain, unspecified - Allergy status to other antibiotic agents - Essential (primary) hypertension 06/30/2021 18:13 [facility] TYPE: Emergency COMPLAINT: - CHEST PAIN DIAGNOSES: - prison (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 - Personal history [...] pain - Essential (primary) hypertension - Other intermediate (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 06/14/2021 22:32 [facility] [...] Essential (primary) hypertension - COUGH, UNSPECIFIED - intermodal owner operator truck driver (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 - Acute bronchitis, unspecified - Personal history of transient ischemic attack (TIA), and cerebral infarction without residual deficits - Personal history of other malignant neoplasm of kidney - Other intermediate (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 04/07/2021 15:25 [facility] TYPE: Emergency COMPLAINT: - SWALLOWING PROBLEM DIAGNOSES: - Other specified symptoms and signs involving the circulatory and respiratory systems - Gastric contents in pharynx causing asphyxiation, initial encounter - Other intermediate designer (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 - Personal history of [...] replacement therapy - Epigastric pain - Other intermediate (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 - Essential (primary) hypertension - Personal history of malignant neoplasm of prostate - Personal history of other malignant neoplasm of kidney - Other chest pain - Allergy status to other drugs, medicaments and biological substances - intermodal owner operator truck driver (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 - Personal history of nicotine dependence - Personal history of transient ischemic attack (TIA), and cerebral infarction without residual deficits 03/15/2021 13:15 [facility] TYPE: Emergency COMPLAINT: - POSS STROKE 10/10/2020 18:35 [facility] TYPE: Emergency COMPLAINT: - RECTAL BLEEDING DIAGNOSES: - Other intermediate designer (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 - Allergy status to [...] - Malignant neoplasm of bladder, unspecified - intermodal owner operator truck driver (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 - Hyperlipidemia, unspecified [...] not intractable, without status epilepticus - Other intermediate designer (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 - Other specified postprocedural [...] drugs, medicaments and biological substances 11/25/2020 07:11 [facility] TYPE: Gastroenterology DIAGNOSES: - Malignant neoplasm of ascending colon - Acquired absence of other specified parts of digestive tract [email or web address]
[2021-08-25] MEDS ORDERED: NITROGLYCERIN0.4 MG SL (17:03)
[2021-08-25] MEDS ORDERED: FAMOTIDINE20 MG PO (17:09)
[2021-08-25] MEDS ORDERED: SILDENAFIL20 MG PO (17:10)
[2021-08-26] MEDS ORDERED: ASPERCREME76.5 GM TOP (09:05)
--- NOTE | 2021-08-27 18:15 | EKG ---
[facility] [address] [place] [address] Signed Normal sinus rhythm Left axis deviation Abnormal ECG When compared with ECG of 30-JUN-2021 18:16, No significant change was found Confirmed by FAUSTINO MARQUIS MD ([id number]) on 08/27/2021 6:15:53 PM Electronically Signed By: FAUSTINO MARQUIS MD 08/27/211814 PATIENT NAME: PAWEL HERRERA Electrocardiogram DATE OF : 33 PHYSICIAN: FAUSTINO MARQUIS MD REPORT #: [id number] REPORT IS CONFIDENTIAL AND NOT TO BE RELEASED WITHOUT AUTHORIZATION
[2021-08-28] MEDS ORDERED: CEPHALEXIN500 MG PO (13:17)
== END 2021-08-28 14:30 | disposition home or self-care (01) | DRG 683 ==
LOC: ED 10:11 → MS 12:32
PROVIDERS: ADMIT Internal Medicine; ATTEND Internal Medicine
DX: N17.9 Acute kidney failure, unspecified (principal); N30.00 Acute cystitis without hematuria; Z16.24 Resistance to multiple antibiotics; N18.32 Chronic kidney disease, stage 3b; K21.9 Gastro-esophageal reflux disease without esophagitis; E78.5 Hyperlipidemia, unspecified; E03.9 Hypothyroidism, unspecified; G40.909 Epilepsy, unspecified, not intractable, without status epilepticus; B96.20 Unspecified Escherichia coli [E. coli] as the cause of diseases classified elsewhere; K76.89 Other specified diseases of liver; Z20.822 Contact with and (suspected) exposure to COVID-19; Z88.1 Allergy status to other antibiotic agents; Z88.8 Allergy status to other drugs, medicaments and biological substances; I12.9 Hypertensive chronic kidney disease with stage 1 through stage 4 chronic kidney disease, or unspecified chronic kidney disease; Z86.73 Personal history of transient ischemic attack (TIA), and cerebral infarction without residual deficits; R13.12 Dysphagia, oropharyngeal phase; Z85.51 Personal history of malignant neoplasm of bladder; Z85.038 Personal history of other malignant neoplasm of large intestine; Z85.528 Personal history of other malignant neoplasm of kidney; Z85.46 Personal history of malignant neoplasm of prostate; Z79.82 Long term (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; Z79.899 Other long term (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; K86.89 Other specified diseases of pancreas; K66.8 Other specified disorders of peritoneum
CPT/HCPCS: 36415; 71045; 74176; 80048; 80053; 81001; 85025; 85060; 87088; 87502; 93005; 93010; 97110; 97116; 97161; A9270; J0696; J1650; J2405; J7030; J7121; U0003

== ENCOUNTER 2021-08-31 18:00 | Inpatient (IN) | payer MEDICARE, OTHER ==
[~2021-08-31] VITALS: Ht 170.2 cm; Wt 67.0 kg
[~2021-08-31 18:00] MED LIST changes: +ASPERCREME76.5 GM TOP; +CEPHALEXIN500 MG PO; +FAMOTIDINE20 MG PO; +NITROGLYCERIN0.4 MG SL
--- OUTSIDE RECORDS SUMMARY | 2021-08-31 18:02 | XMS ---
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 Care History Medical/Surgical 04/07/2021 [facility] Patient has appointment with Dr. Palma on 04/08/2021. Note has been sent to Dr. Winkler office to get patient scheduled for Endoscopy. 03/17/2021 [facility] - Patient is currently established with [facility]. If patient is seen in the ED during business hours. Please contact CHWs at [facility]. Care Recommendation: If this patient [...] exercise clinical judgment when providing care. 03/17/2021 [facility] Seen by Luis on 03/07/2021 for colon cancer findings. Follow up visit with Dr. Peacock on 04/02/2021 E.DRani VISIT COUNT (12 MO.) [address] [facility] TOTAL 10 NOTE: Visits indicate total known visits. ED/UCC VISIT TRACKING (12 MO.) 08/31/2021 18:01 [facility] TYPE: Emergency COMPLAINT: - VOMITING 08/25/2021 10:12 [facility] TYPE: Emergency COMPLAINT: - WEAKNESS, POSS UTI 08/19/2021 04:28 [facility] TYPE: Emergency COMPLAINT: - BACK PAIN DIAGNOSES: - Pain in thoracic spine - Personal history of nicotine dependence - Other shelter (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 - Allergy status to other drugs, medicaments and biological substances - long term care administrator (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 - Low back pain, unspecified - Allergy status to other antibiotic agents - Essential (primary) hypertension 06/30/2021 18:13 [facility] TYPE: Emergency COMPLAINT: - CHEST PAIN DIAGNOSES: - retirement (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 - Personal history [...] pain - Essential (primary) hypertension - Other shelter (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 06/14/2021 22:32 [facility] [...] Essential (primary) hypertension - COUGH, UNSPECIFIED - long term care administrator (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 - Acute bronchitis, unspecified - Personal history of transient ischemic attack (TIA), and cerebral infarction without residual deficits - Personal history of other malignant neoplasm of kidney - Other shelter (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 04/07/2021 15:25 [facility] TYPE: Emergency COMPLAINT: - SWALLOWING PROBLEM DIAGNOSES: - Other specified symptoms and signs involving the circulatory and respiratory systems - Gastric contents in pharynx causing asphyxiation, initial encounter - Other shelter (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 - Personal history of malignant neoplasm of prostate - retirement (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 - Food in pharynx causing other injury, initial encounter - Allergy status to other drugs, medicaments and biological substances - Personal history of transient ischemic attack (TIA), and cerebral infarction without residual deficits - Personal history of nicotine dependence - Essential (primary) hypertension - Hormone replacement therapy - Personal history of other malignant neoplasm of kidney 04/05/2021 15:10 [facility] TYPE: Emergency COMPLAINT: - CHEST PAIN DIAGNOSES: - Hormone replacement therapy - Epigastric pain - Other intermediate manager (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 - Essential (primary) hypertension - Personal history of malignant neoplasm of prostate - Personal history of other malignant neoplasm of kidney - Other chest pain - Allergy status to other drugs, medicaments and biological substances - retirement (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 - Personal history [...] biological substances INPATIENT VISIT TRACKING (12 MO.) 08/25/2021 12:[address] [facility] [place] TYPE: Medical Surgical COMPLAINT: - DANITZA, CYSTITIS DIAGNOSES: - Hyperlipidemia, unspecified - Unspecified Escherichia coli [E. coli] as the cause of diseases classified elsewhere - Dysphagia, oropharyngeal phase - Personal history of other malignant neoplasm of large intestine - Unspecified Escherichia coli [E. coli] as the cause of diseases classified elsewhere - Personal history of malignant neoplasm of prostate - Allergy status to other antibiotic agents - Personal history of transient ischemic attack (TIA), and cerebral infarction without residual deficits - Other specified diseases of pancreas - Hypothyroidism, unspecified - Acute cystitis without hematuria - Other specified disorders of peritoneum - Personal history of transient ischemic attack (TIA), and cerebral infarction without residual deficits - Other shelter (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 - Resistance to multiple antibiotics - Acute cystitis without hematuria - Other specified diseases of liver - retirement (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 - Epilepsy, unspecified, not intractable, without status epilepticus - Contact with and (suspected) exposure to COVID-19 - Personal history of malignant neoplasm of prostate - Gastro-esophageal reflux disease without esophagitis - Contact with and (suspected) exposure to COVID-19 - Personal history of malignant neoplasm of bladder - Other specified diseases of liver - Allergy status to other drugs, medicaments and biological substances - Hypertensive chronic kidney disease with stage 1 through stage 4 chronic kidney disease, or unspecified chronic kidney disease - Other specified diseases of pancreas - Chronic kidney disease, stage 3b - Personal history of malignant neoplasm of bladder - Other specified disorders of peritoneum - Gastro-esophageal reflux disease without esophagitis - Personal history of other malignant neoplasm of large intestine - Personal history of other malignant neoplasm of kidney - retirement (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 - Hyperlipidemia, unspecified - Hypertensive chronic kidney disease with stage 1 through stage 4 chronic kidney disease, or unspecified chronic kidney disease - Allergy status to other antibiotic agents - Acute kidney failure, unspecified - Other intermediate manager (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 - Allergy status to other drugs, medicaments and biological substances - Chronic kidney disease, stage 3b - Epilepsy, unspecified, not intractable, without status epilepticus - Dysphagia, oropharyngeal phase - Hypothyroidism, unspecified - Resistance to multiple antibiotics - Personal history of other malignant neoplasm of kidney 06/14/2021 22:33 [facility] TYPE: Observation [...] - Malignant neoplasm of bladder, unspecified - retirement (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 - Hyperlipidemia, unspecified [...] intractable, without status epilepticus - Other intermediate manager (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 - Other specified postprocedural [...] drugs, medicaments and biological substances 11/25/2020 07:11 [facility] TYPE: Gastroenterology DIAGNOSES: - Malignant neoplasm of ascending colon - Acquired absence of other specified parts of digestive tract [email or web address]
[2021-09-03] MEDS ORDERED: LEVETIRACETAM500 MG PO (08:53)
== END 2021-09-03 10:35 | disposition home or self-care (01) | DRG 392 ==
LOC: ED 18:00 → MS 18:02 → CCU 09-02 15:06
PROVIDERS: ADMIT Internal Medicine; ATTEND Internal Medicine
DX: K29.00 Acute gastritis without bleeding (principal); N17.9 Acute kidney failure, unspecified; N39.0 Urinary tract infection, site not specified; N18.4 Chronic kidney disease, stage 4 (severe); Z20.822 Contact with and (suspected) exposure to COVID-19; I12.9 Hypertensive chronic kidney disease with stage 1 through stage 4 chronic kidney disease, or unspecified chronic kidney disease; D49.0 Neoplasm of unspecified behavior of digestive system; D13.6 Benign neoplasm of pancreas; K21.9 Gastro-esophageal reflux disease without esophagitis; G40.909 Epilepsy, unspecified, not intractable, without status epilepticus; I65.23 Occlusion and stenosis of bilateral carotid arteries; E03.9 Hypothyroidism, unspecified; Z85.038 Personal history of other malignant neoplasm of large intestine; Z86.73 Personal history of transient ischemic attack (TIA), and cerebral infarction without residual deficits; Z85.46 Personal history of malignant neoplasm of prostate; Z85.51 Personal history of malignant neoplasm of bladder; Z85.53 Personal history of malignant neoplasm of renal pelvis; Z87.891 Personal history of nicotine dependence; Z87.81 Personal history of (healed) traumatic fracture; Z90.5 Acquired absence of kidney; Z98.890 Other specified postprocedural states; Z88.1 Allergy status to other antibiotic agents; Z88.8 Allergy status to other drugs, medicaments and biological substances; Z79.82 Long term (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; Z79.899 Other long term (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
CPT/HCPCS: 36415; 70450; 76705; 78227; 80048; 80053; 81001; 83690; 83735; 84484; 85025; 87502; 96375; 96376; A9270; A9537; C9113; C9803; G0378; J0690; J1953; J2405; J2805; J3480; J7030; J7060; J7121; U0003

== ENCOUNTER 2021-09-26 21:18 | Emergency (ER) | payer OTHER ==
[~2021-09-26] VITALS: Ht 170.2 cm; Wt 67.1 kg
[~2021-09-26 21:18] MED LIST changes: +LEVETIRACETAM500 MG PO
--- OUTSIDE RECORDS SUMMARY | 2021-09-26 21:24 | XMS ---
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 Care History Medical/Surgical 04/07/2021 [facility] Patient has appointment with Dr. Palma on 04/08/2021. Note has been sent to Dr. Winkler office to get patient scheduled for Endoscopy. 03/17/2021 [facility] - Patient is currently established with [facility]. If patient is seen in the ED during business hours. Please contact CHWs at [facility]. Care Recommendation: If this patient has had 5 or more Emergency Department visits in the last 12 months.\T\nbsp; Patient will require education on the scope and purpose of the ED as an acute care provider not a Primary Care Provider and should not be utilized for chronic conditions.\T\nbsp; These are guidelines and the provider should exercise clinical judgment when providing care. 03/17/2021 [facility] Seen by Luis on 03/07/2021 for colon cancer findings. Follow up visit with Dr. Peacock on 04/02/2021 E.DRani VISIT COUNT (12 MO.) [address] [facility] TOTAL 12 NOTE: Visits indicate total known visits. ED/UCC VISIT TRACKING (12 MO.) 09/26/2021 21:18 [facility] [place] TYPE: Emergency COMPLAINT: - ABDOMINAL PAIN 09/24/2021 04:23 [facility] [place] TYPE: Emergency COMPLAINT: - FALL, HEAD INJ DIAGNOSES: - Other mcc (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 - Unspecified dementia without behavioral disturbance - Unspecified injury of head, initial encounter - Allergy status to other drugs, medicaments and biological substances - Allergy status to other antibiotic agents - Personal history of transient ischemic attack (TIA), and cerebral infarction without residual deficits - Unspecified fall, initial encounter - penitentiary (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 - Essential (primary) hypertension - Bathroom of unspecified non-institutional (private) residence as the place of occurrence of the external cause - Personal history of nicotine dependence 08/31/2021 18:01 [facility] [place] TYPE: Emergency COMPLAINT: - VOMITING 08/25/2021 10:12 [facility] [place] TYPE: Emergency COMPLAINT: - WEAKNESS, POSS UTI 08/19/2021 04:28 [facility] [place] TYPE: Emergency COMPLAINT: - BACK PAIN DIAGNOSES: - Pain in thoracic spine - Personal history of nicotine dependence - Other long term care administrator (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 - Allergy status to other drugs, medicaments and biological substances - penitentiary (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 - Low back pain, unspecified - Allergy status to other antibiotic agents - Essential (primary) hypertension 06/30/2021 18:13 [facility] [place] TYPE: Emergency COMPLAINT: - CHEST PAIN DIAGNOSES: - 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 - [...] pain - Essential (primary) hypertension - Other mcc (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 06/14/2021 22:32 [facility] [...] Essential (primary) hypertension - COUGH, UNSPECIFIED - penitentiary (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 - Acute bronchitis, unspecified - Personal history of transient ischemic attack (TIA), and cerebral infarction without residual deficits - Personal history of other malignant neoplasm of kidney - Other long term care administrator (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 04/07/2021 15:25 [facility] [place] TYPE: Emergency COMPLAINT: - SWALLOWING PROBLEM DIAGNOSES: - Other specified symptoms and signs involving the circulatory and respiratory systems - Gastric contents in pharynx causing asphyxiation, initial encounter - Other mcc (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 - Personal history of malignant neoplasm of prostate - penitentiary (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 - Food in [...] replacement therapy - Epigastric pain - Other long term care administrator (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 - Essential (primary) hypertension - Personal history of malignant neoplasm of prostate - Personal history of other malignant neoplasm of kidney - Other chest pain - Allergy status to other drugs, medicaments and biological substances - 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 - Personal history of nicotine dependence - Personal history of transient ischemic attack (TIA), and cerebral infarction without residual deficits 03/15/2021 13:15 [facility] [place] TYPE: Emergency COMPLAINT: - POSS STROKE 10/10/2020 18:35 [facility] TYPE: Emergency COMPLAINT: - RECTAL BLEEDING DIAGNOSES: - Other mcc (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 - Allergy status to other antibiotic agents - Essential (primary) hypertension - Personal history of nicotine dependence - Hemorrhage of anus and rectum - Allergy status to other drugs, medicaments and biological substances INPATIENT VISIT TRACKING (12 MO.) 09/02/2021 14:53 [facility] [place] TYPE: Critical Care COMPLAINT: - NAUSEA AND VOMITING DIAGNOSES: - Personal history of malignant neoplasm of bladder - 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 - Contact with and (suspected) exposure to COVID-19 - Neoplasm of unspecified behavior of digestive system - Neoplasm of unspecified behavior of digestive system - Hypothyroidism, unspecified - Personal history of (healed) traumatic fracture - Epilepsy, unspecified, not intractable, without status epilepticus - Personal history of (healed) traumatic fracture - Chronic kidney disease, stage 4 (severe) - Personal history of malignant neoplasm of renal pelvis - Occlusion and stenosis of bilateral carotid arteries - Gastro-esophageal reflux disease without esophagitis - Hypothyroidism, unspecified - Personal history of malignant neoplasm of prostate - Allergy status to other antibiotic agents - Urinary tract infection, site not specified - Urinary tract infection, site not specified - Acute gastritis without bleeding - Allergy status to other antibiotic agents - Acute kidney failure, unspecified - Chronic kidney disease, stage 4 (severe) - Nausea with vomiting, unspecified - Personal history of other malignant neoplasm of large intestine - Acute kidney failure, unspecified - Benign neoplasm of pancreas - Other mcc (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 - Occlusion and stenosis of bilateral carotid arteries - Contact with and (suspected) exposure to COVID-19 - Acquired absence of kidney - Hypertensive chronic kidney disease with stage 1 through stage 4 chronic kidney disease, or unspecified chronic kidney disease - Personal history of transient ischemic attack (TIA), and cerebral infarction without residual deficits - penitentiary (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 - Personal history of nicotine dependence - Allergy status to other drugs, medicaments and biological substances - Hypertensive chronic kidney disease with stage 1 through stage 4 chronic kidney disease, or unspecified chronic kidney disease - Personal history of malignant neoplasm of bladder - Personal history of malignant neoplasm of prostate - Acute gastritis without bleeding - Other specified postprocedural states - Other mcc (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 - Other specified postprocedural states - Epilepsy, unspecified, not intractable, without status epilepticus - Personal history of transient ischemic attack (TIA), and cerebral infarction without residual deficits - Gastro-esophageal reflux disease without esophagitis - Personal history of other malignant neoplasm of large intestine - Benign neoplasm of pancreas - Acquired absence of kidney - Allergy status to other drugs, medicaments and biological substances - Personal history of malignant neoplasm of renal pelvis - Personal history of nicotine dependence 08/25/2021 12:[address] 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 - Epilepsy, unspecified, [...] of other malignant neoplasm of kidney - penitentiary (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 - Hyperlipidemia, unspecified - Hypertensive chronic kidney disease with stage 1 through stage 4 chronic kidney disease, or unspecified chronic kidney disease - Allergy status to other antibiotic agents - Acute kidney failure, unspecified - Other long term care administrator (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 - Allergy status to [...] Malignant neoplasm of bladder, unspecified - 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
[2021-09-26] MEDS ORDERED: PERCOCET 5-3251 EACH PO (23:17)
== END 2021-09-27 00:25 | disposition home or self-care (01) ==
LOC: ED 21:18
DX: R10.10 Upper abdominal pain, unspecified (principal); I10 Essential (primary) hypertension; Z87.891 Personal history of nicotine dependence; Z88.8 Allergy status to other drugs, medicaments and biological substances; Z88.1 Allergy status to other antibiotic agents; Z79.899 Other long term (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; Z79.82 Long term (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
CPT/HCPCS: 36415; 80053; 85025; 96374; 99284-25; J2270; J7040

== ENCOUNTER 2021-10-03 06:10 | Day surgery (SDC) | payer MEDICARE, OTHER ==
[~2021-10-03] VITALS: Ht 170.2 cm; Wt 66.8 kg
[~2021-10-03 06:10] MED LIST changes: +ALDACTONE50 MG PO; +KEPPRA500 MG PO; +ONDANSETRON HCL4 MG PO
--- NOTE | 2021-10-03 06:45 | NUR ---
2 DAYS AGO FELL GOING TO BR TRIPPED OVER FLOWER BED. BRUISING AND CUT RLL. STATES DIDNT GO TO
--- NOTE | 2021-10-03 06:50 | NUR ---
STATES HE USES WALKER BUT WASNT USING WHEN HE FELL 2 DAYS AGO.
--- NOTE | 2021-10-03 06:53 | NUR ---
HAS SKIN ABRASION UPPER CENTER CHEST DOESNT KNOW HOW HE GOT. PURPLE BRUISINF L 3RD TOE. POSSIBLE BEGINNING CELULLITIS LLE.
--- NOTE | 2021-10-03 07:35 | NUR ---
REQUESTED URINAL ASSISTED WITH STANDING VOIDS 50 MLS YELLOW URINE SLIGHTLY CLOUDY ALSO MISSED URINAL. WASHED LEGS AND FEET CHANGED GOWN WARM BLANKET ON. COULD SEE PURPLISH BRUISING POSTERIOR HEEL.
--- NOTE | 2021-10-03 10:39 | NUR ---
10/03/21 1039 Latoya Alexander 0956- PT ARRIVES TO PACU NONAROUSABLE TO STIMULI WITH AN OPA IN PLACE. RESP EVEN AND UNLABORED. OXYGEN SAT HIGH 90'S TO 100% ON 6L VIA MASK. LEELEE EMPTIED. 0959- PT HAS A SCAB ON HIS RIGHT LEG FROM A PREVIOUS FALL. SCAB COVERED WITH MEDIHONEY AND ALLEVYN TO PREVENT BREAKDOWN WITH SCD IN PLACE. DR. HENDERSON IS AWARE. 1003- PT AROUSING AND GAGGING ON OPA. OPA REMOVED. OXYGEN MASK REPLACED. PT TRYING TO SIT UP IN BED. HEAD OF BED ELEVATED. 1006- PT TRYING TO REMOVE OXYGEN MASK. OXYGEN MASK REMOVED OXYGEN SAT IS IN THE HIGH 90'S TO 100% ON THE 6L AND IT IS IRRITATING THE PT. 1008- PT'S LEELEE DRAIN SITE GAUZE IS SATURATED AND BLOOD IS LEAKING DOWN THE PT'S SIDE. DR. HENDERSON NOTIFIED AND AT THE BEDSIDE TO ASSESS. DR. HENDERSON WANTS ANOTHER STITCH PLACED. 1015- PT ABLE TO URINATE INTO A URINAL. 1018- OR SETTING UP FOR ANOTHER STITCH. 1022- DR. HENDERSON AT THE BEDSIDE TO [facility] PT.
--- NOTE | 2021-10-03 11:21 | NUR ---
1100 PT CONTS TO SAY "I NEED TO PEE" HAS VOIDED 100MLS. BLADDER SCANNED FOR 700MLS. CALL TO DR HENDERSON AND TO STRAIGHT CATH. 600MLS YELLOW URINE. DCD CATH PT WILL NEED TO VOID ON OWN PRIOR TO DC. STRAIGHT CATH PER PROTOCAL WITH STERILE TECHNIQUE.
--- NOTE | 2021-10-03 12:22 | NUR ---
CALL TO [facility], REPORTED PATIENT NAUSEA. NEW ORDER 4MG ZOFRAN IV.
--- NOTE | 2021-10-03 12:23 | NUR ---
1210 C/O OF PAIN AND REQUEST PAIN PILL. HAS BEEN SLEEPING AWOKE FOR VS. GAVE APPLESAUCE PRIOR TO PAIN PILL. TAKING SIPS OF WATER.
--- NOTE | 2021-10-03 12:36 | NUR ---
RECIEVED ORDER FOR ZOFRAN FOR C/O NAUSEA AND GIVEN.
--- NOTE | 2021-10-03 13:03 | NUR ---
ADAMANT HE HAS TO VOID NOT ABLE TO USE URINAL IN BED STOOD AT BS STILL UNABLE TO VOID. BLADDER SCANNED FOR 74MLS. WARM BLANKET ON.
--- NOTE | 2021-10-03 14:00 | NUR ---
HAS VOIDED 100MLS X 2 IN PAST 1 HR.
--- NOTE | 2021-10-03 14:12 | NUR ---
HAS RATED PAIN 4/10. SOME NAUSEA STILL. DOING A LITTLE BETTER. STATES WEAK.
--- NOTE | 2021-10-03 15:03 | NUR ---
DR HENDERSON HAS BEEN IN TO TALK TO PT AND .
--- NOTE | 2021-10-03 15:28 | NUR ---
PT ARRIVED PER WC AND HAS BEEN DCD PER WC. WAS ABLE TO STAND AND STEP TO WC AND BED WITH ASSIST BOTH TIMES. ASSISTED WITH GETTING PT DRESSED AND TO WC. HAS STATED PAIN 10/10 BUT HAS BEEN ABLE TO REST. DOESNT MOVE ABOUT IN BED OR GRIMACE. DRAIN DRESSING CHANGED PRIOR TO DC. GIVEN 2 DRESSING IF SHE SHOULD NEED THEM. STATES SHE KNOWS HOW TO EMPTY DRAIN. RESIGHTED STEPS TO DO DRAIN. THIS EMPTIED 8MLS PRIOR TO DC. RLL CONTS TO HAVE FOAM DRESSING ON WHICH WAS PLACED IN PACU. ATTENDS PUT ON PT FOR RIDE HOME. URINAL GIVEN TO . WIFES BROTHER HERE TO ASSIST WITH GETTING PT INTO HOUSE.
[2021-10-04] MEDS ORDERED: OXYCODON-ACETA1 EAC2 PO (05:59)
--- NOTE | 2021-10-05 17:23 | OR ---
[facility] [address], [place] [address] Signed DATE OF OPERATION: 10/03/2021 SURGEON: Pawel Henderson MD PREOPERATIVE DIAGNOSES: 1. Extreme frailty. 2. Periportal and peripancreatic (lesser sac) adenopathy. 3. Hydropic gallbladder. 4. History of right colectomy for cancer, prostate cancer treatment, right renal resection and ureterectomy for genitourinary cancer. POSTOPERATIVE DIAGNOSES: 1. Severe cholecystitis and hydropic gallbladder without gallstones. 2. Pericholedochoadenopathy and lesser sac adenopathy. PROCEDURES: 1. Laparoscopic evaluation with laparoscopic cholecystectomy with intraoperative cholangiogram. 2. Surgeon-directed fluoroscopy. 3. Cup biopsy of periportal lymph node. 4. Core biopsy lesser sac adenopathy. 5. Cup biopsy of peritoneal nodule in supraumbilical area. ANESTHESIA: General endotracheal, Duyen Edwige, RADIOGRAPHY TECHNICIAN and 10 mL of 0.25% Marcaine with epinephrine. INDICATION: This 86-year-old white man is a patient of ALEXUS Pastrana. The patient has an extensive history of malignancies including right colectomy a year ago at [facility] in the [facility] for right colon cancer as well as right nephrectomy for renal cell carcinoma and ureterectomy as well as prostate cancer treatment. He has extreme frailty. He was evaluated by Dr. Peacock for consideration of adjuvant therapy when a CT scan had been performed showing significant periportal adenopathy, a hydropic gallbladder and a lesser sac adenopathy as well. He does not have associated ascites. The patient has diminished mental capacity and dementia essentially. He was referred by Dr. Peacock for biopsy of the periportal and lesser sac adenopathy to better guide options of management for palliative intervention. Electronically Signed By: PAWEL HENDERSON MD 10/05/21 1723 PATIENT NAME: PAWEL HERRERA OPERATIVE REPORT DATE OF : 33 REPORT #: [id number] PHYSICIAN: PAWEL HENDERSON MD PCP: DI JASON REPORT IS CONFIDENTIAL AND NOT TO BE RELEASED WITHOUT AUTHORIZATION [facility] [address], [place] [address] Signed I have discussed with the patient as well as his their intention for treatment depending on operative findings and they both anticipate participating in treatment if it can be considered beneficial. The patient was also had epigastric and right upper abdominal pain, which prompted CT scan as far as I can tell and with a hydropic gallbladder, the possibility that the gallbladder is the underlying cause of his pain has been reviewed with the patient and his as well. It is notable that he does not have intrahepatic ductal dilatation or anything to suggest obstruction of the common duct, but the gallbladder is notably hydropic on CT scan. Upon request of Dr. Peacock. I have offered laparoscopy, biopsy of the offending masses and other indicated procedures, possible to include cholecystectomy depending on findings. The patient to the extent he can and his completely understands the risk of operation including but not limited to bleeding, infection, anesthetic complications, and so on. FINDINGS: There was no sign of generalized carcinomatosis or ascites. There were few nodular changes in the supraumbilical area where previous hernia repair had been undertaken and where there exists a defect at this time. These nodular changes may more likely be related to the mesh that was implanted rather than carcinomatosis but the biopsies were obtained nevertheless. The gallbladder itself was considerably hydropic and very ischemic in its appearance and clearly with subacute cholecystitis. On that basis, cholecystectomy was deemed advisable and was performed. Cholangiogram did not show obstruction of the common bile duct or intrahepatic biliary system. For palliative intent alone, cholecystectomy as well indicated. There was periportal adenopathy in the region of the common bile duct. A firm dense mass was noted and cup biopsies were obtained. In the lesser sac was a bulky mass that appeared quite malignant for which separate biopsies were obtained. Hemostasis in relation to the lesser sac biopsy was afforded with several modalities and a drain was placed lateral to the left lateral segment of the liver for postoperative monitoring. He tolerated procedure well. BLOOD LOSS: Was about 75 mL in aggregate. DESCRIPTION OF PROCEDURE: The patient was brought to the operating room and given a general endotracheal anesthetic. Preoperative antibiotics were given. Sequential compression device Electronically Signed By: PAWEL HENDERSON MD 10/05/21 1723 PATIENT NAME: PAWEL HERRERA OPERATIVE REPORT DATE OF : 33 REPORT #: [id number] PHYSICIAN: PAWEL HENDERSON MD PCP: DI JASON REPORT IS CONFIDENTIAL AND NOT TO BE RELEASED WITHOUT AUTHORIZATION [address] [address] Signed stockings used and heparin subcutaneously administered. The abdomen is prepared with a chlorhexidine solution and draped sterilely. Palpation of the abdomen revealed no palpable mass. The patient has several incisions related to the laparoscopic cholecystectomy. An infraumbilical incision was made and using an open Kitty cannula technique, the abdomen was entered and intra-abdominal inspection showed no sign of ascites or carcinomatosis. Palpation in the superior aspect cephalad to the umbilicus revealed some nodular changes later found likely related to prior hernia repair with mesh. Pneumoperitoneum was achieved to a level of 14 mmHg with carbon dioxide gas. Intra-abdominal inspection showed no sign of ascites or carcinomatosis. The gallbladder was quite markedly hydropic and grayish in Green in appearance suggestive of subacute cholecystitis. The liver itself showed no evidence of metastatic disease . Three additional trocars were placed in usual configuration in the subxiphoid, right midclavicular, and right anterior axillary line. The distention of the gallbladder was such that it did obscure the periportal area to a degree. Given the findings of the gallbladder and mindful of primary intention for palliative intervention, it is deemed advisable that cholecystectomy be performed. The gallbladder was decompressed as this is markedly distended and the gallbladder grasped and elevated cephalad. A decompressive trocar was placed to allow for drainage of a relatively light yellow bile. The site was grasped in allowing for elevation of the gallbladder more fully. Examination in the pericholecystic area confirmed adenopathy in the region of the portal triad lateral to the duodenal sweep. The structures in the infundibulum appeared to be free of any encumbrance of neoplasm. Two. It appeared probable that cholecystectomy would be necessary to better define the periportal structures and adenopathy which would require biopsy. The infundibulum was grasped and retracted laterally and using blunt electrocautery dissection the triangle of Calot was dissected free ultimately identifying well the cystic duct. A cystic arterial branch was identified and doubly clipped. A clip was applied across the gallbladder cystic duct junction and a transverse choledochotomy made in the cystic duct. Egress of clear bile was noted. Using the White type cholangiocatheter intraoperative cholangiography was undertaken showing free flow of contrast in the biliary tree with prompt emptying into the duodenum. There was no sign of true encumbrance of the common bile duct or common hepatic duct. The cystic duct was triply clipped and divided. The gallbladder was dissected free in a retrograde fashion. Spillage of bile but no stones was noted as the posterior wall gallbladder was extremely thin. This was secured with an endo-loop. Once the gallbladder was dissected Electronically Signed By: PAWEL HENDERSON MD 10/05/21 1723 PATIENT NAME: PAWEL HERRERA OPERATIVE REPORT DATE OF : 33 REPORT #: [id number] PHYSICIAN: PAWEL HENDERSON MD PCP: DI JASON REPORT IS CONFIDENTIAL AND NOT TO BE RELEASED WITHOUT AUTHORIZATION [facility] [address], [place] [address] Signed free from the liver, it was placed in the endobag and extracted through the infraumbilical port, opened on the back table and found to have chronic inflammatory change. No sign of stone or neoplasm irrigation undertaken in the subhepatic space. Electrocautery was used for hemostasis. Some Tisseel fibrin glue was applied to the bed of the liver to assure hemostasis. Irrigation was undertaken and close inspection of the region of the common bile duct undertaken. Firm nodular tissue which was quite obviously neoplastic was separate and distinct from the 2nd portion of the duodenum and in its own mobile complex separate from the common duct itself. Consideration was made for a core biopsy using a biopsy gun device. However, a more appropriate approach appeared to be use of a cup biopsy. This was directed to the tissue in question, three segments of the tissue were excised. There was no untoward bleeding. Deeper biopsies were deemed inadvisable given the proximity to periportal structures. Examination was undertaken in the region of the head of the pancreas which was relatively inaccessible at this point. Further inspection cephalad to the lesser curve of the stomach was undertaken and the lesser sac tissue draped over an obvious mass was noted. This was opened and clips applied to the edges as necessary, revealing a very obvious and bulky mass consistent with neoplastic disease. This did not appear to be liver by any means. Through a separate small stab incision, two core biopsies were taken of the mass. Both had a small amount of bleeding, but the 2nd biopsy had rather persistent oozing and various maneuvers were made to secure this including electrocautery additional fibrin glue (Tisseel and a small amount of Surgicel). Ultimately, Erwin was applied with greatest benefit of hemostasis. Blood which had drained from this site had exited the lesser sac into the left lateral segment of the liver area and this was suctioned free, irrigated and found to be with good hemostasis. Given his frailty and so forth. A drain was placed. The right-sided trocar site directed over the site of the lesser sac biopsy with the tail of the drain taken to the left lateral segment of the liver. Irrigation was undertaken and biopsies taken of the peritoneal nodule cephalad to the umbilicus. The infraumbilical fascial incision was reapproximated with interrupted 0 Vicryl suture after removal of all the trocar, showing no sign of bleeding. A 10 mL of 0.25% Marcaine with epinephrine was injected locally. The skin was then closed with interrupted 3-0 Vicryl and Steri-Strips were applied. The patient was ultimately extubated and transferred to recovery room in good condition having suffered no complication. Sponge, needle and instrument counts were reported as correct x3 Electronically Signed By: PAWEL HENDERSON MD 10/05/21 6473 PATIENT NAME: PAWEL HERRERA OPERATIVE REPORT DATE OF : 33 REPORT #: [id number] PHYSICIAN: PAWEL HENDERSON MD PCP: DI JASON REPORT IS CONFIDENTIAL AND NOT TO BE RELEASED WITHOUT AUTHORIZATION [facility] [address] [facility] [place], [place] [address] Signed MD MACARIO Patrick/MODL /[id number] cc: ALEXUS Pastrana MD Copies: DI JASON ROBERT C MD ~ Electronically Signed By: PAWEL HENDERSON MD 10/05/21 1723 PATIENT NAME: PAWEL HERRERA OPERATIVE REPORT DATE OF : 33 REPORT #: [id number] PHYSICIAN: PAWEL HENDERSON MD PCP: DI JASON REPORT IS CONFIDENTIAL AND NOT TO BE RELEASED WITHOUT AUTHORIZATION
--- NOTE | 2021-10-07 15:18 | PATH ---
[facility] [address] [facility] [place], [place] [address] Signed SPECIMEN(S): A GALLBLADDER SPECIMEN(S): B PORTAL LYMPH NODE BIOPSY SPECIMEN(S): C LESSER SAC MASS BIOPSY SPECIMEN(S): D PERITONEAL BIOPSY SPECIMEN SOURCE: A. GALLBLADDER B. PORTAL LYMPH NODE BIOPSY C. LESSER SAC MASS BIOPSY D. PERITONEAL BIOPSY CLINICAL HISTORY: Abdominal mass. FINAL PATHOLOGIC DIAGNOSIS: A. 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 - Gallbladder epithelium is benign with features of chronic cholecystitis. - Negative for calculi. B. Portal lymph node biopsy: - Benign fibrosclerotic lymphoid tissue. - Negative for evidence of metastatic carcinoma. C. Lesser sac mass biopsy: - Invasive moderately differentiated adenocarcinoma. D. Peritoneal biopsy: - Benign soft tissue with focal fibrosclerosis, mixed inflammation, and foreign body-type reaction. - Negative for metastatic carcinoma. COMMENT: The metastatic tumor has histologic features consistent with the patient's history of colonic adenocarcinoma. Immunohistochemical stains are consistent with a Gastrointestinal origin including colorectal but not specifically diagnostic of colorectal origin as the CK20 is negative in both samples A and C. As part of [facility] Quality Improvement Program, this case was reviewed by another member of our pathology staff. Diagnostic notification to the office of Dr. Peacock is initiated by Dr. Arreola and will be recorded separately. JVR:alexis:C1NR PATIENT NAME: PAWEL HERRERA PATHOLOGY DATE OF : 33 REPORT #: [id number] PHYSICIAN: [facility] PCP: DI JASON REPORT IS CONFIDENTIAL AND NOT TO BE RELEASED WITHOUT AUTHORIZATION [facility] [address] [place], [place] [address] Signed MICROSCOPIC EXAMINATION: Histologic sections of all submitted blocks are examined by light microscopy. These findings, together with the gross examination, support the pathologic diagnosis. Immunostains are performed with appropriate controls and show the following: Block (A2): - CK7: Negative in tumor cells. - CK20: Negative in tumor cells. - CDx2: Positive in tumor nuclei. - Villin: Positive in tumor cells. - Chromogranin: Negative in tumor cells. - Synaptophysin: Negative in tumor cells. - Cytokeratin AE1/3: Positive in tumor cells. Block (C1): - CK7: Negative in tumor cells. - CK20: Negative in tumor cells. - CDx2: Positive in tumor nuclei. - Villin: Positive in tumor cells. - Chromogranin: Negative in tumor cells. - Synaptophysin: Negative in tumor cells. - Cytokeratin AE1/3: Positive in tumor cells. JVR:[facility] GROSS DESCRIPTION: Four specimens are received in four containers, labeled "JN." A. The specimen, labeled "JN, gallbladder," is received in formalin and consists of: Specimen: Previously opened gallbladder. Dimensions: 9 cm in length and 6.1 cm in inner circumference. Serosa: Violaceous and smooth. Cystic Duct: Unobstructed. Calculi: Calculi are not grossly identified within the gallbladder or within the container. Mucosa: Green mcfarland and velvety to smooth. It shows area of roughening that measures 0.7 x 0.7 cm. Area of roughening is entirely submitted in cassette A2 Wall thickness: 0.2 cm. Lymph node: No pericystic lymph nodes are grossly identified. Additional: None. Open H[employer] sections are submitted in cassettes (A1-A2). B. The specimen, labeled "JN, portal lymph node biopsy," is received in formalin and consists of two pink-mcfarland, soft tissue fragments that measure 0.2 PATIENT NAME: PAWEL HERRERA PATHOLOGY DATE OF : 33 REPORT #: [id number] PHYSICIAN: HOLILS ARELLANO PCP: DI JASON REPORT IS CONFIDENTIAL AND NOT TO BE RELEASED WITHOUT AUTHORIZATION [facility] [address] [place], [place] [address] Signed and 0.4 cm in greatest dimension. Specimen is entirely submitted in cassette (B1). C. The specimen, labeled "JN, lesser sac mass biopsy," is received in formalin and consists of three pink-mcfarland, needle core tissue fragments that range in size from 0.4 to 1.2 cm in length and up to 0.1 cm in diameter. Specimen is inked blue. Specimen is entirely submitted in cassettes (C1-C2). D. The specimen, labeled "JN, peritoneal biopsy," is received in formalin and consists of two pink-mcfarland, soft tissue fragments that measure 0.3 to 0.4 cm in greatest dimension. Specimen is entirely submitted in cassette (D1). JS (under the direct supervision of a pathologist) The Gross Description was prepared using a voice recognition system. The report was reviewed for accuracy; however, sound-alike word errors, addition and/or deletions may occur. If there is any question about this report, please contact Client Services. ADDITIONAL NOTES: Immunohistochemical and/or in situ hybridization studies were performed on this case with the appropriate positive controls that react as expected. This test was developed and its performance characteristics determined by [facility]. It has not been cleared or approved by the U.S. Food and Drug Administration. The FDA has determined that such clearance or approval is not necessary. This test is used for clinical purposes. It should not be regarded as investigational or for research. [facility] is certified under the Clinical Laboratory Improvement Amendments of 1988 (CLIA) as qualified to perform high complexity clinical laboratory testing. This assay has not been validated for specimens that have been decalcified. PERFORMING LABORATORY: The technical component was performed by [facility], [address] [place] [id number] (CLIA# [id number]). Professional interpretation was performed by [facility] - [address] [address] (CLIA#: [id number]). Diagnostician: Teja Arreola MD Pathologist Electronically Signed 10/07/2021 PATIENT NAME: PAWEL HERRERA PATHOLOGY DATE OF : 33 REPORT #: [id number] PHYSICIAN: KANDIKasenna PATHOLOGY PCP: DI JASON REPORT IS CONFIDENTIAL AND NOT TO BE RELEASED WITHOUT AUTHORIZATION [facility] [address] [place] [id number] Signed Copies: ~ PATIENT NAME: PAWEL HERRERA DONNY PATHOLOGY DATE OF : 33 REPORT #: [id number] PHYSICIAN: [facility] PATH[facility] PCP: DI JASON REPORT IS CONFIDENTIAL AND NOT TO BE RELEASED WITHOUT AUTHORIZATION
== END 2021-10-03 15:15 | disposition home or self-care (01) ==
LOC: DS 06:10 → EDSTATUS 07:30 → MS 07:30 → DS 07:30 → MS 09:00 → DS 09:00
PROVIDERS: ATTEND Surgery
PROC: 07BB4ZX Excision of Mesenteric Lymphatic, Percutaneous Endoscopic Approach, Diagnostic (ICD-10-PCS; 2021-10-03)
PROC: 0FT44ZZ Resection of Gallbladder, Percutaneous Endoscopic Approach (ICD-10-PCS; principal; 2021-10-03 07:30)
PROC: BF12YZZ Fluoroscopy of Gallbladder using Other Contrast (ICD-10-PCS; 2021-10-03 07:30)
DX: C23 Malignant neoplasm of gallbladder (principal); C96.9 Malignant neoplasm of lymphoid, hematopoietic and related tissue, unspecified; K82.1 Hydrops of gallbladder; K81.1 Chronic cholecystitis; Z85.038 Personal history of other malignant neoplasm of large intestine; Z85.828 Personal history of other malignant neoplasm of skin; Z85.46 Personal history of malignant neoplasm of prostate; Z88.1 Allergy status to other antibiotic agents; Z88.8 Allergy status to other drugs, medicaments and biological substances; Z79.82 Long term (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
CPT/HCPCS: 74300; J0330; J0690; J1100; J1644; J2001; J2405; J2704; J7121; Q9967

== ENCOUNTER 2021-10-04 05:28 | Emergency (ER) | payer MEDICARE, OTHER ==
[~2021-10-04] VITALS: Ht 170.2 cm; Wt 66.7 kg
--- NOTE | ~2021-10-04 | CONS ---
[facility] [address], [place] [address] Draft DATE OF CONSULTATION: 10/04/2021 REQUESTING PHYSICIAN: Hawk Gottlieb M.D. REASON FOR CONSULTATION: Drain output following operation on 10/03/2021. HISTORY OF PRESENT ILLNESS: This 86-year-old white man has significant dementia and is a patient of ALEXUS Pastrana, as well as Dr. Crawley. He has extreme frailty, has had multiple malignancies including right colectomy a year ago at [facility] for colon cancer, right nephrectomy for renal cell carcinoma, and prostatectomy for prostate cancer therapy otherwise. He had issues of lightheadedness and so forth and underwent a CT scan more than two weeks ago, was found to have adenopathy in the lesser sac as well as periportal area as well as hydropic gallbladder. Conference with the patient and his suggests they would proceed with palliative therapy if the malignancy that is quite obvious were identified and found to be susceptible to some agent. On that basis, he was referred by Dr. Crawley to me for biopsy of the peripancreatic and choledochal lymphadenopathy. On the basis of these factors, he yesterday underwent laparoscopic evaluation, where he was found to have a very distended hydropic gallbladder with ischemic changes, for which cholecystectomy was performed as well as cholangiogram, this was normal. A periportal lymph node was additionally biopsied and the lesser sac lesion also biopsied. That lesion was a bit more vascular and had some oozing, which required hemostatic control of not only cautery, but addition of fibrin glue as well as Erwin. A drain was placed to be on the safe side. Postoperatively, the patient's said that she did not think she could any longer take care of him at home due to his frailty and so forth. He had no real criteria for admission to the hospital and was eating well, had good pain control and the drain showed scant serosanguineous drainage. The patient was discharged home. 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 He presented back to the emergency room today noting that the patient has had a "300 mL" of fluid out of the drain. Evaluation in the utility worker driver hours showed him to be hemodynamically stable with hematocrit of 30, no sign of significant blood noted, only serosanguineous fluid. I was called about that and to consider admission to the hospital to organize for PATIENT NAME: PAWEL HERRERA CONSULTATION DATE OF : 33 REPORT #: [id number] PHYSICIAN: PAWEL HENDERSON MD PCP: DI JASON REPORT IS CONFIDENTIAL AND NOT TO BE RELEASED WITHOUT AUTHORIZATION [facility] [address], [place] [address] Draft disposition to an extended care facility or other institution. Mindful of the possibility of bleeding or other problem and despite hemodynamic stability, I advised that he undergo a CT scan with GI and IV contrast, which he did. I reviewed the CT scan myself; the official read is still pending as the teleradiography service is quite late in their interpretations. I see no real difference in the CT scan of what was previously noted. There is no evidence of complication of bleeding or other problem. There is no sign of large hematoma or other concerning findings. PHYSICAL EXAMINATION: GENERAL: He is alert and as usual not oriented and with significant dementia. His trachea is midline. He has no tachypnea. ABDOMEN: Soft and easily palpated. There is no focal mass, tenderness, or ascites. The drain is reviewed showing a serosanguineous fluid in the bulb. The drain was removed without problem and a Band-Aid was applied. ASSESSMENT: The patient appears to be medically stable and having no complication that would require admission to the hospital. DISPOSITION: To an ECF (Extended Care Facility) may be appropriate; however, in my opinion that does not warrant admission to the hospital at this time. There is locally and regionally a severe shortage of extended care facility beds due to COVID overload in some of those institutions essentially all of them. I will and have communicated this further to Dr. Gottlieb in our emergency room. I believe the patient to have no medical necessity for admission to the hospital at this time. A decline in his health status or other indication for admission may eventually evolved, but at present, there is no such finding on my evaluation. The patient does come from a household with capable caregiver (), who is a retired nurse and other family members are available for my understanding preoperatively. MD MACARIO Patrick/RIYA /[id number] PATIENT NAME: PAWEL HERRERA CONSULTATION DATE OF : 34 REPORT #: [id number] PHYSICIAN: PAWEL HENDERSON MD PCP: DI JASON REPORT IS CONFIDENTIAL AND NOT TO BE RELEASED WITHOUT AUTHORIZATION [facility] [address] [place], [place] [address] Draft cc: MD Di Lopez FNP William S. Powell, MD Copies: ANA PAULA CRAWLEY MD, LACEY FNP POWELL, WILLIAM S MD ~ PATIENT NAME: AJVIERPAWEL CONSULTATION DATE OF : 34 REPORT #: [id number] PHYSICIAN: PAWEL HENDERSON MD PCP: DI JASON REPORT IS CONFIDENTIAL AND NOT TO BE RELEASED WITHOUT AUTHORIZATION
--- OUTSIDE RECORDS SUMMARY | 2021-10-04 05:30 | XMS ---
PreManage Notification: PAWEL HERRERA Security Laminator Events No recent Security Events currently on file CRITERIA MET - [facility] - Has Care Guidelines - [facility] - 2 Visits in 30 Days - PDMP - 6 ED Visits in 6 Months CARE PROVIDERS DI JASON Nurse Practitioner: 01/29/2020-Current PHONE: [phone] Stalin has no Care Guidelines for this patient. Care History Medical/Surgical 04/07/2021 [facility] Patient has appointment with Dr. Palma on 04/08/2021. Note has been sent to Dr. Winkler office to get patient scheduled for Endoscopy. 03/17/2021 [facility] - Patient is currently established with [facility]. If patient is seen in the ED during business hours. Please contact CHWs at [facility]. Care Recommendation: If this patient has had 5 or more Emergency Department visits in the last 12 months.\T\nbsp; Patient will require education on the scope and purpose of the ED as an acute care provider not a Primary Care Provider and should not be utilized for chronic conditions.\T\nbsp; These are guidelines and the provider should exercise clinical judgment when providing care. 03/17/2021 [facility] Seen by Luis on 03/07/2021 for colon cancer findings. Follow up visit with Dr. Peacock on 04/02/2021 E.DRani VISIT COUNT (12 MO.) [address] [facility] TOTAL 13 NOTE: Visits indicate total known visits. 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 09/24/2021 04:23 [facility] TYPE: Emergency COMPLAINT: - FALL, HEAD INJ DIAGNOSES: - Other [facility] (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 - Unspecified dementia without behavioral disturbance - Unspecified injury of head, initial encounter - Allergy status to other drugs, medicaments and biological substances - Allergy status to other antibiotic agents - Personal history of transient ischemic attack (TIA), and cerebral infarction without residual deficits - Unspecified fall, initial encounter - 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 carman (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 - Essential (primary) [...] Personal history of nicotine dependence - Other [facility] (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 - Allergy status to other drugs, medicaments and biological substances - penitentiary (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 - Low back pain, unspecified - Allergy status to other antibiotic agents - Essential (primary) hypertension 06/30/2021 18:13 [facility] TYPE: Emergency COMPLAINT: - CHEST PAIN DIAGNOSES: - terminal carman (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 - Personal history [...] pain - Essential (primary) hypertension - Other [facility] (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 06/14/2021 22:32 [facility] [...] other malignant neoplasm of kidney - 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 04/07/2021 15:25 [facility] TYPE: Emergency COMPLAINT: - SWALLOWING PROBLEM DIAGNOSES: - Other specified symptoms and signs involving the circulatory and respiratory systems - Gastric contents in pharynx causing asphyxiation, initial encounter - 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 - Personal history of malignant neoplasm of prostate - terminal carman (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 - Food in [...] replacement therapy - Epigastric pain - 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 - Resistance to multiple antibiotics - Acute cystitis without hematuria - Other specified diseases of liver - terminal carman (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 - Epilepsy, unspecified, [...] of other malignant neoplasm of kidney - terminal carman (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 - Hyperlipidemia, unspecified - Hypertensive chronic kidney disease with stage 1 through stage 4 chronic kidney disease, or unspecified chronic kidney disease - Allergy status to other antibiotic agents - Acute kidney failure, unspecified - Other m[facility]p (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 - Allergy status to other drugs, medicaments and biological substances - Chronic kidney disease, stage 3b - Epilepsy, unspecified, not intractable, without status epilepticus - Dysphagia, oropharyngeal phase - Hypothyroidism, unspecified - Resistance to multiple antibiotics - Personal history of other malignant neoplasm of kidney 06/14/2021 22:[address] [facility] [place] TYPE: Observation COMPLAINT: - SEPSIS, PNEUMONIA [...] - Malignant neoplasm of bladder, unspecified - penitentiary (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 - [...] not intractable, without status epilepticus - 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 - Other specified postprocedural [...] drugs, medicaments and biological substances [facility]2020 [facility] DIAGNOSES: - Malignant neoplasm of ascending colon - Acquired absence of other specified parts of digestive tract [id number]
[2021-10-04] MEDS ORDERED: OXYCODON-ACETA1 EAC2 PO (05:59)
== END 2021-10-04 13:03 | disposition home or self-care (01) ==
LOC: ED 05:28
DX: K91.840 Postprocedural hemorrhage of a digestive system organ or structure following a digestive system procedure (principal); I10 Essential (primary) hypertension; F03.90 Unspecified dementia, unspecified severity, without behavioral disturbance, psychotic disturbance, mood disturbance, and anxiety; Z88.1 Allergy status to other antibiotic agents; Z88.8 Allergy status to other drugs, medicaments and biological substances; Z79.899 Other long term (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; Z79.82 Long term (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; Z20.822 Contact with and (suspected) exposure to COVID-19; Z85.038 Personal history of other malignant neoplasm of large intestine; Z85.46 Personal history of malignant neoplasm of prostate; Z85.528 Personal history of other malignant neoplasm of kidney; Z85.51 Personal history of malignant neoplasm of bladder; Y83.9 Surgical procedure, unspecified as the cause of abnormal reaction of the patient, or of later complication, without mention of misadventure at the time of the procedure
CPT/HCPCS: 36415; 74177; 80053; 83690; 85025; 87502; C9803; J7030; Q9967; U0003

== ENCOUNTER 2021-10-13 14:53 | Emergency (ER) | payer MEDICARE, OTHER ==
[~2021-10-13] VITALS: Ht 170.2 cm; Wt 66.2 kg
[~2021-10-13 14:53] MED LIST changes: +OXYCODON-ACETA1 EAC2 PO
--- OUTSIDE RECORDS SUMMARY | 2021-10-13 14:55 | XMS ---
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 Care History Medical/Surgical 04/07/2021 [facility] Patient has appointment with Dr. Palma on 04/08/2021. Note has been sent to Dr. Winkler office to get patient scheduled for Endoscopy. 03/17/2021 [facility] - Patient is currently established with [facility]. If patient is seen in the ED during business hours. Please contact CHWs at [facility]. Care Recommendation: If this patient has had 5 or more Emergency Department visits in the last 12 months.\T\nbsp; Patient will require education on the scope and purpose of the ED as an acute care provider not a Primary Care Provider and should not be utilized for chronic conditions.\T\nbsp; These are guidelines and the provider should exercise clinical judgment when providing care. 03/17/2021 [facility] Seen by Luis on 03/07/2021 for colon cancer findings. Follow up visit with Dr. Peacock on 04/02/2021 E.DRani VISIT COUNT (12 MO.) [address] [facility] TOTAL 13 NOTE: Visits indicate total known visits. ED/UCC VISIT TRACKING (12 MO.) 10/13/2021 14:53 [facility] TYPE: Emergency COMPLAINT: - ABDOMINAL PAIN 10/04/2021 05:29 [facility] TYPE: Emergency COMPLAINT: - POST OP PROBLEM DIAGNOSES: - Allergy status to other antibiotic agents - Personal history of other malignant neoplasm of large intestine - penitentiary (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 - Postprocedural hemorrhage of a digestive system organ or structure following a digestive system procedure - Personal history of malignant neoplasm of prostate - Surgical procedure, unspecified as the cause of abnormal reaction of the patient, or of later complication, without mention of misadventure at the time of the procedure - Other jail (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 - Essential (primary) hypertension - Contact with and (suspected) exposure to COVID-19 - Unspecified dementia without behavioral disturbance - Personal history of other malignant neoplasm of kidney - Personal history of malignant neoplasm of bladder - Allergy status to other drugs, medicaments and biological substances 09/26/2021 21:18 [facility] TYPE: Emergency COMPLAINT: - ABDOMINAL PAIN DIAGNOSES: - Other medical terminologist (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 - Upper abdominal pain, unspecified - Allergy status to other antibiotic agents - Personal history of nicotine dependence - Essential (primary) hypertension - Allergy status to other drugs, medicaments and biological substances - ferry terminal agent (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 09/24/2021 04:23 [facility] TYPE: Emergency COMPLAINT: - FALL, HEAD INJ DIAGNOSES: - Other jail (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 - Unspecified dementia without behavioral disturbance - Unspecified injury of head, initial encounter - Allergy status to other drugs, medicaments and biological substances - Allergy status to other antibiotic agents - Personal history of transient ischemic attack (TIA), and cerebral infarction without residual deficits - Unspecified fall, initial encounter - ferry terminal agent (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 - Essential (primary) [...] Personal history of nicotine dependence - Other jail (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 - Allergy status to other drugs, medicaments and biological substances - ferry terminal agent (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 - Low back pain, unspecified - Allergy status to other antibiotic agents - Essential (primary) hypertension 06/30/2021 18:13 [facility] TYPE: Emergency COMPLAINT: - CHEST PAIN DIAGNOSES: - ferry terminal agent (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 - Personal history [...] pain - Essential (primary) hypertension - Other medical terminologist (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 06/14/2021 22:32 [facility] [...] Essential (primary) hypertension - COUGH, UNSPECIFIED - ferry terminal agent (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 - Acute bronchitis, unspecified - Personal history of transient ischemic attack (TIA), and cerebral infarction without residual deficits - Personal history of other malignant neoplasm of kidney - Other jail (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 04/07/2021 15:25 [facility] TYPE: Emergency COMPLAINT: - SWALLOWING PROBLEM DIAGNOSES: - Other specified symptoms and signs involving the circulatory and respiratory systems - Gastric contents in pharynx causing asphyxiation, initial encounter - Other medical terminologist (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 - Personal history of [...] replacement therapy - Epigastric pain - Other medical terminologist (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 - Essential (primary) hypertension - Personal history of malignant neoplasm of prostate - Personal history of other malignant neoplasm of kidney - Other chest pain - Allergy status to other drugs, medicaments and biological substances - ferry terminal agent (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 - Personal history of nicotine dependence - Personal history of transient ischemic attack (TIA), and cerebral infarction without residual deficits 03/15/2021 13:15 [facility] TYPE: Emergency COMPLAINT: - POSS STROKE INPATIENT VISIT TRACKING (12 MO.) 09/02/2021 14:53 [facility] TYPE: Critical Care COMPLAINT: - NAUSEA AND VOMITING DIAGNOSES: - Personal history of malignant neoplasm of bladder - ferry terminal agent (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 - Contact with [...] - Benign neoplasm of pancreas - Other medical terminologist (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 - Occlusion and stenosis of bilateral carotid arteries - Contact with and (suspected) exposure to COVID-19 - Acquired absence of kidney - Hypertensive chronic kidney disease with stage 1 through stage 4 chronic kidney disease, or unspecified chronic kidney disease - Personal history of transient ischemic attack (TIA), and cerebral infarction without residual deficits - ferry terminal agent (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 - Personal history [...] - Other specified postprocedural states - Other medical terminologist (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 - Other specified postprocedural [...] cerebral infarction without residual deficits - Other jail (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 - Resistance to multiple antibiotics - Acute cystitis without hematuria - Other specified diseases of liver - penitentiary (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 - Epilepsy, unspecified, [...] - Acute kidney failure, unspecified - Other medical terminologist (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 - Allergy status to [...] and (suspected) exposure to COVID-19 03/15/2021 17:[address] [facility] TYPE: Medical Surgical COMPLAINT: - CVA DIAGNOSES: - Essential (primary) hypertension - Hypothyroidism, unspecified - Allergy status to other antibiotic agents - Epilepsy, unspecified, not intractable, without status epilepticus - Other medical terminologist (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 - Other specified postprocedural [...] drugs, medicaments and biological substances 11/25/2020 07:[address] [facility] TYPE: Gastroenterology DIAGNOSES: - Malignant neoplasm of ascending colon - Acquired absence of other specified parts of digestive tract [email or web address]
== END 2021-10-13 17:28 | disposition home or self-care (01) ==
LOC: ED 14:53
DX: K40.90 Unilateral inguinal hernia, without obstruction or gangrene, not specified as recurrent (principal); I10 Essential (primary) hypertension; Z87.891 Personal history of nicotine dependence; Z88.8 Allergy status to other drugs, medicaments and biological substances; Z88.1 Allergy status to other antibiotic agents; Z79.899 Other long term (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; Z79.82 Long term (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
CPT/HCPCS: 99283

== ENCOUNTER 2021-10-13 20:33 | Emergency (ER) | payer MEDICARE, OTHER ==
[~2021-10-13] VITALS: Ht 170.2 cm; Wt 66.2 kg
--- OUTSIDE RECORDS SUMMARY | 2021-10-13 20:36 | XMS ---
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 Care History Medical/Surgical 04/07/2021 [facility] Patient has appointment with Dr. Palma on 04/08/2021. Note has been sent to Dr. Winkler office to get patient scheduled for Endoscopy. 03/17/2021 [facility] - Patient is currently established with [facility]. If patient is seen in the ED during business hours. Please contact CHWs at [facility]. Care Recommendation: If this patient [...] exercise clinical judgment when providing care. 03/17/2021 [facility] Seen by Luis on 03/07/2021 for colon cancer findings. Follow up visit with Dr. Peacock on 04/02/2021 E.DRani VISIT COUNT (12 MO.) [address] [facility] TOTAL 14 NOTE: Visits indicate total known visits. ED/UCC VISIT TRACKING (12 MO.) 10/13/2021 20:34 [facility] TYPE: Emergency COMPLAINT: - ABDOMINAL PAIN 10/13/2021 14:53 [facility] TYPE: Emergency COMPLAINT: - ABDOMINAL PAIN 10/04/2021 05:29 [facility] TYPE: Emergency COMPLAINT: - POST OP PROBLEM DIAGNOSES: - Allergy status to other antibiotic agents - Personal history of other malignant neoplasm of large intestine - termite 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 (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 - Postprocedural hemorrhage of a digestive system organ or structure following a digestive system procedure - Personal history of malignant neoplasm of prostate - Surgical procedure, unspecified as the cause of abnormal reaction of the patient, or of later complication, without mention of misadventure at the time of the procedure - Other prison (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 - [...] COMPLAINT: - ABDOMINAL PAIN DIAGNOSES: - Other intermediate designer (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 - Upper abdominal pain, unspecified - Allergy status to other antibiotic agents - Personal history of nicotine dependence - Essential (primary) hypertension - Allergy status to other drugs, medicaments and biological substances - retirement (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 09/24/2021 04:23 [facility] TYPE: Emergency COMPLAINT: - FALL, HEAD INJ DIAGNOSES: - Other prison (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 - Unspecified dementia without behavioral disturbance - Unspecified injury of head, initial encounter - Allergy status to other drugs, medicaments and biological substances - Allergy status to other antibiotic agents - Personal history of transient ischemic attack (TIA), and cerebral infarction without residual deficits - Unspecified fall, initial encounter - retirement (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 - Essential (primary) [...] history of nicotine dependence - Other intermediate designer (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 - Allergy status to other drugs, medicaments and biological substances - retirement (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 - Low back [...] - Essential (primary) hypertension - Other intermediate designer (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 06/14/2021 22:32 [facility] [...] Essential (primary) hypertension - COUGH, UNSPECIFIED - retirement (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 - Acute bronchitis, unspecified - Personal history of transient ischemic attack (TIA), and cerebral infarction without residual deficits - Personal history of other malignant neoplasm of kidney - Other prison (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 04/07/2021 15:25 [facility] TYPE: Emergency COMPLAINT: - SWALLOWING PROBLEM DIAGNOSES: - Other specified symptoms and signs involving the circulatory and respiratory systems - Gastric contents in pharynx causing asphyxiation, initial encounter - Other prison (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 - Personal history of [...] therapy - Epigastric pain - Other intermediate designer (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 - Essential (primary) hypertension - Personal history of malignant neoplasm of prostate - Personal history of other malignant neoplasm of kidney - Other chest pain - Allergy status to other drugs, medicaments and biological substances - termite 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 (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 - Personal history of nicotine dependence - Personal history of transient ischemic attack (TIA), and cerebral infarction without residual deficits 03/15/2021 13:15 [facility] TYPE: Emergency COMPLAINT: - POSS STROKE INPATIENT VISIT TRACKING (12 MO.) 09/02/2021 14:53 [facility] TYPE: Critical Care COMPLAINT: - NAUSEA AND VOMITING DIAGNOSES: - Personal history of malignant neoplasm of bladder - retirement (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 - Contact with [...] - Benign neoplasm of pancreas - Other intermediate designer (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 - Occlusion and stenosis of bilateral carotid arteries - Contact with and (suspected) exposure to COVID-19 - Acquired absence of kidney - Hypertensive chronic kidney disease with stage 1 through stage 4 chronic kidney disease, or unspecified chronic kidney disease - Personal history of transient ischemic attack (TIA), and cerebral infarction without residual deficits - retirement (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 - [...] - Other specified postprocedural states - Other prison (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 - [...] cerebral infarction without residual deficits - Other intermediate designer (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 - Resistance to multiple antibiotics - Acute cystitis without hematuria - Other specified diseases of liver - termite 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 (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 - Epilepsy, unspecified, [...] of other malignant neoplasm of kidney - termite 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 (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 - Hyperlipidemia, unspecified - Hypertensive chronic kidney disease with stage 1 through stage 4 chronic kidney disease, or unspecified chronic kidney disease - Allergy status to other antibiotic agents - Acute kidney failure, unspecified - Other prison (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 - Allergy status to [...] - Malignant neoplasm of bladder, unspecified - termite 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 (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 - Hyperlipidemia, unspecified [...] drugs, medicaments and biological substances 11/25/2020 07:11 [facility] DIAGNOSES: - Malignant neoplasm of ascending colon - Acquired absence of other specified parts of digestive tract [email or web address]
== END 2021-10-13 22:47 | disposition home or self-care (01) ==
LOC: ED 20:33
DX: K40.90 Unilateral inguinal hernia, without obstruction or gangrene, not specified as recurrent (principal); I10 Essential (primary) hypertension; Z87.891 Personal history of nicotine dependence; Z88.8 Allergy status to other drugs, medicaments and biological substances; Z88.1 Allergy status to other antibiotic agents; Z79.899 Other long term (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; Z79.82 Long term (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
CPT/HCPCS: 99283

== ENCOUNTER 2021-10-21 14:17 | Emergency (ER) | payer OTHER, MEDICARE ==
[~2021-10-21] VITALS: Ht 170.2 cm; Wt 66.2 kg
--- OUTSIDE RECORDS SUMMARY | 2021-10-21 14:24 | XMS ---
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 Care History Medical/Surgical 04/07/2021 [facility] Patient has appointment with Dr. Palma on 04/08/2021. Note has been sent to Dr. Winkler office to get patient scheduled for Endoscopy. 03/17/2021 [facility] - Patient is currently established with [...] clinical judgment when providing care. 03/17/2021 [facility] Seen by Luis on 03/07/2021 for colon cancer findings. Follow up visit with Dr. Peacock on 04/02/2021 [facility] VISIT COUNT (12 MO.) [address] [facility] TOTAL 15 NOTE: Visits indicate total known visits. ED/UCC VISIT TRACKING (12 MO.) 10/21/2021 14:18 [facility] [place] TYPE: Emergency COMPLAINT: - ALTERED LOC 10/13/2021 20:34 [facility] [place] TYPE: Emergency COMPLAINT: - ABDOMINAL PAIN DIAGNOSES: - Essential (primary) hypertension - bed bug 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 (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 - Allergy status to other antibiotic agents - 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 termite (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 - Allergy status to other drugs, medicaments and biological substances - Right lower quadrant pain - Unilateral inguinal hernia, without obstruction or gangrene, not specified as recurrent - Personal history of nicotine dependence 10/13/2021 14:53 [facility] [place] TYPE: Emergency COMPLAINT: - ABDOMINAL PAIN DIAGNOSES: - Essential (primary) hypertension - Right lower quadrant pain - Unilateral inguinal hernia, without obstruction or gangrene, not specified as recurrent - Allergy status to other antibiotic agents - Allergy status to other drugs, medicaments and biological substances - 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 termite (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 - Personal history of nicotine dependence - jail (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 10/04/2021 05:29 [facility] [place] TYPE: Emergency COMPLAINT: - POST OP PROBLEM DIAGNOSES: - Personal history of malignant neoplasm of bladder - jail (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 - Unspecified dementia without behavioral disturbance - Allergy status to other antibiotic agents - Essential (primary) hypertension - Surgical procedure, unspecified as the cause of abnormal reaction of the patient, or of later complication, without mention of misadventure at the time of the procedure - Allergy status to other drugs, medicaments and biological substances - Postprocedural hemorrhage of a digestive system organ or structure following a digestive system procedure - Personal history of other malignant neoplasm of kidney - Personal history of other malignant neoplasm of large intestine - Contact with and (suspected) exposure to COVID-19 - Other jail (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 - Personal history of malignant neoplasm of prostate 09/26/2021 21:18 [facility] [place] TYPE: Emergency COMPLAINT: - ABDOMINAL PAIN DIAGNOSES: - Allergy status to other antibiotic agents - 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 termite (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 - Allergy status to other drugs, medicaments and biological substances - Personal history of nicotine dependence - Upper abdominal pain, unspecified - jail (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 - Essential (primary) hypertension 09/24/2021 04:23 [facility] [place] TYPE: Emergency COMPLAINT: - FALL, HEAD INJ DIAGNOSES: - Unspecified injury of head, initial encounter - Bathroom of unspecified non-institutional (private) residence as the place of occurrence of the external cause - Other jail (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 - bed bug 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 (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 - Personal history of transient ischemic attack (TIA), and cerebral infarction without residual deficits - Allergy status to other drugs, medicaments and biological substances - Personal history of nicotine dependence - Unspecified dementia without behavioral disturbance - Essential (primary) hypertension - Unspecified fall, initial encounter - Allergy status to other antibiotic agents 08/31/2021 18:01 [facility] [place] TYPE: Emergency COMPLAINT: - VOMITING 08/25/2021 10:12 [facility] [place] TYPE: Emergency COMPLAINT: - WEAKNESS, POSS UTI 08/19/2021 04:28 [facility] [place] TYPE: Emergency COMPLAINT: - BACK PAIN DIAGNOSES: - 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 termite (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 - Pain in thoracic spine - Essential (primary) hypertension - Low back pain, unspecified - Allergy status to other drugs, medicaments and biological substances - Personal history of nicotine dependence - Allergy status to other antibiotic agents - jail (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 06/30/2021 18:13 [facility] [place] TYPE: Emergency COMPLAINT: - CHEST PAIN DIAGNOSES: - Allergy status to other drugs, medicaments and biological substances - 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 termite (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 - jail (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 - Other chest pain - Personal history of other malignant neoplasm of kidney - Personal history of nicotine dependence - Personal history of transient ischemic attack (TIA), and cerebral infarction without residual deficits - Essential (primary) hypertension - Personal history of malignant neoplasm of prostate - Personal history of other malignant neoplasm of large intestine 06/14/2021 22:32 [facility] [place] TYPE: Emergency COMPLAINT: - BODY TRIMMERS 04/26/2021 19:08 [facility] [place] TYPE: Emergency COMPLAINT: - COUGH, SHORTNESS OF BREATH DIAGNOSES: - Other jail (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 - Contact with and (suspected) exposure to COVID- - Personal history of transient ischemic attack (TIA), and cerebral infarction without residual deficits - Personal history of nicotine dependence - jail (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 - Essential (primary) hypertension - Cough, unspecified - Personal history of other malignant neoplasm of kidney - Allergy status to other drugs, medicaments and biological substances - Acute bronchitis, unspecified - COUGH, UNSPECIFIED - Personal history of malignant neoplasm of prostate 04/07/2021 15:25 [facility] [place] TYPE: Emergency COMPLAINT: - SWALLOWING PROBLEM DIAGNOSES: - Personal history of other malignant neoplasm of kidney - Other jail (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 - Essential (primary) hypertension - Other specified symptoms and signs involving the circulatory and respiratory systems - Personal history of transient ischemic attack (TIA), and cerebral infarction without residual deficits - Food in pharynx causing other injury, initial encounter - Personal history of malignant neoplasm of prostate - Hormone replacement therapy - Gastric contents in pharynx causing asphyxiation, initial encounter - Personal history of nicotine dependence - Allergy status to other drugs, medicaments and biological substances - jail (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 04/05/2021 15:10 [facility] [place] TYPE: Emergency COMPLAINT: - CHEST PAIN DIAGNOSES: - 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 termite (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 - Personal history of nicotine dependence - Hormone replacement therapy - Allergy status to other drugs, medicaments and biological substances - Personal history of other malignant neoplasm of kidney - Essential (primary) hypertension - Personal history of transient ischemic attack (TIA), and cerebral infarction without residual deficits - Epigastric pain - 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 [place] TYPE: Critical Care COMPLAINT: - NAUSEA AND VOMITING DIAGNOSES: - Personal history of malignant neoplasm of prostate - Contact with and (suspected) exposure to COVID-19 - Acute gastritis without bleeding - Gastro-esophageal reflux disease without esophagitis - Chronic kidney disease, stage 4 (severe) - Benign neoplasm of pancreas - Contact with and (suspected) exposure to COVID-19 - Hypothyroidism, unspecified - Urinary tract infection, site not specified - Hypertensive chronic kidney disease with stage 1 through stage 4 chronic kidney disease, or unspecified chronic kidney disease - Epilepsy, unspecified, not intractable, without status epilepticus - Epilepsy, unspecified, not intractable, without status epilepticus - Personal history of other malignant neoplasm of large intestine - Other specified postprocedural states - Personal history of malignant neoplasm of renal pelvis - Personal history of malignant neoplasm of prostate - Personal history of nicotine dependence - Other jail (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 - Hypothyroidism, unspecified - Chronic kidney disease, stage 4 (severe) - Acquired absence of kidney - Gastro-esophageal reflux disease without esophagitis - Personal history of transient ischemic attack (TIA), and cerebral infarction without residual deficits - Acute gastritis without bleeding - Neoplasm of unspecified behavior of digestive system - Allergy status to other antibiotic agents - Personal history of other malignant neoplasm of large intestine - Personal history of malignant neoplasm of renal pelvis - Acquired absence of kidney - jail (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 - Urinary tract infection, site not specified - Personal history of malignant neoplasm of bladder - Personal history of transient ischemic attack (TIA), and cerebral infarction without residual deficits - Personal history of (healed) traumatic fracture - Acute kidney failure, unspecified - Occlusion and stenosis of bilateral carotid arteries - Personal history of nicotine dependence - Allergy status to other antibiotic agents - Allergy status to other drugs, medicaments and biological substances - Other specified postprocedural states - Personal history of (healed) traumatic fracture - Nausea with vomiting, unspecified - Allergy status to other drugs, medicaments and biological substances - Personal history of malignant neoplasm of bladder - jail (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 - 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 termite (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 - Neoplasm of unspecified behavior of digestive system - Acute kidney failure, unspecified - Benign neoplasm of pancreas - Occlusion and stenosis of bilateral carotid arteries - Hypertensive chronic kidney disease with stage 1 through stage 4 chronic kidney disease, or unspecified chronic kidney disease 08/25/2021 12:[address] [facility] [place] TYPE: Medical Surgical COMPLAINT: - DANITZA, CYSTITIS DIAGNOSES: - Hyperlipidemia, unspecified - Unspecified Escherichia coli [E. coli] as the cause of diseases classified elsewhere - Personal history of malignant neoplasm of prostate - Epilepsy, unspecified, not intractable, without status epilepticus - Other specified disorders of peritoneum - Hypertensive chronic kidney disease with stage 1 through stage 4 chronic kidney disease, or unspecified chronic kidney disease - Dysphagia, oropharyngeal phase - Epilepsy, unspecified, not intractable, without status epilepticus - Personal history of other malignant neoplasm of kidney - Allergy status to other drugs, medicaments and biological substances - Hypothyroidism, unspecified - Hypertensive chronic kidney disease with stage 1 through stage 4 chronic kidney disease, or unspecified chronic kidney disease - Personal history of transient ischemic attack (TIA), and cerebral infarction without residual deficits - Other specified diseases of liver - Gastro-esophageal reflux disease without esophagitis - Acute kidney failure, unspecified - Personal history of transient ischemic attack (TIA), and cerebral infarction without residual deficits - Personal history of malignant neoplasm of bladder - Resistance to multiple antibiotics - Resistance to multiple antibiotics - Personal history of malignant neoplasm of bladder - Other specified diseases of liver - Personal history of malignant neoplasm of prostate - Gastro-esophageal reflux disease without esophagitis - Dysphagia, oropharyngeal phase - Hyperlipidemia, unspecified - Other specified diseases of pancreas - Personal history of other malignant neoplasm of large intestine - Contact with and (suspected) exposure to COVID-19 - jail (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 - Chronic kidney disease, stage 3b - Acute cystitis without hematuria - Allergy status to other drugs, medicaments and biological substances - Unspecified Escherichia coli [E. coli] as the cause of diseases classified elsewhere - jail (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 - Personal history of other malignant neoplasm of large intestine - Other jail (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 - Other specified diseases of pancreas - Personal history of other malignant neoplasm of kidney - Acute cystitis without hematuria - Other specified disorders of peritoneum - Allergy status to other antibiotic agents - Allergy status to other antibiotic agents - Contact with and (suspected) exposure to COVID-19 - Hypothyroidism, unspecified - 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 termite (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 - Chronic kidney disease, stage 3b 06/14/2021 22:[address] [facility] [place] TYPE: Observation COMPLAINT: - SEPSIS, PNEUMONIA DIAGNOSES: - Personal history of nicotine dependence - Interstitial pulmonary disease, unspecified - bed bug 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 (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 - Occlusion and stenosis of bilateral carotid arteries - Epilepsy, unspecified, not intractable, without status epilepticus - Hypertensive chronic kidney disease with stage 1 through stage 4 chronic kidney disease, or unspecified chronic kidney disease - Hypothyroidism, unspecified - Gastro-esophageal reflux disease without esophagitis - Acquired absence of kidney - Hyperlipidemia, unspecified - Chronic kidney disease, stage 3b - Malignant neoplasm of bladder, unspecified - Contact with and (suspected) exposure to COVID-19 - Personal history of transient ischemic attack (TIA), and cerebral infarction without residual deficits - Pneumonitis due to inhalation of food and vomit - Unspecified glaucoma 03/15/2021 17:24 [facility] TYPE: Medical Surgical COMPLAINT: - CVA DIAGNOSES: - Contact with and (suspected) exposure to COVID-19 - Allergy status to other antibiotic agents - Acquired absence of kidney - Essential (primary) hypertension - Personal history of nicotine dependence - Allergy status to other drugs, medicaments and biological substances - Other specified postprocedural states - Hemiplegia and hemiparesis following cerebral infarction affecting right dominant side - Epilepsy, unspecified, not intractable, without status epilepticus - Personal history of other malignant neoplasm of kidney - Hypothyroidism, unspecified - Personal history of malignant neoplasm of prostate - Gastro-esophageal reflux disease without esophagitis - Acquired absence of other genital organ(s) - Other jail (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 11/25/2020 07:11 [facility] TYPE: Gastroenterology DIAGNOSES: - Malignant neoplasm of ascending colon - Acquired absence of other specified parts of digestive tract [email or web address]
[2021-10-21] MEDS ORDERED: CEPHALEXIN500 M1 PO (19:26)
== END 2021-10-21 21:41 | disposition home or self-care (01) ==
LOC: ED 14:17
DX: R41.0 Disorientation, unspecified (principal); N39.0 Urinary tract infection, site not specified; I10 Essential (primary) hypertension; Z86.73 Personal history of transient ischemic attack (TIA), and cerebral infarction without residual deficits; Z87.891 Personal history of nicotine dependence; Z88.8 Allergy status to other drugs, medicaments and biological substances; Z79.899 Other long term (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; Z79.82 Long term (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
CPT/HCPCS: 36415; 71045; 80053; 81001; 85025; J0696; J1953; J2060; J7030

== ENCOUNTER 2021-10-24 09:27 | Day surgery (SDC) | payer MEDICARE, OTHER ==
[~2021-10-24] VITALS: Ht 170.2 cm; Wt 67.7 kg
[~2021-10-24 09:27] MED LIST changes: +CEPHALEXIN500 M1 PO
--- NOTE | 2021-10-24 14:41 | NUR ---
10/24/21 1441 Sheets,Era 1436 PT ARRIVED TO PACU ON 10L VIA MASK WITH ORAL AIRWAY IN PLACE. VSS. PT NONAROUSABLE.
[2021-10-24] MEDS ORDERED: IBUPROFEN600 MG PO (14:50)
[2021-10-24] MEDS ORDERED: ACETAMINOPHEN500 MG PO (14:50)
--- NOTE | 2021-10-24 15:16 | NUR ---
[id number] BACK TO ROOM FROM PACU ON . RECEIVED REPORT FROM SANDOVAL PEREZ. PATIENT IS DROWSY AND FALLS ASLEEP EASILY. RESP EVEN AND UNLABORED. PATIENT SHAKES HEAD NO WHEN ASKED ABOUT PAIN. DRESSING IS CLEAN, DRY, AND INTACT. PATIENT DECLINES WATER AT THIS TIME. O2 MONITOR ON PATIENT. CALL LIGHT WITHIN REACH.
--- NOTE | 2021-10-24 16:37 | NUR ---
[id number] SITTING UP IN BED AWAKE. RESP EVEN AND UNLABORED. DENIES PAIN AND NAUSEA. DRESSING IS CLEAN, DRY, AND INTACT. PATIENT USED BEDSIDE URINAL. DAUGHTER IN LAW AND IN ROOM. PATIENT READY TO GO HOME.
--- NOTE | 2021-10-24 16:42 | NUR ---
[id number] INSTRUCTIONS GIVEN TO PATIENT AND DAUGHTER IN LAW. ALL QUESTIONS ANSWERED. PATIENT AMBULATED TO WHEELCHAIR, GAIT UNSTEADY BUT TOLERATED WELL. RIDE PROVIDED TO FRONT OF HOSPITAL WHERE CAR WAS.
--- NOTE | 2021-10-25 11:05 | OR ---
[facility] [address], [place] [address] Signed DATE OF OPERATION: 10/24/2021 SURGEON: Pawel Henderson MD PREOPERATIVE DIAGNOSES: 1. Symptomatic right inguinal hernia. 2. Dementia and multiple medical problems. POSTOPERATIVE DIAGNOSIS: Right indirect sliding hernia (colovesical ). PROCEDURE: Repair of right sliding indirect inguinal hernia without implantation of mesh. ANESTHESIA: General LMA, Pawel Segura CRNA and local 10 mL of 0.25% Marcaine with epinephrine. INDICATION: This 86-year-old white man has numerous medical problems including metastatic colon cancer. He has recently undergone laparoscopic biopsy of retroperitoneal mass as well as cholecystectomy and is doing well in that regard. He has developed a right inguinal hernia which appears to be symptomatic. It is reducible. He is admitted at this time to undergo repair of the symptomatic right inguinal hernia with the patient to the degree he can and family members fully the risk of bleeding, infection, recurrent hernia, and other unforeseen complications. Understanding this, they wished to proceed. FINDINGS: Rather large indirect inguinal hernia sac was noted. It had a sliding component of the colon with taenia epiploica making up the medial wall. These structures were freed and reduced to the intra-abdominal space. The hernia sac was ligated and redundant hernia sac amputated. The floor was surprisingly intact. On the basis of his limited life span and other issues, implantation of mesh was not deemed advisable. A Bassini type repair was undertaken with interrupted 2-0 silk suture in a two-layer technique allowing for good completion of repair. DESCRIPTION OF PROCEDURE: The patient was brought to the operating room, and given a general LMA type anesthetic. Preoperative antibiotic Ancef was given. Sequential compression device stockings were used and heparin subcutaneously administered. The lower abdomen was clipped and prepared with a chlorhexidine solution and draped sterilely. A curvilinear incision was Electronically Signed By: PAWEL HENDERSON MD 10/25/21 1105 PATIENT NAME: PAWEL HERRERA OPERATIVE REPORT DATE OF : 33 REPORT #: [id number] PHYSICIAN: PAWEL HENDERSON MD PCP: DI JASON REPORT IS CONFIDENTIAL AND NOT TO BE RELEASED WITHOUT AUTHORIZATION [facility] [address], [place] [address] Signed made over the right groin area and dissection carried through the subcutaneous tissue. Immediately noted was a bulky hernia that had attenuated the external oblique almost completely. The hernia and the cord were dissected from the subcutaneous space more fully and ultimately encircled with a Melina drain. The floor of the inguinal canal appeared reasonably intact. The dominant hernia was that of an indirect type. The hernia sac was rather thickened and surprisingly inflamed actually. It was dissected free from the cord and once fully isolated carefully opened and examined internally. The medial wall of the hernia was made up of a significant portion of taenia epiploica and portion of colon. This was dissected free with meticulous care, ultimately preserving the thin hernia sac medially and allowing for placement of the colon and taenia epiploica back into the abdominal cavity. The hernia sac was then secured at its neck with a running 2-0 silk suture doubly applied and redundant hernia sac was amputated and passed for pathology. Examination of floor showed it to be reasonably intact. Given his limited length of predicted life and other factors, mesh free repair was deemed advisable and preferable. The tendon of the transversus abdominis was secured with an Allis clamp. A relaxing incision was made in the external oblique. The tendon of the transversus abdominis was easily thus transport to the ilioinguinal and iliopubic tract. These two structures were reapproximated with interrupted 2-0 silk suture leaving a small gap for the cord to emerge from the properitoneal space. A 2nd layer of such sutures were additionally applied. Good viability of the cord was noted. Aerosolized fibrin glue (Tisseel) was applied to the wound to assure hemostasis more fully. As the external oblique was completely and fully attenuated, reapproximation was not feasible. Ramin layer was reapproximated with interrupted 2-0 Vicryl and skin closed with running subcuticular 3-0 Vicryl. Steri-Strips were applied as was an Acticoat dressing. The patient was ultimately allowed to emerge from anesthesia, extubated, and taken to the recovery room in good condition having suffered no complications. Sponge, needle, and instrument counts were reported as correct x3. 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
== END 2021-10-24 16:28 | disposition home or self-care (01) ==
LOC: DS 09:27
PROVIDERS: ATTEND Surgery
PROC: 0YQ50ZZ Repair Right Inguinal Region, Open Approach (ICD-10-PCS; principal; 2021-10-24 13:00)
DX: K40.90 Unilateral inguinal hernia, without obstruction or gangrene, not specified as recurrent (principal); C48.8 Malignant neoplasm of overlapping sites of retroperitoneum and peritoneum; K21.9 Gastro-esophageal reflux disease without esophagitis; F03.90 Unspecified dementia, unspecified severity, without behavioral disturbance, psychotic disturbance, mood disturbance, and anxiety; I10 Essential (primary) hypertension; E03.9 Hypothyroidism, unspecified; K81.1 Chronic cholecystitis; Z88.1 Allergy status to other antibiotic agents; Z88.8 Allergy status to other drugs, medicaments and biological substances; Z79.82 Long term (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; Z20.822 Contact with and (suspected) exposure to COVID-19
CPT/HCPCS: 87502; C9803; J0690; J1100; J1160; J1644; J1720; J1885; J2405; J2704; J2765; J3010; J7121; U0003